=== PATIENT | male | born 1965 | race Caucasian/White ===

== ENCOUNTER 2018-04-22 02:50 | Outpatient (CLI) | payer MEDICARE, MEDICAID, SELFPAY ==
[2018-04-22 09:45] LABS: Abs Immature Grans 0.25 k/cumm (0.0-0.09); HCT 43.9 % (40.0-50.0); HGB 14.5 g/dL (13.5-17.5); Mean Corpuscular Hemoglobin 31.3 pg (27.0-33.0); Mean Corpuscular Volume 94.6 fL (80-95); Platelet Count 164 x1000/uL (130-400); RBC 4.64 m/cumm (4.50-6.00); RBC Distribution Width 14.1 % (11.8-14.1)
[2018-04-22 09:55] LABS: Ammonia 93 umol/L (11-32); VALPROIC ACID 60.3 ug/mL (50-100)
[2018-04-22 10:17] LABS: Diff Comment Manual Differential
[2018-04-22 10:18] LABS: RBC Morphology Normal
[2018-04-22 10:32] LABS: Cholesterol 115 mg/dL (50-200); HDL Cholesterol 29 mg/dL (40-60); LDL CHOLESTEROL 49 mg/dL (<100); Triglyceride 495 mg/dL (30-150)
[2018-04-22 10:38] LABS: Absolute Lymphocyte Count 1.18 k/cumm (1.2-3.4); Absolute Monocyte Count 0.33 k/cumm (0.11-0.7); Absolute Neutrophil Count 2.77 k/cumm (1.2-6.7)
[2018-04-22 10:39] LABS: Absolute Eosinophil Count 0.19 k/cumm (0.0-0.7)
== END 2018-04-22 02:51 ==
PROVIDERS: PCP Internal Medicine; Visit Provider Psychiatry & Neurology Psychiatry
DX: F25.1 Schizoaffective disorder, depressive type (principal); Z51.81 Encounter for therapeutic drug level monitoring; Z79.899 Other long term (current) drug therapy
CPT/HCPCS: 36415; 80061; 83721; 80164; 82140; 85025

== ENCOUNTER 2018-05-19 07:47 | Outpatient (CLI) | payer MEDICARE, MEDICAID, SELFPAY ==
[2018-05-19 08:25] LABS: Ammonia 30 umol/L (11-32)
[2018-05-19 08:27] LABS: VALPROIC ACID 57.2 ug/mL (50-100)
[2018-05-19 08:54] LABS: Cholesterol 117 mg/dL (50-200); HDL Cholesterol 33 mg/dL (40-60); LDL CHOLESTEROL 42 mg/dL (<100); Triglyceride 247 mg/dL (30-150)
== END 2018-05-19 08:07 ==
PROVIDERS: PCP Internal Medicine; Visit Provider Psychiatry & Neurology Psychiatry
DX: F25.9 Schizoaffective disorder, unspecified (principal); Z51.81 Encounter for therapeutic drug level monitoring
CPT/HCPCS: 36415; 80061; 83721; 80164; 82140

== ENCOUNTER 2018-06-22 15:39 | Emergency (ER) | payer MEDICARE, MEDICAID, SELFPAY ==
[2018-06-22 16:26] VITALS: BP 125/81; PULSE 70; RESP 16; TEMP 36.7; O2SAT 95
[2018-06-22] MEDS: Lidocaine/Epinephri/Tetracaine Topical Gel 3 ML (16:32)
[2018-06-22] MEDS: Clindamycin 150 MG CAP 450 MG PO (17:57)
--- NOTE | 2018-06-23 12:22 | ED.GENADUL_ITS ---
Discharge Plan Disposition Patient Disposition: HOME Condition: Good Discharge Details Chief Complaint: Cellulitis Clinical Impression: Abscess of skin of neck Primary Care Provider: Andres Beck V ED Provider: Angelo Way Home Meds and New Rx's Prescriptions: New clindamycin HCl 150 mg capsule 450 mg PO TID 7 Days Qty: 63 RF: 0 No Action gemfibrozil 600 mg Tablet 600 mg PO BID RF: 0 ferrous sulfate 325 mg (65 mg iron) Tablet 325 mg PO DAILY RF: 0 divalproex 500 mg Tablet Extended Release 24 Hr 1,000 mg PO HS RF: 0 divalproex 500 mg Tablet Extended Release 24 Hr 500 mg PO DAILY RF: 0 clonazepam 1 mg Tablet 1 mg PO HS RF: 0 tamsulosin 0.4 MG capsule 2 tab PO DAILY RF: 0 ibuprofen 200 MG tablet 2 tab PO TID PRNRF: 0 topiramate [Topamax] 100 MG tablet 100 mg PO BID RF: 0 divalproex 250 MG tablet extended release 24 hr 1 tab PO DAILY RF: 0 aripiprazole 2 MG tablet 2 mg PO DAILY RF: 0 lorazepam 1 MG tablet 1 mg PO HS RF: 0 Discharge Instructions Instructions: Abscess (ED) Additional Instructions: Please take the antibiotic as directed. Please follow-up with Dr. Chew on Friday. Please contact his office tomorrow for your scheduled appointment time. If you notice any difficulty breathing, swallowing, fever, chills, worsening of pain in your neck, please return immediately. If you notice any worsening of your symptoms, or any new symptoms such as vomiting, diarrhea, fever, chills, shortness of breath, chest pain, numbness, weakness, or fainting , please return immediately to the emergency department for reevaluation. Please follow up with your primary care provider as soon as possible for reassessment and reevaluation. As always, it was a pleasure participating in your medical care today. Dr Chew [phone] Referrals: Sarmad Caruso DO [ [facility] STAFF PHYSICIAN] - Discharge Data Discharge Date/Time-TO BE ENTERED AT DEPARTURE: 06/22/18 18:02 Medical Decision Making This is a pleasant 52-year-old male with a history of diabetes who presents for evaluation of right-sided abscess on his neck. On exam the abscess is in the superficial plane. No evidence of deep involvement with the deep neck structures or the deep vessels. Ultrasound visualization demonstrates that the abscess is superficial to the platysma. No signs of vessel involvement. No evidence of bruits or other significant abnormalities. The patient shows no physical exam red flags of difficulty with secretions, airway compromise, or crossing of midline of the abscess. Patient was sent down by his PCP for evaluation of this after the PCP had spoken with surgery. I did talk with Dr. Chew and described the scenario, physical exam findings, and patient clinical scenario. Together through shared decision making process we felt that incision and drainage of this abscess was certainly within the scope and responsibility of the emergency department. The area was dressed with let, after anesthesia was achieved with this for a period of 30 minutes of infiltration the area was incised with an 11 blade. A notable amount of purulent discharge was exuded. The area was then packed with iodoform gauze. Patient tolerated this procedure extremely well. He showed no signs of neck swelling or airway compromise. Bleeding was controlled, with no evidence of vessel involvement. The patient has been given first dose of clindamycin here, and will be given a prescription for home use. We set up follow-up with Dr. Chew to occur 48 hours after initial visit for prompt reevaluation. I had a long discussion with the patient and his caregiver who was at bedside for red flags which to immediately return and they understand. I have extensively reviewed the treatment plan and discharge instructions with the patient and their family. I have addressed all patient concerns at this time. The patient and family was made aware of what symptoms to monitor for that would warrant a return to the emergency department. Discussed the plan with the patient and family, they demonstrate verbal understanding and agreement with our assessment and plan at this time. Time out was taken to identify the correct patient, procedure, and site. Risks and benefits were discussed with the patient and consent was obtained. Ultrasound was used to locate the site of maximal fluid collection. The site was sterilized and draped in the typical fashion. Topical lidocaine was placed on the area for greater than 30 minutes and demonstrated vasoconstriction and observe into the surrounding tissue. Appropriate analgesia was obtained. The abscess was incised with an 11 blade, and a notable amount of purulent material and blood were expressed. This fluid was cultured. The wound was packed, cleaned, and dressed. Blood loss was minimal. The patient tolerated the procedure well. There were no complications HPI General Date/Time Provider Initiated Documentation: 06/22/18 17:42 . HPI Narrative: This is a 52-year-old male with a past medical history of diabetes, high cholesterol, and seizures who presents today for evaluation of abscess on his right neck. He states that for the last 4 days it is been there. It started out as a small pimple but has gradually been growing. Went to see his primary care physician at [facility], and after initial assessment due to the abscesses location the patient was referred to our emergency department for potential surgical evaluation versus incision and drainage in the department. The patient denies any complaints of difficulty breathing, difficulty swallowing, tightness in his neck, or systemic symptoms of fever, chills, chest pain, or shortness of breath. He denies any history of recent abscess similar to this. He denies any history of IV or illicit drug use. He is not on any disease modifying antirheumatic agent or immunosuppressive. Patient is not on any blood thinners. The patient has no other complaints at this time. The patient denies any recent surgeries. He denies any tobacco use. Related Data Home Medications Medication Instructions Recorded Confirmed aripiprazole 2 mg PO DAILY 11/06/16 06/22/18 divalproex 1 tab PO DAILY 11/06/16 06/22/18 ibuprofen 2 tab PO TID PRN 11/06/16 06/22/18 tamsulosin 2 tab PO DAILY 11/06/16 06/22/18 topiramate [Topamax] 100 mg PO BID 11/06/16 06/22/18 lorazepam 1 mg PO HS 03/23/18 06/22/18 clindamycin HCl 450 mg PO TID 7 Days #63 cap 06/22/18 clonazepam 1 mg PO HS 06/22/18 06/22/18 divalproex 1,000 mg PO HS 06/22/18 06/22/18 divalproex 500 mg PO DAILY 06/22/18 06/22/18 ferrous sulfate 325 mg PO DAILY 06/22/18 06/22/18 gemfibrozil 600 mg PO BID 06/22/18 06/22/18 Previous Rx's Medication Instructions Recorded clindamycin HCl 450 mg PO TID 7 Days #63 cap 06/22/18 Allergies Allergy/AdvReac Type Severity Reaction Status Date / Time No Known Allergies Allergy Unverified 06/22/18 16:27 General Stated Complaint: Cellulitis ANGELICA: 4 Review of Systems Review of Systems All systems reviewed & are unremarkable except as noted in HPI and below PFSH Social History Smoking/Tobacco Use Status: Former Tobacco Use Surgical History Colonoscopy - MAC (11/08/16) Exam Narrative Exam Narrative: 1.Const: Well-nourished, Well-developed, appearing stated age 2.Eyes: PERRL, no conjunctival injection, and symmetrical lids. 3.ENT: Atraumatic external nose and ears. Moist MM. Neck: Symmetric, trachea midline, No thyromegaly. Neck demonstrates a small to moderate sized abscess on the right side of his neck roughly 2 inches lateral to the trachea. There is no bounding or pulsatile component. No carotid or vertebral bruits. No evidence of crossing of the midline. Abscess itself is roughly 3 cm in diameter , with some mild circumferential erythema extending roughly half a centimeter past the abscess itself. Fluctuance is noted. Erythema and warmth are present. No evidence of crossing midline, no evidence of blood weeks angina, no signs of airway compromise, or swelling in the posterior oropharynx. Patient is able to control his secretions perfectly well. No signs of meningiomas. Normal movement of the neck without any significant pain. Bedside ultrasound demonstrates evidence of the external jugular being slightly lateral to the abscess, the internal jugular and carotid being 3 cm deep to the abscess. The abscess itself is in the superficial plane, with no deep involvement. 4.CVS: +S1/S2, No murmurs or gallops. Peripheral pulses 2+ and equal in all extremities. Brisk capillary refill in all extremities. 5.RESP: Unlabored respiratory effort. Clear to auscultation bilaterally. No wheezes rales or rhonchi 6.GI: Soft, Nontender/Nondistended, No hepatosplenomegaly. No guarding or rebound. 7.MSK: Normocephalic/Atraumatic, Extremities w/o deformity or ttp No cyanosis or clubbing, Normal movement of all extremities 8.Skin: Warm, Dry. No rashes or lesions. Please see ENT description for abscess description. 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 Sensation grossly intact, no focal neurologic deficits. 10.Psych: (AAO) x3. Appropriate mood and affect Course Vital Signs Temperature 36.7 C 06/22/18 16:26 Pulse 70 06/22/18 16:26 Respiratory Rate 16 06/22/18 16:26 Blood Pressure 125/81 06/22/18 16:26 Pulse Oximetry 95 06/22/18 16:26 Temperature 36.7 C 06/22/18 16:26 Temperature Source Temporal Artery Scan 06/22/18 16:26 Pulse 70 06/22/18 16:26 Respiratory Rate 16 06/22/18 16:26 Respiratory Effort Non-Labored 06/22/18 17:03 Blood Pressure 125/81 06/22/18 16:26 Pulse Oximetry 95 06/22/18 16:26 Oxygen Delivery Method Room Air 06/22/18 16:26 Oxygen Flow Rate 0 06/22/18 16:26 Pain Level 3 06/22/18 18:29 Lab/Test Results Lab/Test Results: 06/22/18 17:30 Neck - Right Wound Culture - Preliminary Normal Farzaneh 06/22/18 17:30 Neck - Right Gram Stain - Final
== END 2018-06-22 18:02 | disposition home or self-care (01) ==
PROVIDERS: Emergency Provider Student in an Organized Health Care Education/Training Program; PCP Physician Assistant Medical
DX: L02.11 Cutaneous abscess of neck (principal); E11.9 Type 2 diabetes mellitus without complications; J44.9 Chronic obstructive pulmonary disease, unspecified; Z87.891 Personal history of nicotine dependence; I10 Essential (primary) hypertension
CPT/HCPCS: 10061; 87070; 87205

== ENCOUNTER → 2018-06-24 10:16 | Outpatient (BNVA) | payer MEDICARE, MEDICAID, SELFPAY | PROVIDERS: PCP Physician Assistant Medical; Referring Provider Physician Assistant Medical; Visit Provider Surgery | DX: L02.91 Cutaneous abscess, unspecified (principal); J44.9 Chronic obstructive pulmonary disease, unspecified; Z87.891 Personal history of nicotine dependence; E11.9 Type 2 diabetes mellitus without complications | CPT/HCPCS: 99212; 99213 ==

== ENCOUNTER 2018-07-15 07:26 | Outpatient (CLI) | payer MEDICARE, MEDICAID, SELFPAY ==
[2018-07-15 09:22] LABS: Anion Gap 11.2 mmol/L (3-11); BUN 22 mg/dL (7-18); CO2 21.8 mmol/L (21.0-32.0); CREATININE 0.96 mg/dL (0.70-1.30); Chloride 108 mmol/L (98-107); Cholesterol 138 mg/dL (50-200); Glucose 115 mg/dL (70-100); HDL Cholesterol 32 mg/dL (40-60); LDL CHOLESTEROL 56 mg/dL (<100); Potassium 4.2 mmol/L (3.5-5.1); Sodium 141 mmol/L (136-145); Triglyceride 246 mg/dL (30-150)
== END 2018-07-15 07:46 ==
PROVIDERS: PCP Physician Assistant Medical; Visit Provider Physician Assistant Medical
DX: I10 Essential (primary) hypertension (principal); Z13.6 Encounter for screening for cardiovascular disorders
CPT/HCPCS: 36415; 80048; 80061; 83721

== ENCOUNTER 2018-09-09 01:26 | Outpatient (CLI) | payer MEDICARE, MEDICAID, SELFPAY ==
--- NOTE | 2018-09-09 10:30 | MERGE_ITS ---
*[facility]* *[facility]* [address] [place] [address] Date of study: 09/09/2018 Transthoracic Echocardiography M-mode, complete 2D, complete spectral Doppler, and color Doppler *STUDY CONCLUSIONS* Summary: 1. Left ventricle: The cavity size was normal. Wall thickness was normal. Systolic function was normal. The estimated ejection fraction was 55-60%. Wall motion was normal; there were no regional wall motion abnormalities. Diastolic parameters were normal. 2. Right ventricle: The cavity size was normal. Wall thickness was normal. Systolic function was normal. *PATIENT PRESENTATION* Height: 182.9cm ((72in) ) S/D Pressure: 126 / 75 Weight: 115.1kg ((253.2lb) ) BSA: 2.46m^2 Test start time: 10:40 AM. Test stop time: 11:40 AM. PERFORMING [facility] CHAINMAN RT Abdirashid (R)(CT), [facility] ORDERING Andres Beck V REFERRING Andres Beck V *PROCEDURE DATA* Procedure information: The patient was identified by two identifiers. This study was interpreted by [facility]. Pertinent images and digital data are archived for permanent storage and are available for subsequent review. No prior study was available for comparison. Study status: Routine. Transthoracic echocardiography. M-mode, complete 2D, complete spectral Doppler, and color Doppler. A Transthoracic Echocardiogram was performed. Scanning was performed from the parasternal, apical, subcostal, and suprasternal notch acoustic windows. Images were obtained using an [id number] cardiac ultrasound machine. Study completion: The patient tolerated the procedure well. There were no complications. *CARDIAC ANATOMY* Left ventricle: The cavity size was normal. Wall thickness was normal. Systolic function was normal. The estimated ejection fraction was 55-60%. Wall motion was normal; there were no regional wall motion abnormalities. Diastolic parameters were normal. Aortic valve: Trileaflet; normal thickness leaflets. Mobility was not restricted. Doppler: Transvalvular velocity was within the normal range. There was no stenosis. There was no significant regurgitation. VTI ratio of LVOT to aortic valve: 0.8. Valve area (VTI): 3cm^2. Indexed valve area (VTI): 1.2cm^2/m^2. Peak velocity ratio of LVOT to aortic valve: 0.87. Valve area (Vmax): 3.3cm^2. Indexed valve area (Vmax): 1.3cm^2/m^2. Mean velocity ratio of LVOT to aortic valve: 0.67. Valve area (Vmean): 2.5cm^2. Indexed valve area (Vmean): 1cm^2/m^2. Mean gradient (S): 2.7mm Hg. Peak gradient (S): 3.9mm Hg. Aorta: Aortic root: The aortic root was normal in size. Ascending aorta: The ascending aorta was normal in size. Mitral valve: Structurally normal valve. Mobility was not restricted. Doppler: Transvalvular velocity was within the normal range. There was no evidence for stenosis. There was no significant regurgitation. Valve area by pressure half-time: 4.3cm^2. Indexed valve area by pressure half-time: 1.8cm^2/m^2. Peak gradient (D): 4.8mm Hg. Left atrium: The atrium was normal in size. Right ventricle: The cavity size was normal. Wall thickness was normal. Systolic function was normal. Pulmonic valve: Structurally normal valve. Doppler: Transvalvular velocity was within the normal range. There was no evidence for stenosis. There was trivial regurgitation. Peak gradient (S): 3.2mm Hg. Tricuspid valve: Structurally normal valve. Doppler: Transvalvular velocity was within the normal range. There was no evidence for stenosis. There was no significant regurgitation. Pulmonary artery: Pulmonary systolic pressure was within the normal range, in the range of 25mm Hg to 35mm Hg. Right atrium: The atrium was normal in size. Pericardium: There was no pericardial effusion. Systemic veins: Inferior vena cava: Well visualized. The vessel was dilated. The respirophasic diameter changes were blunted (less than 50%). Baseline ECG: Normal sinus rhythm. Measurements Left ventricle Value Reference LV ID, ED, PLAX 5.7 cm 3.5 - 6.0 LV ID, ES, PLAX 4.0 cm 2.1 - 4.0 LV PW thickness, ED, PLAX 1.0 cm LV end-diastolic volume, 1-p A2C 173 ml LV ejection fraction, 1-p A2C 54 % LV end-diastolic volume, 1-p A4C 190 ml LV ejection fraction, 1-p A4C 57 % LV e', lateral 0.111 m/sec LV E/e', lateral 10 LV e', medial 0.104 m/sec LV E/e', medial 11 LV e', average 0.108 m/sec LV E/e', average 10 Ventricular septum Value Reference IVS thickness, ED, PLAX 1.0 cm LVOT Value Reference LVOT ID, A-P 2.2 cm LVOT area 3.8 cm^2 LVOT peak velocity, S 0.86 m/sec LVOT mean velocity, S 0.53 m/sec LVOT VTI, S 18.5 cm LVOT peak gradient, S 2.9 mm Hg LVOT mean gradient, S 1.4 mm Hg Stroke volume (SV), LVOT DP 70 ml Stroke index (SV/bsa), LVOT DP 29 ml/m^2 Aortic valve Value Reference Aortic valve peak velocity, S 1 m/sec Aortic valve mean velocity, S 0.79 m/sec Aortic valve VTI, S 23.0 cm Aortic mean gradient, S 2.7 mm Hg Aortic peak gradient, S 3.9 mm Hg VTI ratio, LVOT/AV 0.8 Aortic valve area, VTI 3 cm^2 Velocity ratio, peak, LVOT/AV 0.87 Aortic valve area, peak velocity 3.3 cm^2 Velocity ratio, mean, LVOT/AV 0.67 Aortic valve area, mean velocity 2.5 cm^2 Aortic valve area/bsa, mean velocity 1 cm^2/m^2 Aorta Value Reference Aortic root ID, ED 3.6 cm Ascending aorta ID, A-P, S 3.1 cm Left atrium Value Reference LA area, ES, A4C 18.6 cm^2 8.8 - 23.4 LA area, ES, A2C 17 cm^2 LA volume/bsa, ES, 1-p A4C 25 ml/m^2 LA volume, ES, 2-p 47 ml LA volume/bsa, ES, 2-p 19 ml/m^2 Mitral valve Value Reference Mitral E-wave peak velocity 1.09 m/sec Mitral A-wave peak velocity 0.86 m/sec Mitral deceleration time 176 ms 150 - 230 Mitral pressure half-time 51 ms Mitral peak gradient, D 4.8 mm Hg Mitral E/A ratio, peak 1.28 Mitral valve area, PHT, DP 4.3 cm^2 Pulmonary veins Value Reference Pulmonary vein peak velocity, S 0.55 m/sec Pulmonary vein peak velocity, D 0.47 m/sec Pulmonary vein velocity ratio, peak, 1.17 S/D Pulmonary vein A-wave reversal peak 0.37 m/sec velocity Tricuspid valve Value Reference Tricuspid regurg peak velocity 2.5 m/sec Tricuspid peak RV-RA gradient 24.1 mm Hg Right atrium Value Reference RA area, ES, A4C 15.8 cm^2 8.3 - 19.5 Pulmonic valve Value Reference Pulmonic peak gradient, S 3.2 mm Hg Legend: (L) and (H) pippa values outside specified reference range. I have personally reviewed the images and have reviewed and edited the reported findings. Electronically signed by Corbin Rivera 09/09/2018 12:41
== END 2018-09-09 01:46 ==
PROVIDERS: PCP Physician Assistant Medical; Visit Provider Physician Assistant Medical
DX: R60.9 Edema, unspecified (principal); I10 Essential (primary) hypertension
CPT/HCPCS: 93306

== ENCOUNTER 2019-03-19 08:11 | Outpatient (CLI) | payer MEDICARE, MEDICAID, SELFPAY ==
[2019-03-19 09:43] LABS: Lithium 0.72 mmol/L (0.60-1.20)
[2019-03-19 09:51] LABS: ALT 46 U/L (12-78); AST 20 U/L (15-37); Albumin 4.1 g/dL (3.4-5.0); Alkaline Phosphatase 87 U/L (46-116); BUN 21 mg/dL (7-18); Bilirubin, Total 0.4 mg/dL (0.2-1.0); CREATININE 1.08 mg/dL (0.70-1.30); Calcium 9.3 mg/dL (8.5-10.1); Calculated LDL 51 mg/dL; Chloride 105 mmol/L (98-107); Cholesterol 135 mg/dL (50-200); Glucose 114 mg/dL (70-100); HDL Cholesterol 26 mg/dL (40-60); Magnesium 1.9 mg/dL (1.8-2.4); Potassium 4.1 mmol/L (3.5-5.1); Sodium 140 mmol/L (136-145); Total Protein 7.7 g/dL (6.4-8.2); Triglyceride 294 mg/dL (30-150)
== END 2019-03-19 08:31 ==
PROVIDERS: PCP Physician Assistant Medical; Visit Provider Psychiatry & Neurology Psychiatry
DX: E11.9 Type 2 diabetes mellitus without complications (principal); I10 Essential (primary) hypertension; F25.1 Schizoaffective disorder, depressive type; Z51.81 Encounter for therapeutic drug level monitoring; Z79.899 Other long term (current) drug therapy
CPT/HCPCS: 36415; 80053; 80061; 83721; 80178; 83735; 84443

== ENCOUNTER 2019-12-28 00:41 | Outpatient (CLI) | payer MEDICARE, MEDICAID, SELFPAY ==
--- NOTE | 2019-12-28 10:05 | DI.RAD_ITS ---
EXAM: XR ABDOMEN FLAT UPRIGHT CLINICAL HISTORY: H/O LOOSE STOOL,? OVERFLOW DIARRHEA, ASSESS BURDEN OF STOOL, ? CONSTIPATION TECHNIQUE: 2D digital imaging was performed. COMPARISON: No exams were available for comparison FINDINGS: The heart size is normal. The visualized portions of the lungs appear clear. No free air is seen b eneath the diaphragm. There is increased quantity of stool seen throughout the colon. There is no a bnormal bowel distention or air-fluid levels. There is no gross evidence of urinary tract calcificat ion. No organomegaly is seen. IMPRESSION: Increased quantity of stool throughout the colon. No evidence obstruction.
[2019-12-28 10:38] LABS: Abs Immature Grans 0.15 k/cumm (0.0-0.09); Absolute Basophil Count 0.03 k/cumm (0.0-0.2); Absolute Eosinophil Count 0.42 k/cumm (0.0-0.7); Absolute Lymphocyte Count 1.72 k/cumm (1.2-3.4); Absolute Neutrophil Count 3.65 k/cumm (1.2-6.7); Basophils % 0.5; Eosinophils % 6.6; HCT 44.7 % (40.0-50.0); HGB 14.7 g/dL (13.5-17.5); Immature Grans % 2.4 %; Mean Corp. HGB Concentration 32.9 g/dL (32.0-36.0); Mean Corpuscular Hemoglobin 29.6 pg (27.0-33.0); Mean Corpuscular Volume 89.9 fL (80-95); Mean Platelet Volume 11.7 fL (8.0-11.0); Monocytes % 6.3; Neutrophils % 57.2; Platelet Count 193 x1000/uL (130-400); RBC 4.97 m/cumm (4.50-6.00); RBC Distribution Width 15.2 % (11.8-14.1); White Blood Cell Count 6.37 k/cumm (4.4-10.8)
[2019-12-28 11:03] LABS: ALT 45 U/L (16-63); AST 22 U/L (15-37); Albumin 4.3 g/dL (3.4-5.0); Alkaline Phosphatase 77 U/L (46-116); Anion Gap 11.4 mmol/L (3-11); BUN 17 mg/dL (7-18); Bilirubin, Total 0.6 mg/dL (0.2-1.0); C-Reactive Protein < 0.05 mg/dL (0.0-0.3); CO2 21.6 mmol/L (21.0-32.0); Calcium 9.5 mg/dL (8.5-10.1); Chloride 107 mmol/L (98-107); Glucose 145 mg/dL (74-106); Potassium 3.8 mmol/L (3.5-5.1); Sodium 140 mmol/L (136-145); TSH 2.04 uIU/mL (0.36-3.74); Total Protein 8.2 g/dL (6.4-8.2)
[2019-12-29 15:11] LABS: IgA 134 mg/dL (85-499); IgG 1327 mg/dL (610-1,616); IgM 90 mg/dL (35-242)
[2019-12-29 20:45] LABS: Tissue Transglutaminase Ab IgA <1.2 U/mL
== END 2019-12-28 01:01 ==
PROVIDERS: PCP Physician Assistant Medical; Visit Provider Oral & Maxillofacial Surgery
DX: R19.7 Diarrhea, unspecified (principal); R19.5 Other fecal abnormalities; K59.00 Constipation, unspecified; R15.9 Full incontinence of feces
CPT/HCPCS: 36415; 80053; 82784; 74019; 83516; 84443; 85025; 86140

== ENCOUNTER → 2020-02-21 10:28 | Outpatient (BNVA) | payer MEDICARE, MEDICAID, SELFPAY | PROVIDERS: PCP Physician Assistant Medical; Referring Provider Physician Assistant Medical; Visit Provider Nurse Practitioner Gerontology | DX: N40.0 Benign prostatic hyperplasia without lower urinary tract symptoms (principal); R32 Unspecified urinary incontinence; J44.9 Chronic obstructive pulmonary disease, unspecified; E11.9 Type 2 diabetes mellitus without complications; Z87.891 Personal history of nicotine dependence | CPT/HCPCS: 81003; 99204; 99215 ==

== ENCOUNTER 2020-02-21 12:06 | Outpatient (CLI) | payer MEDICARE, MEDICAID, SELFPAY ==
[2020-02-22 09:18] LABS: PSA, Screening 0.7 ng/mL (0.0-3.5)
== END 2020-02-21 12:26 ==
PROVIDERS: PCP Physician Assistant Medical; Visit Provider Nurse Practitioner Gerontology
DX: N40.0 Benign prostatic hyperplasia without lower urinary tract symptoms (principal); R32 Unspecified urinary incontinence; Z12.5 Encounter for screening for malignant neoplasm of prostate
CPT/HCPCS: 84153

== ENCOUNTER 2020-02-26 00:24 | Emergency (ER) | payer MEDICARE, MEDICAID, SELFPAY ==
--- NOTE | 2020-02-26 00:30 | DI.CT_ITS ---
EXAM: CT ABDOMEN PELVIS W CLINICAL HISTORY: RLQ abdominal pain, r/o appe/obstruction TECHNIQUE: Imaging Protocol: Axial computed tomography images with coronal and sagittal reformatted images were created and reviewed CONTRAST MATERIAL: Intravenous: Omnipaque 350 Contrast volume:100 mL Oral: No COMPARISON: No exams were available for comparison FINDINGS: There is scarring or atelectasis in the right lung base. The liver is mildly enlarged. No hepatic m ass is seen. The portal, superior mesenteric and splenic veins are patent. The gallbladder is unrem arkable. There is no biliary ductal dilatation. The pancreas is unremarkable. There is mild spleno megaly. The adrenal glands are unremarkable. The kidneys show normal size. No solid renal mass is present. Nonobstructing stones are seen in the right kidney. There is a small cyst in the inferior pole of the left kidney. The urinary bladder is intact. The reproductive organs are unremarkable. Bowel shows no evidence of obstruction or inflammation. There is a normal appendix present. There i s atherosclerosis of the abdominal aorta but no aneurysmal dilatation. No significant abdominal or p elvic ascites or pneumoperitoneum is present. There is mild stranding in the central mesentery and m ildly prominent mesenteric lymph nodes. There is a small fat containing umbilical hernia. Degenerat fritz changes are seen in the spine. IMPRESSION: 1. No evidence of acute appendicitis. A normal appendix is visualized. 2. Right nephrolithiasis. No hydronephrosis. 3. Mild mesenteric stranding with mildly prominent lymph nodes in the region which may represent mese nteric adenitis or mesenteritis. 4. Mild hepatosplenomegaly. RADIATION DOSE DELIVERED: Total DLP DATA REPOSITORY: All CT scans at this facility are submitted to the National Radiology Data Registry (NRDR) Dose Index Registry (DIR) with the [employer] (A[employer]). RADIATION OPTIMIZATION: All CT scans at this facility use at least one of these dose optimization te chniques: automated exposure control; mA and/or kV adjustment per patient size (includes targeted exa ms where dose is matched to clinical indication); or iterative reconstruction.
[2020-02-26 00:32] VITALS: BP 128/68; PULSE 87; RESP 16; TEMP 37.2; O2SAT 97
--- NOTE | 2020-02-26 00:34 | ED.GENADUL_ITS ---
Discharge Plan Disposition Patient Disposition: HOME Condition: Good Discharge Details Chief Complaint: Abd Prob Clinical Impression: Acute mesenteric adenitis Primary Care Provider: Andres Beck V ED Provider: Angelo Way Home Meds and New Rx's Prescriptions: Continued lorazepam 2 mg tablet 2 mg PO DAILY PRNRF: 0 famotidine 20 mg tablet 20 mg PO DAILY RF: 0 Reguloid (psyllium husk) 3 gram/5.4 gram powder 1 tbs PO DAILY RF: 0 Dairy Relief 9,000 unit tablet 9,000 unit PO ONCE PRN (Reason: lactose intolerance) RF: 0 Humira 40 mg/0.8 mL syringe kit 40 mg SC Q2W RF: 0 risperidone [Risperdal] 1 mg tablet 1 mg PO TID RF: 0 lithium carbonate 300 mg capsule 300 mg PO BID RF: 0 prazosin 1 mg capsule 8 mg PO QHS RF: 0 finasteride 5 mg tablet 5 mg PO DAILY Qty: 30 RF: 2 gemfibrozil 600 mg Tablet 600 mg PO BID RF: 0 clonazepam 1 mg tablet 1 mg PO BID RF: 0 tamsulosin 0.4 MG capsule 2 tab PO DAILY RF: 0 ibuprofen 200 MG tablet 2 tab PO TID PRNRF: 0 topiramate [Topamax] 100 MG tablet 100 mg PO BID RF: 0 lorazepam 1 MG tablet 1 mg PO HS RF: 0 Discharge Instructions Instructions: Mesenteric Adenitis (ED) Additional Instructions: At this time your abdominal pain is being caused from something called mesenteric adenitis which is mild inflammation around some of the structures in your abdomen. This is often caused from a virus or some other iow-zrcr-cmeavgwxyys cause. It usually resolves on its own with time. Please stick with an easy diet over the next 2 to 3 days of liquids, oatmeal, rice, toast, applesauce or bananas. Avoid any spicy or citrus-based foods. Drink p lenty of fluids. Please take Tylenol and Motrin as needed for pain. If you notice any worsening of your symptoms, or any new symptoms such as vomiting, diarrhea, fever, chills, shortness of breath, chest pain, numbness, weakness, or fainting , please return immediately to the emergency department for reevaluation. Please follow up with your primary care provider as soon as possible for reassessment and reevaluation. As always, it was a pleasure participating in your medical care today. Referrals: Andres Beck V [Primary Care Provider] - Medical Decision Making 54-year-old male with a past medical history of type 2 diabetes, developmental disorder, schizoaffective disorder, BPH, COPD, presents today for evaluation of abdominal pain. The patient is a difficult historian secondary to his baseline. He is with his guardian at this time. Patient states that for the last 2 days he has had abdominal pain located in the right lower quadrant. He has been nauseous but denies any recent vomiting. He did have a bowel movement yesterday which did have some small bright red blood in it, but no melanotic stool per the caregivers. He was initially constipated that he knew was attributed to straining and he has not been eating much secondary to his abdominal pain. He denies any radiation, urinary complaints or genital complaints. He denies chest pain or shortness of breath. No other complaints at this time. He does have a history of previous constipation but states this feels different. Physical exam demonstrates a mildly distended abdomen, reduced bowel sounds, notable tenderness in the right lower quadrant but mild diffuse tenderness throughout. Genital exam normal, symptoms inconsistent with torsion. Differential is highest for appendicitis, constipation obstruction or Denise syndrome. We will gently rehydrate, treat the patient's pain, get a CT scan, monitor closely and reassess. [address] scan results have returned, no evidence of acute appendicitis per virtual radiology. Patient does have signs and symptoms consistent with mesenteric adenitis. Patient's laboratory work-up has returned, notably benign, no white count bandemia or left shift, normal electrolytes and normal lipase. Patient's pain is notably resolved on reassessment, and is asking to eat food. Will do a p.o. trial. Still pending UA. At this time though clinically the patient symptoms are clinically consistent with mesenteric adenitis and inconsistent with an acute life-threatening intra-abdominal pathology, GI bleed or other abnormality. 30 a.m. Patient's tolerated p.o. trial well, urinalysis negative. Requesting discharge home. Patient will be discharged with the care of his caregivers. I have extensively reviewed the treatment plan and discharge instructions with the patient and their family. I have addressed all patient concerns at this time. The patient and family was made aware of what symptoms to monitor for that would warrant a return to the emergency department. Discussed the plan with the patient and family, they demonstrate verbal understanding and agreement with our assessment and plan at this time. FINDINGS: Lungs: Patchy peripheral reticular density in the right lung base may represent subsegmental atelectasis or early/mild peripheral interstitial fibrosis. Heart: Heart size normal. Mediastinal space: The visualized distal esophagus is normal. Liver: Mild hepatomegaly measuring 21 cm craniocaudal No mass lesions. No intrahepatic biliary ductal dilatation. Gallbladder and bile ducts: Normal. No calcified stones. No ductal dilation. Pancreas: Normal. No inflammatory changes or ductal dilation. Spleen: Mild splenomegaly measuring 15.2 cm maximum dimension. Adrenals: Normal. No adrenal mass. Kidneys and ureters: No acute abnormalities. No hydronephrosis or hydroureter. 4 mm nonobstructive right renal stone. No ureteral stones. Stomach and bowel: The stomach is grossly normal. The small bowel is normal with no evidence of obstruction. No acute colonic abnormalities. Appendix: The appendix is normal in caliber and demonstrates no evidence of appendicitis. Intraperitoneal space: No free fluid or air. Vasculature: Mild atherosclerotic aortoiliac calcification without aneurysm. Lymph nodes: There is mild central mesenteric haziness/stranding in the left upper quadrant with a few slightly prominent mesenteric nodes measuring up to 7.5 mm short axis. This is suspicious for mild mesenteric adenitis/mesenteritis. No associated bowel wall abnormalities or fluid collections were seen. Bladder: Unremarkable as visualized. Reproductive: Moderately enlarged prostate. Bones/joints: No acute osseous abnormalities. Soft tissues: Small fatty umbilical hernia . No evidence of associated bowel herniation or bowel obstruction. IMPRESSION: 1. Normal appendix. 2. 4 mm nonobstructive right renal stone. No ureteral stones or hydronephrosis. 3. Mild central mesenteric haziness/stranding with a few slightly prominent mesenteric nodes in this region, suspicious for mild mesenteric adenitis/mesenteritis. 4. Mild hepatomegaly and mild splenomegaly. 5. Patchy peripheral reticular densities in the right lung base could relate to peripheral scarring and atelectasis or early/mild interstitial fibrosis. 6. Additional incidental findings detailed above. Thank you for allowing us to participate in the care of your patient. Dictated and Authenticated by: Alejo Murillo MD 02/26/2020 1:54 AM Eastern Time ([place] & [place]) HPI General Date/Time Provider Initiated Documentation: 06/20/20 00:25 . HPI Narrative: 54-year-old male with a past medical history of type 2 diabetes, developmental disorder, schizoaffective disorder, BPH, COPD, presents today for evaluation of abdominal pain. The patient is a difficult historian secondary to his baseline. He is with his guardian at this time. Patient states that for the last 2 days he has had abdominal pain located in the right lower quadrant. He has been nauseous but denies any recent vomiting. He did have a bowel movement yesterday which did have some small bright red blood in it, but no melanotic stool per the caregivers. He has had normal bowel movements since then. He has not been eating much secondary to his abdominal pain. He denies any radiation, urinary complaints or genital complaints. He denies chest pain or shortness of breath. No other complaints at this time. He does have a hist ory of previous constipation but states this feels different. Related Data Home Medications Medication Instructions Recorded Confirmed ibuprofen 2 tab PO TID PRN 11/06/16 02/21/20 tamsulosin 2 tab PO DAILY 11/06/16 02/21/20 topiramate [Topamax] 100 mg PO BID 11/06/16 02/21/20 lorazepam 1 mg PO HS 03/23/18 02/21/20 gemfibrozil 600 mg PO BID 06/22/18 02/21/20 adalimumab 40 mg/0.8 mL 40 mg SC Q2W 11/08/19 02/21/20 subcutaneous syringe kit lithium carbonate 300 mg capsule 300 mg PO BID 11/08/19 02/21/20 risperidone 1 mg tablet 1 mg PO TID tab 11/08/19 02/21/20 clonazepam 1 mg tablet 1 mg PO BID tab 02/21/20 02/21/20 famotidine 20 mg tablet 20 mg PO DAILY 02/21/20 02/21/20 lactase 9,000 unit tablet 9,000 unit PO ONCE PRN 02/21/20 02/21/20 lorazepam 2 mg tablet 2 mg PO DAILY PRN 02/21/20 02/21/20 prazosin 1 mg capsule 8 mg PO QHS cap 02/21/20 02/21/20 psyllium husk 3 gram/5.4 gram oral 1 tbs PO DAILY 02/21/20 02/21/20 powder finasteride 5 mg tablet 5 mg PO DAILY #30 tab 02/22/20 Previous Rx's Medication Instructions Recorded finasteride 5 mg tablet 5 mg PO DAILY #30 tab 02/22/20 Allergies Allergy/AdvReac Type Severity Reaction Status Date / Time lactose Allergy Verified 02/26/20 00:58 General ANGELICA: 4 Review of Systems All systems reviewed & are unremarkable except as noted in HPI and below PFSH Medical History Asthma (Chronic) BPH (benign prostatic hyperplasia) (Chronic) Chronic diarrhea (Acute) COPD (chronic obstructive pulmonary disease) (Chronic) Diabetes mellitus type 2 in obese (Chronic) Drug-induced Parkinsonism (Acute) Edema (Acute) Foot callus (Acute) History of seizure disorder (Chronic) Hyperlipidemia (Chronic) Impulse disorder (Chronic) Lactose intolerance (Acute) Prostatic hypertrophy (Acute) Psoriasis (Chronic) Schizoaffective disorder (Chronic) Seizures (Acute) Skin cancer (Acute) Sleep disturbance (Acute) Urge incontinence (Acute) Urinary incontinence (Acute) Surgical History Colonoscopy - MAC (11/08/16) H/O pilonidal cyst (Resolved) Social History Smoking/Tobacco Use Status: Former Tobacco Use Alcohol Intake: never Drug use: Never Substance use type: does not use Do you feel safe at home: Yes Do you feel safe in your relationship?: Yes Exam Narrative Exam Narrative: 1.Const: Well-nourished, Well-developed, appearing stated age 2.Eyes: PERRL, no conjunctival injection, and symmetrical lids. 3.ENT: Atraumatic external nose and ears. Moist MM. Neck: Symmetric, trachea midline, No thyromegaly. 4.CVS: +S1/S2, No murmurs or gallops. Peripheral pulses 2+ and equal in all e xtremities. Brisk capillary refill in all extremities. 5.RESP: Unlabored respiratory effort. Clear to auscultation bilaterally. No wheezes rales or rhonchi 6.GI: Mildly distended abdomen, voluntary guarding, rebound in the right lower quadrant, mild diffuse tenderness throughout. Genital exam demonstrates normal male genitalia, no testicular or scrotal tenderness, normal cremasteric reflex bilaterally. No evidence of testicular torsion. 7.MSK: Normocephalic/Atraumatic, Extremities w/o deformity or ttp No cyanosis or clubbing, Normal movement of all extremities 8.Skin: Warm, Dry. No rashes or lesions. 9.Neuro: wood last maker II-XII grossly intact. Sensation grossly intact, no focal neurologic deficits. 10.Psych: (AAO) x3. Appropriate mood and affect
[2020-02-26] MEDS: Normal Saline 500 ML IV (00:48)
[2020-02-26 00:56] LABS: Absolute Basophil Count 0.03 k/cumm (0.0-0.2); Absolute Eosinophil Count 0.42 k/cumm (0.0-0.7); Absolute Lymphocyte Count 1.89 k/cumm (1.2-3.4); Absolute Monocyte Count 0.57 k/cumm (0.11-0.7); Basophils % 0.5; Eosinophils % 6.5; HCT 42.5 % (40.0-50.0); HGB 14.3 g/dL (13.5-17.5); Immature Grans % 1.5 %; Mean Corp. HGB Concentration 33.6 g/dL (32.0-36.0); Mean Corpuscular Hemoglobin 30.4 pg (27.0-33.0); Mean Corpuscular Volume 90.4 fL (80-95); Mean Platelet Volume 11.8 fL (8.0-11.0); Monocytes % 8.8; Neutrophils % 53.7; Platelet Count 174 x1000/uL (130-400); RBC Distribution Width 14.7 % (11.8-14.1); White Blood Cell Count 6.51 k/cumm (4.4-10.8)
[2020-02-26 00:58] VITALS: PULSE 77; RESP 17
[2020-02-26 01:00] VITALS: PULSE 79; RESP 18
[2020-02-26 01:08] LABS: ALT 41 U/L (16-63); AST 20 U/L (15-37); Albumin 4.2 g/dL (3.4-5.0); Alkaline Phosphatase 75 U/L (46-116); Anion Gap 12.5 mmol/L (3-11); BUN 18 mg/dL (7-18); Bilirubin, Total 0.4 mg/dL (0.2-1.0); CO2 21.5 mmol/L (21.0-32.0); CREATININE 1.17 mg/dL (0.70-1.30); Calcium 9.2 mg/dL (8.5-10.1); Chloride 105 mmol/L (98-107); Glucose 146 mg/dL (74-106); Lipase 178 U/L (73-393); Potassium 3.8 mmol/L (3.5-5.1); Sodium 139 mmol/L (136-145)
[2020-02-26 01:10] VITALS: PULSE 79; RESP 18
[2020-02-26 01:10] LABS: PTT Activated 27.1 sec (21.0-31.4)
[2020-02-26 01:23] LABS: Prothrombin Time 10.3 sec (9.3-11.0)
[2020-02-26] MEDS: Omnipaque 350 MG/ML 100 ML BTL IJ (01:31)
[2020-02-26] MEDS: Normal Saline Flush 10 ML SYR IVP (01:32)
[2020-02-26] MEDS: Normal Saline - Diluent 50 ML VIAL IV (01:33)
--- NOTE | 2020-02-26 01:55 | DI.VRAD_ITS ---
PROCEDURE INFORMATION: Exam: CT Abdomen And Pelvis With Contrast Exam date and time: 02/26/2020 1:23 AM Age: 54 years old Clinical indication: Abdominal pain; Other: Rlq TECHNIQUE: Imaging protocol: Computed tomography of the abdomen and pelvis with intravenous contrast. Radiation optimization: All CT scans at this facility use at least one of these dose optimization techniques: automated exposure control; mA and/or kV adjustment per patient size (includes targeted exams where dose is matched to clinical indication); or iterative reconstruction. Contrast material: OMNIPAQUE 350; Contrast volume: 100 ml; Contrast route: INTRAVENOUS (IV); COMPARISON: CR XR ABDOMEN FLAT UPRIGHT 12/28/2019 10:00 AM FINDINGS: Lungs: Patchy peripheral reticular density in the right lung base may represent subsegmental atelectasis or early/mild peripheral interstitial fibrosis. Heart: Heart size normal. Mediastinal space: The visualized distal esophagus is normal. Liver: Mild hepatomegaly measuring 21 cm craniocaudal No mass lesions. No intrahepatic biliary ductal dilatation. Gallbladder and bile ducts: Normal. No calcified stones. No ductal dilation. Pancreas: Normal. No inflammatory changes or ductal dilation. Spleen: Mild splenomegaly measuring 15.2 cm maximum dimension. Adrenals: Normal. No adrenal mass. Kidneys and ureters: No acute abnormalities. No hydronephrosis or hydroureter. 4 mm nonobstructive right renal stone. No ureteral stones. Stomach and bowel: The stomach is grossly normal. The small bowel is normal with no evidence of obstruction. No acute colonic abnormalities. Appendix: The appendix is normal in caliber and demonstrates no evidence of appendicitis. Intraperitoneal space: No free fluid or air. Vasculature: Mild atherosclerotic aortoiliac calcification without aneurysm. Lymph nodes: There is mild central mesenteric haziness/stranding in the left upper quadrant with a few slightly prominent mesenteric nodes measuring up to 7.5 mm short axis. This is suspicious for mild mesenteric adenitis/mesenteritis. No associated bowel wall abnormalities or fluid collections were seen. Bladder: Unremarkable as visualized. Reproductive: Moderately enlarged prostate. Bones/joints: No acute osseous abnormalities. Soft tissues: Small fatty umbilical hernia . No evidence of associated bowel herniation or bowel obstruction. IMPRESSION: 1. Normal appendix. 2. 4 mm nonobstructive right renal stone. No ureteral stones or hydronephrosis. 3. Mild central mesenteric haziness/stranding with a few slightly prominent mesenteric nodes in this region, suspicious for mild mesenteric adenitis/mesenteritis. 4. Mild hepatomegaly and mild splenomegaly. 5. Patchy peripheral reticular densities in the right lung base could relate to peripheral scarring and atelectasis or early/mild interstitial fibrosis. 6. Additional incidental findings detailed above. Dictated and Authenticated by: Alejo Murillo MD. Ordering:CANDACE Stephens MD
[2020-02-26 02:00] VITALS: PULSE 81; TEMP 36.9; O2SAT 97
[2020-02-26] MEDS: Ketorolac 30 MG/ML VIAL IVP (02:04)
[2020-02-26 02:23] LABS: Bilirubin Negative (Negative); Blood Negative (Negative); Clarity Clear (Clear); Glucose Negative (Negative); Ketones Negative (Negative); Leukocyte Esterase Negative (Negative); Nitrite Negative (Negative); Urobilinogen 0.2 EU/dL (Up TO 0.2)
== END 2020-02-26 02:35 | disposition home or self-care (01) ==
PROVIDERS: Emergency Provider Student in an Organized Health Care Education/Training Program; PCP Physician Assistant Medical
DX: I88.0 Nonspecific mesenteric lymphadenitis (principal); F25.9 Schizoaffective disorder, unspecified; E11.9 Type 2 diabetes mellitus without complications; J44.9 Chronic obstructive pulmonary disease, unspecified; Z87.891 Personal history of nicotine dependence
CPT/HCPCS: 36415; 80053; 83690; 86850; 86900; 86901; 96374; 96375; 99285; 74177; 81003; 85025; 85610; 85730; J1885; J3490

== ENCOUNTER 2020-03-24 03:05 | Outpatient (CLI) | payer MEDICARE, MEDICAID, SELFPAY ==
[2020-03-24 08:56] LABS: Abs Immature Grans 0.09 k/cumm (0.0-0.09); Absolute Basophil Count 0.03 k/cumm (0.0-0.2); Absolute Eosinophil Count 0.29 k/cumm (0.0-0.7); Absolute Lymphocyte Count 1.43 k/cumm (1.2-3.4); Absolute Monocyte Count 0.37 k/cumm (0.11-0.7); Absolute Neutrophil Count 2.98 k/cumm (1.2-6.7); Basophils % 0.6; Eosinophils % 5.6; HCT 44.9 % (40.0-50.0); HGB 14.8 g/dL (13.5-17.5); Immature Grans % 1.7 %; Lymphocytes % 27.6; Mean Corpuscular Hemoglobin 30.1 pg (27.0-33.0); Mean Corpuscular Volume 91.3 fL (80-95); Mean Platelet Volume 12.1 fL (8.0-11.0); Monocytes % 7.1; Neutrophils % 57.4; Platelet Count 197 x1000/uL (130-400); RBC 4.92 m/cumm (4.50-6.00); RBC Distribution Width 14.4 % (11.8-14.1); White Blood Cell Count 5.19 k/cumm (4.4-10.8)
[2020-03-24 09:14] LABS: ALT 45 U/L (16-63); AST 21 U/L (15-37); Albumin 4.3 g/dL (3.4-5.0); Alkaline Phosphatase 82 U/L (46-116); BUN 18 mg/dL (7-18); Bilirubin, Total 0.5 mg/dL (0.2-1.0); CREATININE 1.19 mg/dL (0.70-1.30); Calcium 9.6 mg/dL (8.5-10.1); Chloride 106 mmol/L (98-107); Glucose 125 mg/dL (74-106); Potassium 3.8 mmol/L (3.5-5.1); Sodium 141 mmol/L (136-145); TSH (W/Ref FT4) 2.32 uIU/mL (0.36-3.74); Total Protein 8.1 g/dL (6.4-8.2)
[2020-03-24 09:31] LABS: Calculated LDL 30 mg/dL (<100); Cholesterol 107 mg/dL (<200); HDL Cholesterol 29 mg/dL (40-60); Triglyceride 241 mg/dL (<150)
[2020-03-24 10:52] LABS: Lithium 0.82 mmol/L (0.60-1.20)
== END 2020-03-24 03:25 ==
PROVIDERS: PCP Physician Assistant; Visit Provider Physician Assistant
DX: E78.5 Hyperlipidemia, unspecified (principal); F25.9 Schizoaffective disorder, unspecified; R60.9 Edema, unspecified; N39.41 Urge incontinence; I88.0 Nonspecific mesenteric lymphadenitis
CPT/HCPCS: 36415; 80053; 80061; 80178; 84443; 85025

== ENCOUNTER → 2020-05-26 11:00 | Outpatient (BNVA) | payer MEDICARE, MEDICAID, SELFPAY | PROVIDERS: PCP Physician Assistant; Referring Provider Physician Assistant; Visit Provider Physical Therapy Assistant | DX: Z12.11 Encounter for screening for malignant neoplasm of colon (principal); Z86.010 Personal history of colon polyps; J44.9 Chronic obstructive pulmonary disease, unspecified; E11.9 Type 2 diabetes mellitus without complications ==

== ENCOUNTER 2020-06-16 08:37 | Day surgery (SDC) | payer MEDICARE, MEDICAID, SELFPAY ==
[2020-06-16 08:52] VITALS: BP 128/73; PULSE 69; RESP 17; TEMP 36.4; O2SAT 98
[2020-06-16] MEDS: Lactated Ringers 1,000 ML 80 ML IV (09:25)
--- NOTE | 2020-06-16 09:36 | W.PM.DSUDISC ---
Discharge Plan Disposition Patient Disposition: HOME Condition: Good Discharge Details Reason For Visit: Colonoscopy Attending Provider: Betsy Landers Primary Care Provider: Rosanne Pritchett Home Meds and New Rx's Prescriptions: Continued lorazepam 2 mg tablet 2 mg PO DAILY PRNRF: 0 famotidine 20 mg tablet 20 mg PO DAILY RF: 0 Reguloid (psyllium husk) 3 gram/5.4 gram powder 1 tbs PO DAILY RF: 0 Dairy Relief 9,000 unit tablet 9,000 unit PO ONCE PRN (Reason: lactose intolerance) RF: 0 Humira 40 mg/0.8 mL syringe kit 40 mg SC Q2W RF: 0 risperidone [Risperdal] 1 mg tablet 1 mg PO TID RF: 0 lithium carbonate 300 mg capsule 300 mg PO BID RF: 0 prazosin 1 mg capsule 8 mg PO QHS RF: 0 finasteride 5 mg tablet 5 mg PO DAILY Qty: 30 RF: 2 gemfibrozil 600 mg Tablet 600 mg PO BID RF: 0 clonazepam 1 mg tablet 1 mg PO BID RF: 0 tamsulosin 0.4 MG capsule 2 tab PO DAILY RF: 0 ibuprofen 200 MG tablet 2 tab PO TID PRNRF: 0 topiramate [Topamax] 100 MG tablet 100 mg PO BID RF: 0 lorazepam 1 MG tablet 1 mg PO HS RF: 0 Discontinued polyethylene glycol 3350 17 gram/dose powder 238 g PO ONCE Qty: 238 RF: 0 bisacodyl [Dulcolax (bisacodyl)] 5 mg tablet,delayed release (DR/EC) 5 mg PO ONCE Qty: 4 RF: 0 Discharge Instructions Additional Instructions: Findings: Four polyps were removed. My office will contact you with biopsy results. Follow up: Plan for a colonoscopy in 1-3 years depending on biopsy results. Please call if you develop: fevers >101.5 Nausea or Vomiting Abdominal pain that is not transient DAY SURGERY UNIT POST COLONOSCOPY INSTRUCTIONS 1. Because there will be medication in your system for the next 24 hours, you may feel a little sleepy. Your coordination will be affected. Therefore: a. Do not drive or operate dangerous equipment for 24 hours. b. Do not drink alcohol beverages for 24 hours (not even beer). c. Plan to go home and rest for the day. 2. Generally there are no restrictions on your activity after a day or so has gone by, but you may feel a bit fatigued for a few days. 3 After you arrive home you may have a light meal and return to a normal diet as you can tolerate it without feeling sick to your stomach. 4. After surgery, you may feel pain or discomfort. This should be only transient, but if it persists please contact your doctor. 5. If there are any questions regarding the findings of your procedure, please feel free to contact your doctor. 6. If you are unable to contact your doctor with a problem, contact the hospital at [phone]. 7. Continue all your regular medications unless directed otherwise. I understand the above instructions and have no questions. Signature of Patient or Responsible Adult Escort Date/Time Name of Responsible Adult Escort Signature of Nurse Date/Time Activity:: Activity as Tolerated Diet:: As Tolerated Discharge Orders Discharge Orders: Discharge Order (Routine); Ordered 06/16/20 Ordered By: Betsy Landers DS: Diagnosis Discharge Diagnosis (1) Colon polyps: Status: Acute
--- NOTE | 2020-06-16 09:39 | W.COLOREPORT ---
Date of service: 06/16/20 Time of Service: 10:43 Colonoscopy Report Date of procedure: 06/16/20 Pre-op diagnosis general: History of tubulovillous adenoma with dysplasia Post-op diagnosis procedure note: other (Colon polyps) Procedure: Colonoscopy with hot snare polypectomy Surgeon: Betsy Landers Indications: This 54 year old man presents for surveillance colonoscopy. A tubulovillous adenoma with high grade dysplasia was removed in 2017. This was located in the sigmoid colon and was pedunculated with negative margins. No symptoms. FH unknown. Procedure Description: The patient was placed in the left La position. Propofol was titrated to sedation. Digital rectal examination revealed no abnormalities. The scope was advanced to the cecum without difficulty. The ileocecal valve and appendiceal orifice were clearly identified. The prep was good. In the ascending colon a 1cm polyp was removed with the hot snare. A 5 mm slightly more distal polyp was removed with the snare. The larger polyp could not be suctioned through the scope and was dragged out. Both polyps were sent in the same specimen container. Two clips were applied to the larger polypectomy site as a precaution. The scope was slowly withdrawn over the course of greater than 6 minutes with no other abnormalities seen in the ascending or transverse colon. A less than 1cm polyp was removed from the descending colon with the snare. No abnormalities were seen in the sigmoid colon or rectum with the exception of a tiny polyp seen on retroflexed view. This was removed with the hot snare but not retrieved for pathology. The patient tolerated the procedure well and was stable to recovery. Plan for colonoscopy in 1-3 years depending on biopsy results.
--- NOTE | 2020-06-16 10:01 | BOWEL_PTH ---
PATIENT: Carlos Collins LOC: [facility] U#:[id number] AGE/SX: 54/M ROOM: RE06/16/[address]: Betsy Landers MD : 1965 BED: DIS: 06/16/2020 SPEC #: [id number] RECD: 06/16/20 12:50 STATUS: LUIS REQ #: [id number] DERRICK: 06/16/20 10:[address]: Betsy Landers DEPT: Surgical Specimen RECD BY: Kasey Starkey ENTERED: 06/16/20 12:52 SP TYPE: Bowel OTHR DR: Rosanne Pritchett Tissues: 1 - BIOPSY BOWEL 2 - BIOPSY BOWEL Procedures: GROSS AND MICRO LEVEL 4 Comments: [id number]
[2020-06-16 11:15] VITALS: BP 115/73; PULSE 59; RESP 18; TEMP 36.1; O2SAT 95
== END 2020-06-16 11:44 | disposition home or self-care (01) ==
PROVIDERS: PCP Physician Assistant; Visit Provider Surgery
PROC: 0DJD8ZZ Inspection of Lower Intestinal Tract, Via Natural or Artificial Opening Endoscopic (ICD-10-PCS; CPT 45378; principal; 2020-06-16 09:45)
DX: Z12.11 Encounter for screening for malignant neoplasm of colon (principal); D12.2 Benign neoplasm of ascending colon; D12.4 Benign neoplasm of descending colon; Z86.010 Personal history of colon polyps; J44.9 Chronic obstructive pulmonary disease, unspecified; F25.9 Schizoaffective disorder, unspecified; G40.909 Epilepsy, unspecified, not intractable, without status epilepticus
CPT/HCPCS: 45385; 88305

== ENCOUNTER → 2020-08-29 09:58 | Outpatient (BNVA) | payer MEDICARE, MEDICAID, SELFPAY | PROVIDERS: PCP Physician Assistant; Referring Provider Physician Assistant Medical; Visit Provider Nurse Practitioner Gerontology | DX: N40.0 Benign prostatic hyperplasia without lower urinary tract symptoms (principal); R23.8 Other skin changes; J44.9 Chronic obstructive pulmonary disease, unspecified; Z87.891 Personal history of nicotine dependence | CPT/HCPCS: 81003; 99213 ==

== ENCOUNTER 2020-09-22 04:22 | Outpatient (CLI) | payer MEDICARE, MEDICAID, SELFPAY ==
[2020-09-22] MEDS: Omnipaque 350 MG/ML 100 ML BTL IJ (08:40)
[2020-09-22] MEDS: Normal Saline - Diluent 50 ML VIAL IV (08:41)
[2020-09-22] MEDS: Normal Saline Flush 10 ML SYR IVP (08:41)
--- NOTE | 2020-09-22 09:05 | DI.CT_ITS ---
EXAM: CT ABDOMEN PELVIS WO/W CLINICAL HISTORY: CHRONIC LOW BACK PAIN,M54.5,URINARY INCONTINENCE,R32,. TECHNIQUE: Imaging Protocol: Axial computed tomography images with coronal and sagittal reformatted images were created and reviewed CONTRAST MATERIAL: Intravenous: Omnipaque 100cc Oral: None COMPARISON: CT CT ABDOMEN PELVIS W from 02/26/2020 FINDINGS: VISUALIZED LUNG BASES: No nodules nor pleural effusions evident. ABDOMEN: There is no ascites. Again noted is the previously described stranding in the has central mesentery around the celiac and SMA arteries, unchanged from previous. Small mesenteric lymph nodes are again noted. LIVER: Mild liver enlargement is again noted. There are no discrete focal hepatic lesions or nor dil atation of intrahepatic ducts GALLBLADDER/BILIARY: No obvious gallbladder pathology. CBD is not dilated. PANCREAS: No evidence of pancreatic mass nor dilatation of the pancreatic duct. SPLEEN: Spleen size is slightly prominent, unchanged. Splenic and portal veins are patent. ADRENALS: There is a nodule in the right adrenal gland measuring 1.7 by 1.2 centimetres, slightly lar yaakov than previous. The opposite-left adrenal gland is unremarkable. KIDNEYS:Small 10 millimeter cyst in the inferior pole left kidney is again noted. There is a 9 jose angel meter benign cyst in the medial lower cortex of the right kidney. There is a 4 millimeter nonobstruc tive calculus at the midpole level of the right kidney again noted. No hydronephrosis.. There is a solitary ureter on each side which appear unremarkable. No obvious abnormality in the urinary bladde r. ABDOMINAL AORTA: Abdominal aorta is not enlarged and there is no wpvewkmwssrzcyh-yzeb-gupahb adenopat hy. ABDOMINAL WALL/GI: No evidence of significant anterior abdominal wall hernia. No bowel obstruction. PELVIS: GI: No evidence of appendicitis.No evidence of sigmoid diverticulitis. LYMPH NODES: There is no intrapelvic nor inguinal adenopathy. REPRODUCTIVE: Prostate gland is not enlarged. Seminal vesicles unremarkable. URINARY BLADDER: No calculi nor obvious masses evident OSSEOUS: No significant osseous lesions. IMPRESSION: 1. Compared to the prior CT scan of 02/26/2020 there is again noted a 4 millimeter nonobstructive griselda culus in the midpole of the right kidney with no other calculi evident on either side and no hydronep hrosis nor hydroureter no obvious abnormality in the urinary bladder. 2. There is a small single benign cyst in each kidney. No solid renal masses. 3. Mild mesenteric stranding is again noted in the central mesentery with a few small lymph nodes in the mesentery again noted. There is no gross lymphadenopathy. There is no ascites. 4. Mild hepatosplenomegaly is again noted. RADIATION DOSE DELIVERED: 3,160.45mGy.cm Total DLP DATA REPOSITORY: All CT scans at this facility are submitted to the National Radiology Data Registry (NRDR) Dose Index Registry (DIR) with the [employer] (A[employer]). RADIATION OPTIMIZATION: All CT scans at this facility use at least one of these dose optimization te chniques: automated exposure control; mA and/or kV adjustment per patient size (includes targeted exa ms where dose is matched to clinical indication); or iterative reconstruction.
== END 2020-09-22 04:42 ==
PROVIDERS: PCP Physician Assistant; Visit Provider Physician Assistant
DX: N20.0 Calculus of kidney (principal); N28.1 Cyst of kidney, acquired; R16.2 Hepatomegaly with splenomegaly, not elsewhere classified; R32 Unspecified urinary incontinence; G89.29 Other chronic pain; M54.5 Low back pain
CPT/HCPCS: 74178; J3490

== ENCOUNTER 2020-10-05 16:14 | Outpatient (REF) | payer MEDICARE, MEDICAID, SELFPAY ==
[2020-10-05 16:00] LABS: Abs Immature Grans 0.03 10^3/uL (0.0-0.06); Absolute Basophil Count 0.08 10^3/uL (0.0-0.2); Absolute Eosinophil Count 1.15 10^3/uL (0.0-0.7); Absolute Lymphocyte Count 1.63 10^3/uL (1.2-3.4); Absolute Monocyte Count 0.38 10^3/uL (0.1-0.8); Absolute Neutrophil Count 3.42 10^3/uL (1.2-6.7); Basophils % 1.2; Eosinophils % 17.2; HCT 41.7 % (40.0-50.0); HGB 13.6 g/dL (13.5-17.5); Immature Grans % 0.4; Lymphocytes % 24.4; MCH 29.5 pg (27.0-33.0); MCHC 32.6 % (32.0-36.0); MCV 90.5 fL (80-95); MPV 12.8 fL (8.0-11.0); Monocytes % 5.7; Neutrophils % 51.1; Nucleated RBC 0 %; Platelet Count 197 10^3/uL (130-400); RBC 4.61 10^6/uL (4.36-5.78); RDW 13.9 % (11.8-14.1); RDW-SD 45.9 fL; WBC 6.69 10^3/uL (4.4-10.8)
[2020-10-05 16:05] LABS: Lithium 0.9 mmol/l (0.6-1.2)
--- OUTSIDE RECORDS SUMMARY | 2020-10-05 16:17 | XMS_ITS ---
:1965 Author Care Team Providers Name Role Phone FRANK LEOBARDO Primary Care Provider [phone] FRANK LEOBARDO Referring Provider [phone] Allergies Code Code System Name Reaction Severity Status Onset NKDA ? Medications Name Status Start Date Stop Date ? ? Abilify 2 mg tablet Active ? Not availabl e Take 1 tablet every day by oral route. AmLactin 12 % lotion Active ? Not availab le Apply 1 application every day by topical route for 60 days. betamethasone dipropionate 0.05 % topical cream Active ? Not available APPLY A THIN LAYER TO THE AFFECTED AREA(S) BY TOPICAL ROUTE TWI CE DAILY PRN clonazepam 1 mg tablet Active ? Not avail able Take 1 tablet twice a day by oral route. ferrous sulfate 325 mg (65 mg iron) tablet Completed ? 05/04/2019 Take 1 tablet every day by oral route. fluocinonide 0.05 % topical solution Active ? Not available APPLY TO THE AFFECTED AREA(S) BY TOPICAL ROUTE 2 TIMES PER DAY PRN gemfibrozil 600 mg tablet Active ? Not av ailable Take 1 tablet twice a day by oral route. Humira Pen 40 mg/0.8 mL subcutaneous kit Active ? Not available INJECT 0.8 MILLILITER (40 MG) BY SUBCUT ANEOUS ROUTE EVERY OTHER WEEK IN THE ABDOMEN OR THIGH (ROTATE SITES) Lactaid Fast Act 9,000 unit tablet Active ? Not available Take 2 tablets by oral route. lithium carbonate 300 mg capsule Active ? Not available 1 cap in am and 2 caps in pm. lorazepam 1 mg tablet Active ? Not availa ble Take 1 tablet every day by oral route in the evening. prazosin 1 mg capsule Active ? Not availa ble Take 1 capsule every day by oral route in the evening. ranitidine 150 mg tablet Active ? Not juan ilable Take 1 tablet every day by oral route in the morning. Risperdal 1 mg tablet Active ? Not availa ble Take 1 tablet 3 times a day by oral route. risperidone 2 mg tablet Completed ? 09/20/19 20 Take 1 tablet twice a day by oral route. tamsulosin 0.4 mg capsule Active ? Not av ailable Take 1 capsule every day by oral route. topiramate 100 mg tablet Active ? Not juan ilable TAKE 1 TABLET IN THE AMTAKE TWO TABLETS AT 5PM trazodone 50 mg tablet Active ? Not avail able Take 1 tablet every day by oral route as needed. Problems Name Status Onset Date Source ? Malignant Neoplasm of Skin Active 03/18/2019 ? Hyperlipidemia Active 03/18/2019 ? Schizophrenia Active 03/18/2019 ? Impulse Control Disorder Active 03/18/2019 ? Seizure Disorder Active 03/18/2019 ? Asthma Active 03/18/2019 ? Chronic Obstructive Lung Disease Active 03/18/2019 ? Benign Prostatic Hyperplasia Active 03/18/2019 ? Psoriasis Active 03/18/2019 ? Foot Callus Active 03/18/2019 ? Disturbance in Sleep Behavior Active 03/18/2019 ? Edema Active 03/18/2019 ? Lactose Intolerance Active 03/18/2019 ? Procedures None recorded. Results Lab Results None recorded. Past Encounters 09/20/2019 Pain in Toe; Onychomycosis of Toenails John Still: [address] [place] [phone], Ph. 07/07/2019 Onychomycosis of Toenails; Pain in Toe; [place] [facility] John Still: [address] [place] [phone], Ph. 05/04/2019 On Examination - Skin Fissures Present John Still: [address] [place] [phone], Ph. Social History Tobacco Smoking Status Former Smoker Notes: 9 Vaccine List Vaccine Type Tdap 09/23/2017 Plan of Care Patient Instructions Continue with AmLactin. Apply Lac-Hydrin twice daily to aff ected areas of the feet. Continue using the Lac-Hydrin twice daily. Reminders Provider Appointments None recorded. ? ? Lab None recorded. ? ? Referral None recorded. ? ? Procedures None recorded. ? ? Surgeries None recorded. ? ? Imaging None recorded. ? ? Vitals 09/20/2019 12:30PM PODIATRY NAIL DEBRIDEMENT Height Weight BMI Blood Pressure 177.8 cm 116.12 kg 36.7 kg/m2 124/62 mm[Hg] 07/07/2019 09:15AM PODIATRY NAIL DEBRIDEMENT Height Weight BMI Blood Pressure 177.8 cm 116.12 kg 36.7 kg/m2 128/62 mm[Hg] 05/04/2019 09:00AM PODIATRY FOLLOW UP Height Weight BMI Blood Pressure 177.8 cm 116.12 kg 36.7 kg/m2 132/62 mm[Hg] 03/24/2019 09:15AM PODIATRY NEW PATIENT Height Weight BMI Blood Pressure 177.8 cm 116.12 kg 36.7 kg/m2 116/72 mm[Hg]
[2020-10-05 16:18] LABS: ALT 29 U/L (16-63); AST 14 U/L (15-37); Albumin 4.1 g/dL (3.4-5.0); Alkaline Phosphatase 57 U/L (46-116); Anion Gap 7.4 mmol/L (3-11); BUN 20 mg/dL (7-18); Bilirubin, Total 0.6 mg/dL (0.2-1.0); CO2 23.6 mmol/L (21.0-32.0); CREATININE 1.2 mg/dL (0.70-1.30); Calcium 9.3 mg/dL (8.5-10.1); Calculated LDL 52 mg/dL (<100); Chloride 108 mmol/L (98-107); Cholesterol 110 mg/dL (<200); Glucose 91 mg/dL (74-106); HDL Cholesterol 37 mg/dL (40-60); Potassium 4.1 mmol/L (3.5-5.1); Sodium 139 mmol/L (136-145); TSH (W/Ref FT4) 1.48 uIU/mL (0.36-3.74); Total Protein 6.7 g/dL (6.4-8.2); Triglyceride 109 mg/dL (<150)
== END 2020-10-05 16:34 ==
LOC: NCHCN 16:14
PROVIDERS: PCP Physician Assistant; Visit Provider Physician Assistant
DX: E78.5 Hyperlipidemia, unspecified (principal); F25.9 Schizoaffective disorder, unspecified; Z51.81 Encounter for therapeutic drug level monitoring; R73.03 Prediabetes; G21.19 Other drug induced secondary parkinsonism; J44.9 Chronic obstructive pulmonary disease, unspecified
CPT/HCPCS: 80053; 80061; 80178; 84443; 85025

== ENCOUNTER → 2020-11-29 13:47 | Outpatient (BNVA) | payer MEDICARE, MEDICAID, SELFPAY | PROVIDERS: PCP Physician Assistant; Visit Provider Psychiatry & Neurology Neurology | DX: G21.11 Neuroleptic induced parkinsonism (principal); K11.7 Disturbances of salivary secretion; K59.00 Constipation, unspecified; G40.909 Epilepsy, unspecified, not intractable, without status epilepticus; J44.9 Chronic obstructive pulmonary disease, unspecified; R73.03 Prediabetes; K21.9 Gastro-esophageal reflux disease without esophagitis | CPT/HCPCS: 99215; G2212 ==

== ENCOUNTER → 2021-02-28 12:17 | Outpatient (BNVA) | payer MEDICARE, MEDICAID, SELFPAY | PROVIDERS: PCP Physician Assistant; Referring Provider Physician Assistant; Visit Provider Psychiatry & Neurology Neurology | DX: K11.7 Disturbances of salivary secretion (principal); G21.11 Neuroleptic induced parkinsonism; K59.00 Constipation, unspecified; G40.909 Epilepsy, unspecified, not intractable, without status epilepticus | CPT/HCPCS: 99215 ==

== ENCOUNTER 2021-04-12 12:48 | Outpatient (REF) | payer MEDICARE, MEDICAID, SELFPAY ==
[2021-04-12 18:23] LABS: Lithium 0.9 mmol/l (0.6-1.2)
[2021-04-12 18:28] LABS: Hemoglobin A1C 5.5 % (<5.7)
[2021-04-12 18:29] LABS: Abs Immature Grans 0.12 10^3/uL (0.0-0.06); Absolute Basophil Count 0.09 10^3/uL (0.0-0.2); Absolute Eosinophil Count 0.64 10^3/uL (0.0-0.7); Absolute Lymphocyte Count 1.72 10^3/uL (1.2-3.4); Absolute Monocyte Count 0.53 10^3/uL (0.1-0.8); Basophils % 1.4; Eosinophils % 9.8; HGB 12.9 g/dL (13.5-17.5); Immature Grans % 1.8; Lymphocytes % 26.5; MCH 28.7 pg (27.0-33.0); MCHC 31.5 % (32.0-36.0); MCV 91.3 fL (80-95); MPV 12.9 fL (8.0-11.0); Monocytes % 8.2; Neutrophils % 52.3; Nucleated RBC 0 %; Platelet Count 196 10^3/uL (130-400); RBC 4.49 10^6/uL (4.36-5.78); RDW 13.9 % (11.8-14.1); RDW-SD 46.5 fL
[2021-04-12 18:37] LABS: ALT 26 U/L (16-63); AST 16 U/L (15-37); Albumin 4.1 g/dL (3.4-5.0); Alkaline Phosphatase 50 U/L (46-116); BUN 25 mg/dL (7-18); Bilirubin, Total 0.4 mg/dL (0.2-1.0); CREATININE 1.1 mg/dL (0.70-1.30); Chloride 110 mmol/L (98-107); Glucose 101 mg/dL (74-106); Potassium 4.4 mmol/L (3.5-5.1); Sodium 142 mmol/L (136-145); TSH (W/Ref FT4) 1.17 uIU/mL (0.36-3.74); Total Protein 6.5 g/dL (6.4-8.2)
== END 2021-04-12 12:49 | disposition home or self-care (01) ==
LOC: NCHCN 12:48
PROVIDERS: PCP Physician Assistant; Visit Provider Physician Assistant
DX: R73.03 Prediabetes (principal); F25.9 Schizoaffective disorder, unspecified; E78.5 Hyperlipidemia, unspecified; R16.0 Hepatomegaly, not elsewhere classified; Z51.81 Encounter for therapeutic drug level monitoring
CPT/HCPCS: 80053; 80178; 83036; 84443; 85025

== ENCOUNTER → 2021-05-01 13:51 | Outpatient (BNVA) | payer MEDICARE, MEDICAID, SELFPAY | PROVIDERS: PCP Physician Assistant; Referring Provider Physician Assistant; Visit Provider Surgery | DX: Z12.11 Encounter for screening for malignant neoplasm of colon (principal); Z86.010 Personal history of colon polyps ==

== ENCOUNTER 2021-05-04 01:54 | Outpatient (CLI) | payer MEDICARE, MEDICAID, SELFPAY ==
[2021-05-04 12:54] LABS: Source Nasal/Nares
[2021-05-04 19:12] LABS: COVID-19 PCR Negative (Negative)
== END 2021-05-04 01:55 | disposition home or self-care (01) ==
LOC: LBO 01:55
PROVIDERS: PCP Physician Assistant; Visit Provider Surgery
DX: Z20.822 Contact with and (suspected) exposure to COVID-19 (principal)
CPT/HCPCS: 87635

== ENCOUNTER 2021-05-07 09:50 | Day surgery (SDC) | payer MEDICARE, MEDICAID, SELFPAY ==
--- NOTE | 2021-05-07 06:57 | COLE_ITS ---
Date of service: 05/07/21 Time of Service: 12:01 Colonoscopy Report Date of procedure: 05/07/21 Pre-op diagnosis general: Hx of polyps Post-op diagnosis procedure note: same (and internal hemorrhoids) Procedure: Colonoscopy with polypectomy Surgeon: Calli Jeffrey Anesthesia Type: General:No Airway (ASA 3/ Sunil Duke CRNA) Estimated blood loss (mL): 2 Pathology: other (Ascending colon polyp) Complications: None Disposition: same day Indications: Mr. Collins is a 55-year-old gentleman with a history of tubulovillous adenoma with high-grade dysplasia in 2017 and tubular adenoma and tubulovillous adenoma in 2019. He is here today to discuss another colonoscopy. He also would like to have a hemorrhoid banding if at all possible. Risks benefits and complications were discussed with him and he wishes to proceed. We will also call his guardian and get consent from her. Risks, benefits and complications have been reviewed. Complications include but are not limited to bleeding, pain, perforation, missed small lesion/polyp, sore throat, aspiration and adverse reaction to the medications. Questions were entertained and answered to their satisfaction and they wished to proceed. No guarantees were given or implied. Colonoscopy under sedation with hemorrhoid banding Prep: Miralax/Dulcolax Procedure Start Time: 12:01 Procedure End Time: :29 Retraction Time: 21 Minutes Findings: one small sessile polyp Grade 1 internal hemorrhoids Procedure Description: After informed consent was obtained the patient was taken to the procedure room and placed in a left decubitous position. Monitors were applied and a time out was done. The patients name, date of , procedure, allergies to medications and metal in their body was reviewed. The patient was then sedated. Once sedated and comfortable a rectal exam was done. External exam was normal. Internal exam revealed a normal sphincter tone and no palpable masses. The prostate felt smooth. The scope was then introduced and retro-flexed. Grade 1 internal hemorrhoids were noted on retro-flexion. No polyps or masses were identified on retro- flexion. The scope was then advanced to the cecum without difficulty. The ileocecal vlave and appendiceal orifice were identified. The prep was adequate. The scope was then slowly retracted over 21 minutes back into the rectum. Polyps were removedwith cold forceps in the ascending colon. There was no diverticulosis noted. The scope was removed. Anoscopy was performed and 1 larger hemorrhoid was banded at the 12 o clock position. The patient was woken up and taken back to Same day surgery in stable condition. The patient tolerated the procedure well and there were no immediate complications. Follow up: The patient should follow up in 3-5 years unless they develop changes in bowel habits or other new gastrointestinal complaints.
--- NOTE | 2021-05-07 06:58 | W.PM.DSUDISC ---
Discharge Plan Disposition Patient Disposition: HOME Condition: Good Discharge Details Reason For Visit: Colonoscopy Attending Provider: Calli Jeffrey Primary Care Provider: Rosanne Pritchett Home Meds and New Rx's Prescriptions: Continued naproxen 500 mg tablet 500 mg PO BID RF: 0 risperidone [Risperdal] 2 mg tablet 2 mg PO DAILY RF: 0 lorazepam 2 mg tablet 2 mg PO DAILY PRNRF: 0 famotidine 20 mg tablet 40 mg PO DAILY RF: 0 Lactaid Fast Act 9,000 unit tablet,chewable 18,000 unit PO ONCE RF: 0 Humira 40 mg/0.8 mL syringe kit 40 mg subcut Q2W RF: 0 psyllium husk [Metamucil] 0.52 gram capsule 0.52 g PO DAILY RF: 0 ammonium lactate 12 % lotion 1 applic topical DAILY RF: 0 finasteride 5 mg tablet 5 mg PO DAILY Qty: 30 RF: 11 risperidone [Risperdal] 1 mg tablet 1 mg PO BID RF: 0 lithium carbonate 300 mg capsule 300 mg PO BID RF: 0 quetiapine 50 mg tablet 100 mg PO QHS PRNRF: 0 cocoa butter-shark liver oil Suppository 1 supp TN BID RF: 0 gemfibrozil 600 mg Tablet 600 mg PO BID RF: 0 clonazepam 1 mg tablet 1 mg PO BID RF: 0 tamsulosin 0.4 MG capsule 2 tab PO DAILY RF: 0 topiramate [Topamax] 100 mg tablet 100 mg PO BID RF: 0 lorazepam 1 mg tablet 1 mg PO DAILY RF: 0 Discharge Instructions Instructions: Hemorrhoids (DC), Rubber Band Ligation (DC) Additional Instructions: Findings: 1 polyp 1 large hemorrhoid that was banded Follow up: 3-5 years Please call if you develop: fevers >101.5 Nausea or Vomiting Abdominal pain that is not transient Rectal bleeding that is more then a tbsp A hard abdomen and inability to pass gas DAY SURGERY UNIT POST ENDOSCOPY INSTRUCTIONS Instructions for everyone who is given Anesthesia: For your safety, please do the following for the next 24 Hours: a. Do not drive or operate dangerous equipment b. Do not drink alcohol beverages or use any recreational drugs for the first 24 hours or while taking pain medications. The medications in your body may have a reaction that can be dangerous. c. Do not make any important decisions or sign any important papers 1. Generally there are no restrictions on your activity after a day or so has gone by, but you may feel a bit fatigued for a few days. 2. After you arrive home you may have a light meal and return to a normal diet as you can tolerate it without feeling sick to your stomach. 3. After surgery, you may feel pain or discomfort. This should be only transient, but if it persists please contact your doctor. 4. If there are any questions regarding the findings of your procedure, please feel free to contact your doctor. 6. If you are unable to contact your doctor with a problem, contact the hospital at [phone]. 7. Continue all your regular medications unless directed otherwise. I understand the above instructions and have no questions. Signature of Patient or Responsible Adult Escort Date/Time Name of Responsible Adult Escort Signature of Nurse Date/Time Activity:: Activity as Tolerated Diet:: As Tolerated Discharge Orders Discharge Orders: Discharge Order (Routine); Ordered 05/07/21 Ordered By: Calli Jeffrey
[2021-05-07 10:19] VITALS: BP 133/84; PULSE 56; RESP 16; TEMP 36.3; O2SAT 98
[2021-05-07] MEDS: Lactated Ringers 1,000 ML 80 ML IV (10:33)
--- NOTE | 2021-05-07 11:14 | W.ANESPRE ---
General Info Date of Service Date Performed: 05/07/21 Height: 5 ft 7.5 in Weight: 105.6 kg Body Mass Index (BMI): 35.9 Surgical Procedure: Operation Date: 05/07/21 11:50 Proposed Procedures Side Surgeon p Colonoscopy with Hemorrhoid banding Calli Jeffrey MD Meds Allergies and Home Medications Allergies Allergy/AdvReac Type Severity Reaction Status Date / Time lactose Allergy Verified 05/07/21 10:12 Home Medication Medication Instructions Recorded tamsulosin 2 tab PO DAILY 11/06/16 gemfibrozil 600 mg PO BID 06/22/18 clonazepam 1 mg tablet 1 mg PO BID tab 02/21/20 lorazepam 2 mg tablet 2 mg PO DAILY PRN 02/21/20 adalimumab 40 mg/0.8 mL 40 mg SUBCUT Q2W 08/22/20 subcutaneous syringe kit ammonium lactate 12 % lotion 1 applic TOPICAL DAILY 08/22/20 lactase 9,000 unit chewable tablet 18,000 unit PO ONCE tab 08/22/20 psyllium husk 0.52 gram capsule 0.52 g PO DAILY 08/22/20 finasteride 5 mg tablet 5 mg PO DAILY #30 tab 11/22/20 naproxen 500 mg tablet 500 mg PO BID 11/29/20 risperidone 1 mg tablet 1 mg PO BID tab 11/29/20 risperidone 2 mg tablet 2 mg PO DAILY 11/29/20 topiramate 100 mg tablet 100 mg PO BID 11/29/20 famotidine 20 mg tablet 40 mg PO DAILY tab 02/28/21 lithium carbonate 300 mg capsule 300 mg PO BID 02/28/21 lorazepam 1 mg tablet 1 mg PO DAILY tab 02/28/21 quetiapine 50 mg tablet 100 mg PO QHS PRN tab 02/28/21 cocoa butter-shark liver oil 1 supp DE BID 04/24/21 rectal suppository Current Visit Medications: Current Medications Generic Name Dose Route Start Last Admin Trade Name Freq PRN Reason Stop Dose Admin Hyoscyamine Sulfate 0.125 mg 05/07/21 06:59 Hyoscyamine 0.125 Mg Sl/Oral/Chew SL DIRECTED PRN Ringer's Solution 1,000 mls @ 80 mls/hr 05/07/21 06:00 05/07/21 10:33 IV 06/03/21 23:59 80 mls/hr INFUSION CRUZ Administration IV Miscellaneous Supplies 1 each 05/07/21 06:00 Iv Access IV 06/03/21 23:59 DIRECTED CRUZ Ondansetron HCl 4 mg 05/07/21 06:59 Ondansetron 4 Mg/2 Ml Vial IVP Q4H PRN PRN Nausea / Vomiting Sodium Chloride 0 ml 05/07/21 06:00 Normal Saline Flush 10 Ml Syr IV 06/03/21 23:59 PRN PRN Sodium Chloride 0 ml 05/07/21 06:00 Normal Saline 10 Ml Vial IJ 06/03/21 23:59 DIRECTED PRN Sterile Water 0 ml 05/07/21 06:00 Water,Injection,Sterile 10 Ml Vial IJ 06/03/21 23:59 DIRECTED PRN PFSH Active Problems Active Problems: Problem Status Onset Code Colon cancer screening Z12.11 Abscess L02.91 Colon polyps K63.5 Tubular adenoma of colon D12.6 Tubulovillous adenoma of colon D12.6 Drooling K11.7 Neuroleptic-induced parkinsonism G21.11 Constipation K59.00 Edema R60.9 Hemorrhoids K64.9 Chronic lower back pain M54.5, G89.29 Seizures R56.9 Anemia D64.9 Epilepsy G40.909 BPH (benign prostatic hyperplasia) N40.0 Medical History Medical History Anemia Asthma BPH (benign prostatic hyperplasia) Chronic diarrhea Chronic lower back pain COPD (chronic obstructive pulmonary disease) Diabetes mellitus type 2 in obese Reports prediabetic now no medications/does not take blood sugars. Drug-induced Parkinsonism Epilepsy Foot callus Hemorrhoids History of splenomegaly Hyperlipidemia Impulse disorder Per caregiver: Can be quick to say or do things, then be sorry about it after, a lot of it is taking things from people then being caught. As long as caregiver is with him he is fine Lactose intolerance Parkinsonism Psoriasis Schizoaffective disorder Seizures per provider states its been a very very long time since he's had one, at least +4 years Skin cancer Sleep disturbance Tubulovillous adenoma (~11/2016) 2016: with focal high grade dysplasia Urge incontinence Urinary incontinence Surgical History Surgical History Colonoscopy - MAC (11/08/16) H/O pilonidal cyst Hx of colonoscopy S/P skin cancer resection Tobacco Smoking/Tobacco Use Status: Former Tobacco Use Alcohol Alcohol Intake: never Substance Use Substance use: Never Substance use type: does not use Vital Signs and Lab Results Vital Signs Most Recent Vital Signs in EMR: Most Recent Vital Signs Temp Pulse Resp BP Pulse Ox 36.3 C L 56 L 16 133/84 98 05/07/21 10:19 05/07/21 10:19 05/07/21 10:19 05/07/21 10:19 05/07/21 10:19 Lab Results Blood Type / Crossmatch: No Data to Display Complete Blood Count: White Blood Count 6.50 10^3/uL (4.4-10.8) 04/12/21 11:45 04/12/21 Red Blood Count 4.49 10^6/uL (4.36-5.78) 04/12/21 11:45 04/12/21 Hemoglobin 12.9 g/dL (13.5-17.5) L 04/12/21 11:45 04/12/21 Hematocrit 41.0 % (40.0-50.0) 04/12/21 11:45 04/12/21 Platelet Count 196 10^3/uL (130-400) 04/12/21 11:45 04/12/21 Complete Metabolic Panel: Sodium Level 142 mmol/L (136-145) 04/12/21 11:45 04/12/21 Potassium Level 4.4 mmol/L (3.5-5.1) 04/12/21 11:45 04/12/21 Chloride Level 110 mmol/L (98-107) H 04/12/21 11:45 04/12/21 Carbon Dioxide Level 23.0 mmol/L (21.0-32.0) 04/12/21 11:45 04/12/21 Blood Urea Nitrogen 25 mg/dL (7-18) H 04/12/21 11:45 04/12/21 Creatinine 1.1 mg/dL (0.70-1.30) 04/12/21 11:45 04/12/21 Estimated GFR/1.73 m2 >= 60.00 (mL/min/1.73m2) 04/12/21 11:45 04/12/21 Calcium Level 9.0 mg/dL (8.5-10.1) 04/12/21 11:45 04/12/21 Albumin 4.1 g/dL (3.4-5.0) 04/12/21 11:45 04/12/21 Glucose Level 101 mg/dL (74-106) 04/12/21 11:45 04/12/21 Hemoglobin A1c 5.5 % (<5.7) 04/12/21 11:45 04/12/21 Liver Function Panel: Alanine Aminotransferase (ALT/SGPT) 26 U/L (16-63) 04/12/21 11:45 04/12/21 Aspartate Amino Transf (AST/SGOT) 16 U/L (15-37) 04/12/21 11:45 04/12/21 Coagulation Panel: No Data to Display Cardiac Panel: No Data to Display Arterial Blood Gas: No Data to Display Venous Blood Gas: No Data to Display Pancreas Panel: No Data to Display Thyroid Panel: Thyroid Stimulating Hormone (TSH) 1.17 uIU/mL (0.36-3.74) 04/12/21 11:45 04/12/21 Infectious Disease: Coronavirus (COVID-19)(PCR) Negative (Negative) 05/04/21 10:34 05/04/21 Coronavirus 2019 Source Nasal/Nares 05/04/21 10:34 05/04/21 Blood Cultures: No Data to Display Toxicology Panel: No Data to Display Imaging and Studies Imaging and Studies Echocardiogram Summary: Date of study: 09/09/2018 Transthoracic Echocardiography Summary: 1. Left ventricle: The cavity size was normal. Wall thickness was normal. Systolic function was normal. The estimated ejection fraction was 55-60%. Wall motion was normal; there were no regional wall motion abnormalities. Diastolic parameters were normal. 2. Right ventricle: The cavity size was normal. Wall thickness was normal. Systolic function was normal. Anesthesia Assessment and Plan Anesthesia History Personal History: No History of Anesthesia Complications Family History: No Family History of Anesthesia Complications Exercise Tolerance Exercise Tolerance: Metabolic Equivalents>4 Pertinent Negatives Pertinent Negatives: No Symptoms of GERD Cardiac & Pulmonary Exam Cardiac Exam: Normal S1/S2 Heart Sounds Pulmonary Exam: Clear Bilateral Breath Sounds Airway Exam Known Difficult Airway: No Mallampati Class: 3 Mouth Opening: Normal (> 3cm) Thyromental Distance: Greater than 3 cm Neck Range of Motion: Full ROM Neck Circumference: Normal Teeth Condition: Normal Dentition ASA Classification ASA Score: ASA 3 Emergency Case?: No NPO Status NPO Status: NPO Clears >2 hours, Solids >8 hours Anesthesia Plan Resuscitation Status: Full Code Anesthesia Technique: General Anesthesia Airway Planned: Natural Airway Monitors Used: Standard Monitors
[2021-05-07 11:29] VITALS: BMI 35.9
--- NOTE | 2021-05-07 12:15 | BOWEL_PTH ---
PATIENT: Carlos Collins LOC: [facility] U#:[id number] AGE/SX: 55/M ROOM: RE05/07/[address]: Calli Jeffrey MD : 1965 BED: DIS: 05/07/2021 SPEC #: [id number] RECD: 05/07/21 18:16 STATUS: LUIS REQ #: [id number] DERRICK: 05/07/21 12:[address]: Calli Jeffrey DEPT: Surgical Specimen RECD BY: Annie Park ENTERED: 05/07/21 18:17 SP TYPE: Bowel OTHR DR: Rosanne Pritchett Tissues: 1 - BIOPSY BOWEL Procedures: GROSS AND MICRO LEVEL 4 Comments: [id number]
[2021-05-07 12:25] VITALS: BP 100/54; PULSE 65; RESP 16; TEMP 36.1; O2SAT 94
[2021-05-07 13:10] VITALS: BP 130/86; PULSE 69; RESP 18; TEMP 36; O2SAT 98
--- NOTE | 2021-05-07 13:15 | W.ANESPOSTOP ---
Postoperative Evaluation Date, Time and Location Date Performed: 05/07/21 Time Performed: 13:15 Patient Location: Day Surgery Unit Vital Signs Most Recent Imported Vital Signs: Most Recent Vital Signs Temp Pulse Resp BP Pulse Ox 36.1 C L 65 16 100/54 L 94 05/07/21 12:25 05/07/21 12:25 05/07/21 12:25 05/07/21 12:25 05/07/21 12:25 Pain Score Most Recent Pain Score: Most Recent Pain Score Pain Level 0 05/07/21 12:25 Assessment Mental Status: Awake (Alert & Oriented to Patient Baseline) Airway and Respiratory Function: Patent airway with normal (patient baseline) respiratory exam Cardiovascular Function: Hemodynamically Stable Hydration Status: Adequately Hydrated Nausea & Vomiting: No Nausea or Vomiting Pain: Pt. Denies Any Pain Peripheral Nerve Block: Patient did not receive a nerve block
== END 2021-05-07 09:51 | disposition home or self-care (01) ==
LOC: SUR 09:51
PROVIDERS: PCP Physician Assistant; Visit Provider Surgery
PROC: 0DJD8ZZ Inspection of Lower Intestinal Tract, Via Natural or Artificial Opening Endoscopic (ICD-10-PCS; CPT 45378; principal; 2021-05-07 11:45)
DX: Z12.11 Encounter for screening for malignant neoplasm of colon (principal); K63.5 Polyp of colon; K64.0 First degree hemorrhoids; Z86.010 Personal history of colon polyps; J44.9 Chronic obstructive pulmonary disease, unspecified; E11.9 Type 2 diabetes mellitus without complications; G20 Parkinson's disease
CPT/HCPCS: 45380; 45398; 88305

== ENCOUNTER → 2021-05-30 12:59 | Outpatient (BNVA) | payer MEDICARE, MEDICAID, SELFPAY | PROVIDERS: PCP Physician Assistant; Visit Provider Psychiatry & Neurology Neurology | DX: K11.7 Disturbances of salivary secretion (principal); G21.11 Neuroleptic induced parkinsonism; K59.00 Constipation, unspecified; G40.909 Epilepsy, unspecified, not intractable, without status epilepticus | CPT/HCPCS: 99213 ==

== ENCOUNTER → 2021-07-31 10:25 | Outpatient (BNVA) | payer MEDICARE, MEDICAID, SELFPAY | PROVIDERS: PCP Physician Assistant; Referring Provider Physician Assistant; Visit Provider Surgery | DX: K59.00 Constipation, unspecified (principal); K64.9 Unspecified hemorrhoids | CPT/HCPCS: 99212; 99213 ==

== ENCOUNTER 2021-08-21 02:57 | Outpatient (CLI) | payer MEDICARE, MEDICAID, SELFPAY ==
[2021-08-21 08:12] LABS: Abs Immature Grans 0.12 10^3/uL (0.0-0.06); Absolute Basophil Count 0.06 10^3/uL (0.0-0.2); Absolute Eosinophil Count 0.56 10^3/uL (0.0-0.7); Absolute Lymphocyte Count 1.92 10^3/uL (1.2-3.4); Absolute Monocyte Count 0.53 10^3/uL (0.1-0.8); Absolute Neutrophil Count 3.44 10^3/uL (1.2-6.7); Basophils % 0.9; Eosinophils % 8.4; HCT 39.1 % (40.0-50.0); HGB 11.7 g/dL (13.5-17.5); Immature Grans % 1.8; MCH 26.7 pg (27.0-33.0); MCHC 29.9 % (32.0-36.0); MCV 89.1 fL (80-95); MPV 11.5 fL (8.0-11.0); Neutrophils % 51.9; Nucleated RBC 0 %; Platelet Count 214 10^3/uL (130-400); RBC 4.39 10^6/uL (4.36-5.78); RDW 13.9 % (11.8-14.1); RDW-SD 44.8 fL; WBC 6.63 10^3/uL (4.4-10.8)
[2021-08-21 08:41] LABS: Hemoglobin A1C 5.7 % (<5.7)
[2021-08-21 09:01] LABS: ALT 34 U/L (16-63); AST 17 U/L (15-37); Albumin 4.2 g/dL (3.4-5.0); Alkaline Phosphatase 51 U/L (46-116); BUN 21 mg/dL (7-18); Bilirubin, Total 0.4 mg/dL (0.2-1.0); CREATININE 1.1 mg/dL (0.70-1.30); Calcium 9.3 mg/dL (8.5-10.1); Calculated LDL 56 mg/dL (<100); Chloride 109 mmol/L (98-107); Cholesterol 130 mg/dL (<200); Glucose 110 mg/dL (74-106); HDL Cholesterol 36 mg/dL (40-60); Potassium 4.1 mmol/L (3.5-5.1); Sodium 141 mmol/L (136-145); TSH 2.72 uIU/mL (0.36-3.74); Total Protein 6.8 g/dL (6.4-8.2); Triglyceride 194 mg/dL (<150)
== END 2021-08-21 02:58 | disposition home or self-care (01) ==
LOC: LBO 02:57
PROVIDERS: PCP Physician Assistant; Visit Provider Nurse Practitioner Psychiatric/Mental Health
DX: Z79.899 Other long term (current) drug therapy (principal); F70 Mild intellectual disabilities
CPT/HCPCS: 36415; 80053; 80061; 80178; 83036; 84443; 85025

== ENCOUNTER 2021-10-03 14:48 | Outpatient (REF) | payer MEDICARE, MEDICAID, SELFPAY ==
[2021-10-05 11:33] LABS: COVID-19 RT-PCR UVMMC Result Negative (Negative)
== END 2021-10-03 14:49 | disposition home or self-care (01) ==
LOC: NCHCN 14:48
PROVIDERS: PCP Physician Assistant; Visit Provider Physician Assistant
DX: Z20.822 Contact with and (suspected) exposure to COVID-19 (principal)
CPT/HCPCS: U0003

== ENCOUNTER 2021-10-11 14:10 | Outpatient (REF) | payer MEDICARE, MEDICAID, SELFPAY ==
[2021-10-13 12:36] LABS: COVID-19 RT-PCR UVMMC Result Negative (Negative)
== END 2021-10-11 14:11 | disposition home or self-care (01) ==
LOC: NCHCN 14:10
PROVIDERS: PCP Physician Assistant; Visit Provider Physician Assistant
DX: Z20.822 Contact with and (suspected) exposure to COVID-19 (principal)
CPT/HCPCS: U0003

== ENCOUNTER → 2021-10-16 10:53 | Outpatient (BNVA) | payer MEDICARE, MEDICAID, SELFPAY | PROVIDERS: PCP Physician Assistant; Visit Provider Psychiatry & Neurology Neurology | DX: G20 Parkinson's disease (principal); K59.00 Constipation, unspecified; G40.909 Epilepsy, unspecified, not intractable, without status epilepticus | CPT/HCPCS: 99213 ==

== ENCOUNTER → 2021-11-22 08:24 | Outpatient (BNVA) | payer MEDICARE, MEDICAID, SELFPAY | PROVIDERS: PCP Physician Assistant; Referring Provider Physician Assistant; Visit Provider Nurse Practitioner Gerontology | DX: N40.0 Benign prostatic hyperplasia without lower urinary tract symptoms (principal); R23.8 Other skin changes | CPT/HCPCS: 99214 ==

== ENCOUNTER → 2022-02-12 10:40 | Outpatient (BNVA) | payer MEDICARE, MEDICAID, SELFPAY | PROVIDERS: PCP Physician Assistant; Referring Provider Physician Assistant; Visit Provider Psychiatry & Neurology Neurology | DX: G21.11 Neuroleptic induced parkinsonism (principal); K59.00 Constipation, unspecified; G40.909 Epilepsy, unspecified, not intractable, without status epilepticus | CPT/HCPCS: 99214 ==

== ENCOUNTER → 2022-04-08 13:48 | Outpatient (BNVA) | payer MEDICARE, MEDICAID, SELFPAY | PROVIDERS: PCP Physician Assistant; Referring Provider Physician Assistant; Visit Provider Psychiatry & Neurology Neurology | DX: G21.11 Neuroleptic induced parkinsonism (principal); K59.00 Constipation, unspecified; G40.909 Epilepsy, unspecified, not intractable, without status epilepticus | CPT/HCPCS: 99214 ==

== ENCOUNTER 2022-04-09 18:17 | Outpatient (REF) | payer MEDICARE, MEDICAID, SELFPAY ==
[2022-04-09 19:03] LABS: Abs Immature Grans 0.09 10^3/uL (0.0-0.06); Absolute Basophil Count 0.05 10^3/uL (0.0-0.2); Absolute Eosinophil Count 0.52 10^3/uL (0.0-0.7); Absolute Lymphocyte Count 1.61 10^3/uL (1.2-3.4); Absolute Monocyte Count 0.58 10^3/uL (0.1-0.8); Absolute Neutrophil Count 4.49 10^3/uL (1.2-6.7); Basophils % 0.7; Eosinophils % 7.1; HCT 34.3 % (40.0-50.0); HGB 9.8 g/dL (13.5-17.5); Immature Grans % 1.2; Lymphocytes % 21.9; MCH 22.2 pg (27.0-33.0); MCHC 28.6 % (32.0-36.0); MCV 78 fL (80-95); Monocytes % 7.9; Neutrophils % 61.2; Platelet Count 217 10^3/uL (130-400); RBC 4.42 10^6/uL (4.36-5.78); RDW 18.2 % (11.8-14.1); RDW-SD 50.7 fL; WBC 7.34 10^3/uL (4.4-10.8)
[2022-04-09 19:40] LABS: ALT 16 U/L (16-63); AST 18 U/L (15-37); Albumin 3.9 g/dL (3.4-5.0); Alkaline Phosphatase 50 U/L (46-116); Anion Gap 6.7 mmol/L (3-11); BUN 24 mg/dL (7-18); Bilirubin, Total 0.3 mg/dL (0.2-1.0); CO2 23.3 mmol/L (21.0-32.0); CREATININE 1.2 mg/dL (0.70-1.30); Calcium 9.3 mg/dL (8.5-10.1); Chloride 106 mmol/L (98-107); Glucose 136 mg/dL (74-106); Potassium 4.1 mmol/L (3.5-5.1); Sodium 136 mmol/L (136-145)
[2022-04-09 19:49] LABS: Hemoglobin A1C 6.2 % (<5.7)
== END 2022-04-09 18:18 | disposition home or self-care (01) ==
LOC: NCHCN 18:17
PROVIDERS: PCP Physician Assistant; Visit Provider Physician Assistant
DX: R73.03 Prediabetes (principal); E78.5 Hyperlipidemia, unspecified; G21.19 Other drug induced secondary parkinsonism
CPT/HCPCS: 80053; 83036; 85025

== ENCOUNTER 2022-04-11 15:05 | Outpatient (REF) | payer MEDICARE, MEDICAID, SELFPAY ==
[2022-04-11 19:42] LABS: Iron 39 ug/dL (65-175); Total Iron Binding Capacity 475 ug/dL (250-450); Transferrin Sat 8 % (20-55)
[2022-04-11 19:54] LABS: Ferritin 7 ng/mL (26-388); TSH 1.85 uIU/mL (0.36-3.74)
== END 2022-04-11 15:06 | disposition home or self-care (01) ==
LOC: NCHCN 15:05
PROVIDERS: PCP Physician Assistant; Visit Provider Physician Assistant
DX: D64.9 Anemia, unspecified (principal); R56.9 Unspecified convulsions; Z51.81 Encounter for therapeutic drug level monitoring
CPT/HCPCS: 82728; 83540; 83550; 84443

== ENCOUNTER → 2022-05-01 10:27 | Outpatient (BNVA) | payer MEDICARE, MEDICAID, SELFPAY | PROVIDERS: PCP Physician Assistant; Referring Provider Physician Assistant; Visit Provider Surgery | DX: Z86.010 Personal history of colon polyps (principal); D64.9 Anemia, unspecified | CPT/HCPCS: 99213 ==

== ENCOUNTER 2022-05-08 02:27 | Outpatient (CLI) | payer MEDICARE, MEDICAID, SELFPAY ==
[2022-05-08 11:49] LABS: Source Nasal/Nares
[2022-05-08 14:20] LABS: COVID-19 PCR Negative (Negative)
== END 2022-05-08 02:28 | disposition home or self-care (01) ==
LOC: LBO 02:28
PROVIDERS: PCP Physician Assistant; Visit Provider Surgery
DX: Z01.818 Encounter for other preprocedural examination (principal); Z20.822 Contact with and (suspected) exposure to COVID-19
CPT/HCPCS: 87635

== ENCOUNTER 2022-05-10 10:19 | Day surgery (SDC) | payer MEDICARE, MEDICAID, SELFPAY ==
--- NOTE | 2022-05-09 14:31 | W.ANESPRE ---
General Info Date of Service Date Performed: 05/09/22 Height: 5 ft 7.5 in Weight: 113.398 kg Body Mass Index (BMI): 38.5 Surgical Procedure: Operation Date: 05/10/22 12:05 Proposed Procedure Side Surgeon p Gastroscopy Wai Gonzalez MD Meds Allergies and Home Medications Allergies Allergy/AdvReac Type Severity Reaction Status Date / Time lactose Allergy Verified 05/10/22 11:09 Home Medication Medication Instructions Recorded clonazepam 1 mg tablet 1 mg PO BID 02/21/20 adalimumab 40 mg/0.8 mL 40 mg subcut Q2W 08/22/20 subcutaneous syringe kit (Humira) ammonium lactate 12 % lotion 1 applic topical DAILY 08/22/20 psyllium husk 0.52 gram capsule 0.52 g PO DAILY 08/22/20 (Metamucil) naproxen 500 mg tablet 500 mg PO BID 11/29/20 risperidone 1 mg tablet (Risperdal) 1 mg PO BID 11/29/20 risperidone 2 mg tablet (Risperdal) 2 mg PO DAILY 11/29/20 topiramate 100 mg tablet (Topamax) 100 mg PO BID 11/29/20 famotidine 20 mg tablet 40 mg PO HS 02/28/21 lithium carbonate 300 mg capsule 300 mg PO BID 02/28/21 lorazepam 1 mg tablet 1 mg PO DAILY 02/28/21 loratadine 10 mg tablet (Allergy 10 mg PO DAILY 05/30/21 Relief (loratadine)) finasteride 5 mg tablet 5 mg PO DAILY #30 tabs 10/15/21 polyethylene glycol 3350 17 17 g PO .QOD 10/16/21 gram/dose oral powder tamsulosin 0.4 mg capsule 0.8 mg PO DAILY #60 caps 11/22/21 docusate sodium 100 mg capsule 100 mg PO BID #60 caps 02/12/22 lactase 9,000 unit chewable tablet 18,000 unit PO PRN 02/12/22 (Lactaid Fast Act) lorazepam 2 mg tablet 2 mg PO BID PRN agitation 02/12/22 carbidopa 25 mg-levodopa 100 mg 1 tab PO TID #270 tabs 04/08/22 tablet (Sinemet) gemfibrozil 600 mg tablet 600 mg PO DAILY 04/26/22 omeprazole 40 mg capsule,delayed 40 mg PO DAILY 04/26/22 release quetiapine 25 mg tablet 25 mg PO QHS 04/26/22 quetiapine 50 mg tablet 50 mg PO QHS 04/26/22 Current Visit Medications: Current Medications Generic Name Dose Route Start Last Admin Trade Name Graciela PRN Reason Stop Dose Admin Ringer's Solution 1,000 mls @ 80 mls/hr 05/10/22 06:00 IV 05/10/22 23:59 INFUSION CRUZ IV Miscellaneous Supplies 1 each 05/10/22 06:00 Iv Access IV 05/10/22 23:59 DIRECTED CRUZ Sodium Chloride 0 ml 05/10/22 06:00 Normal Saline Flush 10 Ml Syr IV 05/10/22 23:59 PRN PRN Sodium Chloride 0 ml 05/10/22 06:00 Normal Saline 10 Ml Vial IJ 05/10/22 23:59 DIRECTED PRN Sterile Water 0 ml 05/10/22 06:00 Water,Injection,Sterile 10 Ml Vial IJ 05/10/22 23:59 DIRECTED PRN PFSH Active Problems Active Problems: Problem Status Onset Code Parkinsonism G20 Abscess L02.91 Colon polyps K63.5 Tubulovillous adenoma of colon D12.6 Drooling K11.7 Constipation K59.00 Edema R60.9 Hemorrhoids K64.9 Anemia D64.9 Epilepsy G40.909 Medical History Medical History Asthma BPH (benign prostatic hyperplasia) Chronic diarrhea Chronic lower back pain COPD (chronic obstructive pulmonary disease) Diabetes mellitus type 2 in obese Reports prediabetic now no medications/does not take blood sugars. Drug-induced Parkinsonism Foot callus History of splenomegaly Hyperlipidemia Impulse disorder Per caregiver: Can be quick to say or do things, then be sorry about it after, a lot of it is taking things from people then being caught. 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 Urge incontinence Urinary incontinence Surgical History Surgical History Colonoscopy - MAC (11/08/16) H/O pilonidal cyst Hx of colonoscopy S/P skin cancer resection Tobacco Smoking/Tobacco Use Status: Former Tobacco Use Alcohol Alcohol Intake: never Substance Use Substance use: Never Substance use type: does not use Vital Signs and Lab Results Lab Results Blood Type / Crossmatch: No Data to Display Complete Blood Count: No Data to Display Complete Metabolic Panel: No Data to Display Liver Function Panel: No Data to Display Coagulation Panel: No Data to Display Cardiac Panel: No Data to Display Arterial Blood Gas: No Data to Display Venous Blood Gas: No Data to Display Pancreas Panel: No Data to Display Thyroid Panel: Thyroid Stimulating Hormone (TSH) 1.85 uIU/mL (0.36-3.74) 04/11/22 10:35 Infectious Disease: Coronavirus (COVID-19)(PCR) Negative (Negative) 05/08/22 11:00 Coronavirus 2019 Source Nasal/Nares 05/08/22 11:00 Blood Cultures: No Data to Display Toxicology Panel: No Data to Display Imaging and Studies Imaging and Studies Study information below may be from another EMR and interpreted by another provider. Please see original notes in EMR for more complete details. Echocardiogram Summary: Date of study: 09/09/2018 Transthoracic Echocardiography Summary: 1. Left ventricle: The cavity size was normal. Wall thickness was normal. Systolic function was normal. The estimated ejection fraction was 55-60%. Wall motion was normal; there were no regional wall motion abnormalities. Diastolic parameters were normal. 2. Right ventricle: The cavity size was normal. Wall thickness was normal. Systolic function was normal. Anesthesia Assessment and Plan Anesthesia History Personal History: No History of Anesthesia Complications Family History: Family History Unknown Exercise Tolerance Exercise Tolerance: Metabolic Equivalents>4 Pertinent Negatives Pertinent Negatives: No Symptoms of GERD and No Major Pulmonary Symptoms or Complaints Cardiac & Pulmonary Exam Cardiac Exam: Normal S1/S2 Heart Sounds Pulmonary Exam: Clear Bilateral Breath Sounds Implantable Cardiac Device Does patient have a Pacemaker or an ICD?: No Airway Exam Known Difficult Airway: No Mallampati Class: 3 Mouth Opening: Normal (> 3cm) Thyromental Distance: Greater than 3 cm Neck Range of Motion: Full ROM Neck Circumference: Normal Teeth Condition: Normal Dentition ASA Classification ASA Score: ASA 3 Emergency Case?: No NPO Status NPO Status: NPO Clears >2 hours, Solids >8 hours Anesthesia Plan Resuscitation Status: Full Code Anesthesia Technique: General Anesthesia Airway Planned: Natural Airway Monitors Used: Standard Monitors
[2022-05-10 11:24] VITALS: BP 130/77; PULSE 79; RESP 16; TEMP 36.7; O2SAT 95
[2022-05-10] MEDS: Lactated Ringers 1,000 ML 80 ML IV (11:35)
--- NOTE | 2022-05-10 11:46 | W.PM.DSUDISC ---
Discharge Plan Disposition Patient Disposition: HOME Condition: Good Discharge Details Reason For Visit: EGD Attending Provider: Wai Gonzalez Primary Care Provider: Rosanne Pritchett Home Meds and New Rx's Prescriptions: Continued naproxen 500 mg tablet 500 mg PO BID risperidone [Risperdal] 2 mg tablet 2 mg PO DAILY loratadine [Allergy Relief (loratadine)] 10 mg tablet 10 mg PO DAILY docusate sodium 100 mg capsule 100 mg PO BID Qty: 60 5RF carbidopa-levodopa [Sinemet] 25-100 mg tablet 1 tab PO TID Qty: 270 3RF Rx Instructions: Take at 6am, 11am, and 4pm famotidine 20 mg tablet 40 mg PO HS lorazepam 2 mg tablet 2 mg PO BID PRN (Reason: agitation) Label Comments: agitation Rx Instructions: Takes 2mg daily at 1300 and another 2mg daily prn polyethylene glycol 3350 17 gram/dose powder 17 g PO .QOD tamsulosin 0.4 mg capsule 0.8 mg PO DAILY Qty: 60 11RF Humira 40 mg/0.8 mL syringe kit 40 mg subcut Q2W psyllium husk [Metamucil] 0.52 gram capsule 0.52 g PO DAILY ammonium lactate 12 % lotion 1 applic topical DAILY risperidone [Risperdal] 1 mg tablet 1 mg PO BID lithium carbonate 300 mg capsule 300 mg PO BID Rx Instructions: Pt. takes 300 mg am and 600 mg HS finasteride 5 mg tablet 5 mg PO DAILY Qty: 30 11RF Lactaid Fast Act 9,000 unit tablet,chewable 18,000 unit PO PRN Rx Instructions: administer with meals and/or snacks quetiapine 25 mg tablet 25 mg PO QHS quetiapine 50 mg tablet 50 mg PO QHS gemfibrozil 600 mg tablet 600 mg PO DAILY omeprazole 40 mg capsule,delayed release(DR/EC) 40 mg PO DAILY clonazepam 1 mg tablet 1 mg PO BID topiramate [Topamax] 100 mg tablet 100 mg PO BID Label Comments: 100 mg in am and 200 mg at 1700 lorazepam 1 mg tablet 1 mg PO DAILY Rx Instructions: Takes at 2 pm daily. Discharge Instructions Instructions: Diet for Stomach Ulcers and Gastritis (GEN), Upper Endoscopy (DC) Additional Instructions: 1. If tolerated, consume a soft, low fiber diet for 1-2 days. [address] not drive, drink alcohol, operate machinery, make critical decisions, or do activities that require coordination or balance for 24 hours. 3. You may experience a sore throat for 24 to 48 hours. You may use throat lozenges or gargle with warm salt water to relieve the discomfort. 4. Because air was put into your stomach during the procedure, you may experience some belching. 5. Go directly to the emergency room if you notice any of the following: Develop chills (warm to touch), or if you have a thermometer and your temperature is above 101 Difficulty breathing or difficultly swallowing Persistent vomiting Severe abdominal pain, other than gas cramps Severe chest pain Black, tarry stools Any bleeding ? exceeding one tablespoon 6. Call your physician if the site where your intravenous was started becomes red, swollen, painful, and warm to touch. 7. Your physician has reviewed your pre-procedure medications. Please continue to take those medications as previously ordered. You will be given specific information/education regarding any changes to your medications before leaving. Referrals: Rosanne Pritchett [Primary Care Provider] - Activity:: Activity as Tolerated Diet:: As Tolerated Discharge Orders Discharge Orders: Discharge Order (Routine); Ordered 05/10/22 Ordered By: Wai Gonzalez DS: Diagnosis Discharge Diagnosis (1) Gastric antral vascular ectasia: Status: Acute Asessment and Plan: My office will contact you regarding results of the biopsies
--- NOTE | 2022-05-10 11:48 | W.PM.ENDDOP ---
Date of service: 05/10/22 Time of Service: 13:55 Endoscopy Report DATE OF PROCEDURE: 05/10/22 PRE-OP DIAGNOSIS: Gastritis POST-OP DIAGNOSIS: other (Gastritis with gastric antral vascular ectasia.) PROCEDURE: EGD SURGEON: Wai Gonzalez ANESTHESIA TYPE: General:No Airway ESTIMATED BLOOD LOSS: 20 PATHOLOGY: other (Duodenal, gastric antral, gastric body, prepyloric mass, gastric mass biopsies) COMPLICATIONS: None DISPOSITION: same day INDICATIONS: Anemia PROCEDURE START TIME: 13:03 PROCEDURE END TIME: 13:11 FINDINGS: Gastritis, thickened gastric mucosa, prepyloric antral ectasia PROCEDURE DESCRIPTION: After the initiation of monitored anesthetic care, and with the assistance of a bite block, I advanced a standard gastroscope through the mouth past the hypopharynx and into the esophagus.? Under the direct vision of the scope, I advanced down the esophagus into the stomach.? Once I entered the stomach, I performed a brief inspection, followed by retroflexion towards the gastric cardia.? This appeared normal.? After that, I gently advanced the scope around the incisura angularis and examined the pylorus.? There were erythematous lines radiating out from the pylorus. This appeared consistent with gastric antral vascular ectasia. The mucosa of the gastric antrum and the gastric body also appeared thickened, but not particularly erythematous. There was a prominent mass in the prepyloric region. I then advanced the scope through the pylorus into the duodenum, which appeared normal. I did perform random biopsies here. I then withdrew the scope back to the prepyloric region. I biopsied the dominant prepyloric mass using cold forceps. There was minimal bleeding. There was another mass along the lesser curvature in the gastric antrum. It seemed consistent with a lipoma. I did obtain mucosal biopsies here, again using the cold forceps. There was no bleeding. Gastric mucosa extending from the antral region towards the gastric body appeared thickened. I performed random biopsies of the antrum as well as the gastric body. There was minimal bleeding. I then gently desufflated some of the stomach, and withdrew the endoscope into the distal esophagus. The Z-line was normal-appearing around 47 cm.. ?Finally, I withdrew the scope along the length of the esophagus taking great care to examine the entirety of the mucosa.? I did not appreciate any abnormalities.
[2022-05-10 12:31] VITALS: BMI 38.5
--- NOTE | 2022-05-10 13:04 | STOM_PTH ---
PATIENT: Carlos Collins LOC: [facility] U#:[id number] AGE/SX: 56/M ROOM: RE05/10/[address]: Wai Gonzalez MD : [id number] BED: DIS: 05/10/2022 SPEC #: [id number] RECD: 05/10/22 13:50 STATUS: LUIS RE #: [id number] DERRICK: 05/10/22 13:[address]: Wai Gonzalez DEPT: Surgical Specimen RECD BY: Annie Park ENTERED: 05/10/22 13:50 SP TYPE: STOMACH OTHR DR: Rosanne Pritchett Tissues: 1 - BIOPSY BOWEL 2 - STOMACH BIOPSY 3 - STOMACH BIOPSY 4 - STOMACH BIOPSY 5 - STOMACH BIOPSY Procedures: GROSS AND MICRO LEVEL 4 IMMUNOPEROXIDASE STAIN Comments: [id number]
[2022-05-10 13:18] VITALS: BP 110/73; PULSE 75; RESP 16; TEMP 36.4; O2SAT 97
--- NOTE | 2022-05-10 13:26 | W.ANESPOSTOP ---
Postoperative Evaluation Date, Time and Location Date Performed: 05/10/22 Time Performed: 13:26 Patient Location: Day [facility] Unit Vital Signs Most Recent Imported Vital Signs: Most Recent Vital Signs Temp Pulse Resp BP Pulse Ox 36.4 C L 75 16 110/73 97 05/10/22 13:18 05/10/22 13:18 05/10/22 13:18 05/10/22 13:18 05/10/22 13:18 Pain Score Most Recent Pain Score: Most Recent Pain Score Pain Level 0 05/10/22 13:18 Assessment Mental Status: Awake (Alert & Oriented to Patient Baseline) Airway and Respiratory Function: Patent airway with normal (patient baseline) respiratory exam Cardiovascular Function: Hemodynamically Stable Hydration Status: Adequately Hydrated Nausea & Vomiting: No Nausea or Vomiting Pain: Pt. Denies Any Pain Peripheral Nerve Block: Patient did not receive a nerve block
[2022-05-10 13:59] VITALS: BP 114/73; PULSE 69; RESP 16; TEMP 36.4; O2SAT 95
== END 2022-05-10 14:30 | disposition home or self-care (01) ==
PROVIDERS: PCP Physician Assistant; Visit Provider Surgery
PROC: 0DJ68ZZ Inspection of Stomach, Via Natural or Artificial Opening Endoscopic (ICD-10-PCS; CPT 43235; principal; 2022-05-10 12:00)
DX: K31.819 Angiodysplasia of stomach and duodenum without bleeding (principal); K29.70 Gastritis, unspecified, without bleeding; K31.89 Other diseases of stomach and duodenum
CPT/HCPCS: 43239; 88305; 88361

== ENCOUNTER → 2022-06-24 01:45 | Outpatient (CLI) | payer MEDICARE, MEDICAID, SELFPAY ==
--- NOTE | 2022-06-24 13:30 | DI.RAD_ITS ---
Exam(s) XR LUMBAR SPINE COMPLETE EXAM: XR LUMBAR SPINE COMPLETE CLINICAL HISTORY: CHRONIC LBP, M54.59. TECHNIQUE: 2D digital imaging was performed of the lumbar spine. Six images were obtained. AP, lat eral, right oblique, left oblique and L5-S1 spot views were obtained. COMPARISON: No exams were available for comparison FINDINGS: BONES: No fracture or destructive lesion. Endplate osteophytes are present throughout the lumbar spin e. Mild degenerative changes of the facets are seen at L5-S1. DISKS: There is disc space narrowing at T12-L1 and L2-L3. ALIGNMENT: Lumbar spinal alignment is within normal limits. No spondylolysis or spondylolisthesis. SOFT TISSUE: Normal. IMPRESSION: Mild lumbar spondylosis. DATA REPOSITORY: RADIATION DOSE DELIVERED:
== END ==
PROVIDERS: PCP Physician Assistant; Visit Provider Physician Assistant
DX: M47.816 Spondylosis without myelopathy or radiculopathy, lumbar region (principal)
CPT/HCPCS: 72110

== ENCOUNTER → 2022-07-11 13:07 | Outpatient (BNVA) | payer MEDICARE, MEDICAID, SELFPAY | PROVIDERS: PCP Physician Assistant; Referring Provider Physician Assistant; Visit Provider Psychiatry & Neurology Neurology | DX: G21.11 Neuroleptic induced parkinsonism (principal); K11.7 Disturbances of salivary secretion; K59.00 Constipation, unspecified; G40.909 Epilepsy, unspecified, not intractable, without status epilepticus | CPT/HCPCS: 99214 ==

== ENCOUNTER 2022-10-22 18:58 | Outpatient (REF) | payer MEDICARE, MEDICAID, SELFPAY ==
[2022-10-22 21:01] LABS: Abs Immature Grans 0.12 10^3/uL (0.0-0.06); Absolute Basophil Count 0.04 10^3/uL (0.0-0.2); Absolute Eosinophil Count 0.41 10^3/uL (0.0-0.7); Absolute Lymphocyte Count 1.58 10^3/uL (1.2-3.4); Absolute Monocyte Count 0.36 10^3/uL (0.1-0.8); Absolute Neutrophil Count 3.16 10^3/uL (1.2-6.7); Basophils % 0.7; Eosinophils % 7.2; HCT 44.6 % (40.0-50.0); HGB 14.5 g/dL (13.5-17.5); Immature Grans % 2.1; Lymphocytes % 27.9; MCH 31.1 pg (27.0-33.0); MCHC 32.5 % (32.0-36.0); MCV 96 fL (80-95); MPV 13.3 fL (8.0-11.0); Monocytes % 6.3; Neutrophils % 55.8; Platelet Count 172 10^3/uL (130-400); RBC 4.66 10^6/uL (4.36-5.78); RDW 14.1 % (11.8-14.1); RDW-SD 49.2 fL; WBC 5.67 10^3/uL (4.4-10.8)
[2022-10-22 21:11] LABS: Iron 79 ug/dL (65-175); Total Iron Binding Capacity 357 ug/dL (250-450); Transferrin Sat 22 % (20-55)
[2022-10-22 21:25] LABS: Ferritin 53 ng/mL (26-388)
== END 2022-10-22 18:59 | disposition home or self-care (01) ==
LOC: NCHCN 18:58
PROVIDERS: PCP Physician Assistant; Visit Provider Physician Assistant
DX: D50.9 Iron deficiency anemia, unspecified (principal)
CPT/HCPCS: 82728; 83540; 83550; 85025

== ENCOUNTER → 2022-11-13 13:33 | Outpatient (BNVA) | payer MEDICARE, MEDICAID, SELFPAY | PROVIDERS: PCP Physician Assistant; Visit Provider Psychiatry & Neurology Neurology | DX: G21.11 Neuroleptic induced parkinsonism (principal); K11.7 Disturbances of salivary secretion; K59.00 Constipation, unspecified; R26.89 Other abnormalities of gait and mobility; G40.909 Epilepsy, unspecified, not intractable, without status epilepticus | CPT/HCPCS: 99214 ==

== ENCOUNTER → 2022-12-24 15:34 | Outpatient (BNVA) | payer MEDICARE, MEDICAID, SELFPAY | PROVIDERS: PCP Physician Assistant; Visit Provider Nurse Practitioner Gerontology | DX: N40.1 Benign prostatic hyperplasia with lower urinary tract symptoms (principal); R39.89 Other symptoms and signs involving the genitourinary system | CPT/HCPCS: 51798; 99213 ==

== ENCOUNTER → 2023-03-19 13:32 | Outpatient (BNVA) | payer MEDICARE, MEDICAID, SELFPAY | PROVIDERS: PCP Physician Assistant; Referring Provider Physician Assistant; Visit Provider Psychiatry & Neurology Neurology | DX: K11.7 Disturbances of salivary secretion (principal); K59.00 Constipation, unspecified; G40.909 Epilepsy, unspecified, not intractable, without status epilepticus; J44.9 Chronic obstructive pulmonary disease, unspecified; G21.11 Neuroleptic induced parkinsonism; R26.89 Other abnormalities of gait and mobility | CPT/HCPCS: 99214 ==

== ENCOUNTER 2023-03-28 15:05 | Outpatient (REF) | payer MEDICARE, MEDICAID, SELFPAY ==
[2023-03-28 19:06] LABS: Abs Immature Grans 0.09 10^3/uL (0.0-0.06); Absolute Basophil Count 0.04 10^3/uL (0.0-0.2); Absolute Lymphocyte Count 1.55 10^3/uL (1.2-3.4); Absolute Monocyte Count 0.45 10^3/uL (0.1-0.8); Absolute Neutrophil Count 3.04 10^3/uL (1.2-6.7); Basophils % 0.7; Eosinophils % 5.5; HCT 46.1 % (40.0-50.0); HGB 14.8 g/dL (13.5-17.5); Immature Grans % 1.6; Lymphocytes % 28.3; MCH 30.9 pg (27.0-33.0); MCHC 32.1 % (32.0-36.0); MCV 96 fL (80-95); MPV 12.7 fL (8.0-11.0); Monocytes % 8.2; Neutrophils % 55.7; Platelet Count 185 10^3/uL (130-400); RBC 4.79 10^6/uL (4.36-5.78); RDW 13.2 % (11.8-14.1); RDW-SD 46.6 fL; WBC 5.47 10^3/uL (4.4-10.8)
[2023-03-28 19:16] LABS: Iron 84 ug/dL (65-175); Total Iron Binding Capacity 365 ug/dL (250-450); Transferrin Sat 23 % (20-55)
[2023-03-28 19:23] LABS: Hemoglobin A1C 5.6 % (<5.7)
[2023-03-28 19:29] LABS: ALT 22 U/L (16-63); AST 19 U/L (15-37); Albumin 4.4 g/dL (3.4-5.0); Alkaline Phosphatase 60 U/L (46-116); Anion Gap 10.5 mmol/L (3-11); BUN 23 mg/dL (7-18); Bilirubin, Total 0.6 mg/dL (0.2-1.0); CO2 23.5 mmol/L (21.0-32.0); CREATININE 1.1 mg/dL (0.70-1.30); Calcium 9.4 mg/dL (8.5-10.1); Chloride 110 mmol/L (98-107); Estimated GFR 78.79 (mL/min/1.73m2); Ferritin 48 ng/mL (26-388); Glucose 111 mg/dL (74-106); Potassium 4.3 mmol/L (3.5-5.1); Sodium 144 mmol/L (136-145); TSH (W/Ref FT4) 1.78 uIU/mL (0.36-3.74); Total Protein 7.3 g/dL (6.4-8.2)
== END 2023-03-28 15:06 | disposition home or self-care (01) ==
LOC: NCHCN 15:05
PROVIDERS: PCP Physician Assistant; Visit Provider Physician Assistant
DX: R73.03 Prediabetes (principal); D50.9 Iron deficiency anemia, unspecified; E66.9 Obesity, unspecified; F25.9 Schizoaffective disorder, unspecified; E78.5 Hyperlipidemia, unspecified; Z79.899 Other long term (current) drug therapy
CPT/HCPCS: 80053; 82728; 83036; 83540; 83550; 84443; 85025

== ENCOUNTER 2023-06-05 17:58 | Outpatient (REF) | payer MEDICARE, MEDICAID, SELFPAY | END 2023-06-05 17:59 | disposition home or self-care (01) | LOC: NCHCN 17:58 | PROVIDERS: PCP Physician Assistant; Visit Provider Nurse Practitioner Family | DX: L03.032 Cellulitis of left toe (principal) | CPT/HCPCS: 87070; 87205 ==

== ENCOUNTER → 2023-06-10 00:58 | Outpatient (CLI) | payer MEDICARE, MEDICAID, SELFPAY ==
--- NOTE | 2023-06-10 | DI.RAD_ITS ---
Exam(s) XR TOE LT GREAT EXAM: XR TOE LT GREAT CLINICAL HISTORY: TOENAIL INFECTION, L03.039. TECHNIQUE: 2D digital imaging was performed. Four views. COMPARISON: CR LEFT FOOT COMPLETE from 03/23/2018 FINDINGS: BONES: No acute fracture is present. No bony destructive lesion is seen. JOINTS: No dislocation present. SOFT TISSUE: Normal. No foreign body. IMPRESSION: No acute abnormality. DATA REPOSITORY: RADIATION DOSE DELIVERED:
== END ==
PROVIDERS: PCP Physician Assistant; Visit Provider Nurse Practitioner Family
DX: L03.032 Cellulitis of left toe (principal)
CPT/HCPCS: 73660

== ENCOUNTER → 2023-07-23 13:10 | Outpatient (BNVA) | payer MEDICARE, MEDICAID, SELFPAY | PROVIDERS: PCP Physician Assistant; Visit Provider Psychiatry & Neurology Neurology | DX: K11.7 Disturbances of salivary secretion (principal); K59.00 Constipation, unspecified; G40.909 Epilepsy, unspecified, not intractable, without status epilepticus; J44.9 Chronic obstructive pulmonary disease, unspecified; G21.11 Neuroleptic induced parkinsonism; R26.89 Other abnormalities of gait and mobility | CPT/HCPCS: 99214 ==

== ENCOUNTER → 2023-11-19 13:05 | Outpatient (BNVA) | payer MEDICARE, MEDICAID, SELFPAY | PROVIDERS: PCP Physician Assistant; Referring Provider Physician Assistant; Visit Provider Psychiatry & Neurology Neurology | DX: K11.7 Disturbances of salivary secretion (principal); K59.00 Constipation, unspecified; G40.909 Epilepsy, unspecified, not intractable, without status epilepticus; R47.1 Dysarthria and anarthria; G21.11 Neuroleptic induced parkinsonism; R26.89 Other abnormalities of gait and mobility | CPT/HCPCS: 99213 ==

== ENCOUNTER 2023-11-27 05:45 | Outpatient (CLI) | payer MEDICARE, MEDICAID, SELFPAY ==
[2023-11-27 10:04] LABS: HCT 43.9 % (40.0-50.0); HGB 14.3 g/dL (13.5-17.5); MCH 30.4 pg (27.0-33.0); MCHC 32.6 % (32.0-36.0); MCV 93 fL (80-95); MPV 11.4 fL (8.0-11.0); Platelet Count 190 10^3/uL (130-400); RDW 13.5 % (11.8-14.1); RDW-SD 45.9 fL; WBC 5.86 10^3/uL (4.4-10.8)
[2023-11-27 10:48] LABS: ALT 12 U/L (16-63); AST 11 U/L (15-37); Albumin 4.2 g/dL (3.4-5.0); Alkaline Phosphatase 67 U/L (46-116); BUN 26 mg/dL (7-18); Bilirubin, Total 0.5 mg/dL (0.2-1.0); CREATININE 1.1 mg/dL (0.70-1.30); Calcium 9.4 mg/dL (8.5-10.1); Chloride 110 mmol/L (98-107); Glucose 114 mg/dL (74-106); Potassium 4.1 mmol/L (3.5-5.1); Sodium 144 mmol/L (136-145); TSH 1.67 uIU/Ml (0.36-3.74); Total Protein 7.8 g/dL (6.4-8.2)
[2023-11-27 10:54] LABS: Ferritin 60 ng/mL (26-388)
[2023-11-27 11:18] LABS: Lithium 0.7 mmol/l (0.6-1.2)
[2023-11-27 11:58] LABS: Iron 88 ug/dL (65-175); Total Iron Binding Capacity 330 ug/dL (250-450); Transferrin Sat 27 % (20-55)
[2023-11-27 12:37] LABS: Hemoglobin A1C 5.6 % (<5.7)
== END 2023-11-27 05:46 | disposition home or self-care (01) ==
LOC: LBO 05:46
PROVIDERS: Psychiatry & Neurology Child & Adolescent Psychiatry; PCP Physician Assistant; Visit Provider Physician Assistant
DX: D50.9 Iron deficiency anemia, unspecified (principal); R73.03 Prediabetes
CPT/HCPCS: 36415; 80053; 85027; 80178; 82728; 83036; 83540; 83550; 84443

== ENCOUNTER → 2023-12-08 08:59 | Outpatient (BNVA) | payer MEDICARE, MEDICAID, SELFPAY | PROVIDERS: PCP Physician Assistant; Referring Provider Physician Assistant; Visit Provider Surgery | DX: L72.3 Sebaceous cyst (principal); L08.89 Other specified local infections of the skin and subcutaneous tissue; F63.9 Impulse disorder, unspecified; F25.9 Schizoaffective disorder, unspecified | CPT/HCPCS: 99214 ==

== ENCOUNTER 2023-12-09 08:50 | Day surgery (SDC) | payer MEDICARE, MEDICAID, SELFPAY ==
--- NOTE | 2023-12-08 12:40 | W.PM.DSUDISC ---
Date of service: 12/09/23 Time of Service: 11:28 Discharge Plan Disposition Patient Disposition: Home Condition: Good Discharge Details Reason For Visit: infected sebaceous cyst Attending Provider: Nataly Holloway Primary Care Provider: Rosanne Pritchett Home Meds and New Rx's Prescriptions: No Action naproxen 500 mg tablet 500 mg PO BID loratadine [Allergy Relief (loratadine)] 10 mg tablet 10 mg PO DAILY ferrous sulfate 325 mg (65 mg iron) tablet 325 mg PO DAILY risperidone [Risperdal] 2 mg tablet 2 mg PO DAILY Rx Instructions: at 1 pm topiramate [Topamax] 100 mg tablet 100 mg PO .COMPLEX Rx Instructions: 100 mg am and 200 mg at 1700 psyllium husk [Fiber (psyllium husk)] 0.52 gram capsule 0.52 g PO DAILY [place]ay Ultra Strength 4-30-10 % cream 1 applic topical TID PRN Rx Instructions: to right upper leg prn pain quetiapine 100 mg tablet 150 mg PO QHS famotidine 20 mg tablet 40 mg PO HS lorazepam 2 mg tablet See Rx Instructions PO BID PRN (Reason: agitation) Rx Instructions: Takes 2mg daily at 1300 and another 2mg daily prn Cosentyx 75 mg/0.5 mL syringe 150 mg subcut QWEEK carbidopa-levodopa [Sinemet] 25-100 mg tablet 1 tab PO TID Qty: 270 3RF Rx Instructions: Take at 6am, 11am, and 4pm ammonium lactate 12 % lotion 1 applic topical DAILY Hold Instructions: Patient Refused risperidone [Risperdal] 1 mg tablet 1 mg PO BID Lactaid Fast Act 9,000 unit tablet,chewable 18,000 unit PO PRN Rx Instructions: administer with meals and/or snacks gemfibrozil 600 mg tablet 600 mg PO DAILY omeprazole 40 mg capsule,delayed release(DR/EC) 40 mg PO DAILY lithium carbonate 300 mg capsule See Rx Instructions PO BID Rx Instructions: 300 mg am and 600 mg pm orally docusate sodium 100 mg capsule 100 mg PO BID Qty: 180 3RF polyethylene glycol 3350 17 gram/dose powder See Rx Instructions .ROUTE .COMPLEX Qty: 510 0RF Dose Instruction: TAKE 17G BY MOUTH EVERY OTHER DAY Rx Instructions: TAKE 17G BY MOUTH EVERY OTHER DAY finasteride 5 mg tablet 5 mg PO DAILY Qty: 30 11RF tamsulosin 0.4 mg capsule 0.8 mg PO DAILY Qty: 60 11RF clonazepam 1 mg tablet 1 mg PO BID lorazepam 1 mg tablet 1 mg PO HS Rx Instructions: . Discharge Instructions Additional Instructions: Wound Care Instruction Pain Control Use ice!? Ice keeps the swelling down and swelling is what causes pain.? Never apply ice directly to the skin.? Wrap it in a towel or cloth.? Apply ice 20 minutes on and 20 minutes off for pain control.? Use as needed. Take Tylenol 500 mg by mouth with food every 4 hours as needed for pain. Or ibuprofen 600 mg by mouth with food every 6 hours as needed for pain.? Do not take Tylenol if you have a history of heavy drinking, hepatitis C or liver problems.? Do not take ibuprofen if you have a history of stomach ulcers/problems, bleeding problem or kidney issues. ? Always wash your hands before touching your incision. ? Keep the incision clean, dry, and out of water, keep the incision out of water. ? Do not to pick at the scabs. Scabs help protect the wound. ? You can take a shower in 24 hours and wash the incision with soap and water. Pat dry/don?t scrub. It?s OK to wash around the incision. But don?t spray water directly on it. ? Pat stitches dry if they get wet. Don't rub. ? Check the incision site daily for pain, redness, drainage, swelling, or separation of the incision edges. ? Make sure any clothing that touches the incision is loose-fitting. This will prevent rubbing. If the incision is on the head, keep your child from wearing caps or other head coverings. These may rub against the incision. As your incision heals, the skin may appear pink or red. It may also feel slightly bumpy or raised. This is called a healing ridge. Over time, the color should fade and the raised skin will become less noticeable. Your health care provider has covered your wound with a wet-to-dry dressing. With this type of dressing, a wet (or moist) gauze dressing is put on your wound and allowed to dry. Wound drainage and tissue can be removed when you take off the old dressing. Follow any instructions you are given on how to change the dressing. Use this sheet as a reminder. What to Expect at Home Your provider will tell you how often you should change your dressing at home. As the wound heals, you should not need as much gauze or packing gauze. Removing the Old Dressing Follow these steps to remove your dressing: ? Wash your hands thoroughly with soap and warm water before and after each dressing change. Remove the old dressing. If it is sticking to your skin, wet it with warm water to loosen it. ? Remove the gauze pads or packing tape from inside your wound. ? Changing Your Dressing Follow these steps to put a new dressing on: ? Place the gauze pads or packing tape in your wound. Carefully fill in the wound and any spaces under the skin.? Use a cotton tip applicator to gently push the packing material into the wound. ? Cover the wet gauze or packing tape with a large dry dressing pad. Use tape or rolled gauze to hold this dressing in place. ? Wash your hands again when you are finished. When to Call the Doctor Call your doctor if you have any of these changes around your wound: ? Worsening redness ? More pain ? Swelling ? Bleeding ? It is larger or deeper ? It looks dried out or dark ? The drainage is increasing ? The drainage has a bad smell Also call your doctor if: ? Your temperature is 100.5?F (38?C), or higher, for more than 4 hours ? Drainage is coming from or around the wound ? Drainage is not decreasing after 3 to 5 days ? Drainage is increasing ? Drainage becomes thick, dupree, yellow, or smells bad Home Health RN ordered Follow-up: 1 week When to seek medical care Call your healthcare provider right away if you have any of these: ? More pain, redness, swelling, bleeding, or foul-smelling discharge around the incision area ? Fever of 101?F (38.3?C) or higher, or as directed by your child's healthcare provider ? Shaking chills ? Vomiting or nausea that doesn?t go away ? Numbness, coldness, or tingling around the incision area, or changes in skin color ? Opening of the sutures or wound -Stitches or demetris that come apart or fall out or surgical tape falls off before 7 days, or as directed by your healthcare provider ?[facility]: [phone] Activity:: see above Remove Dressings/Wound Care:: 24 hours Shower/Bathe:: 24 hours Diet:: As Tolerated Discharge Orders Discharge Orders: Discharge Order (Routine); Ordered 12/09/23 Ordered By: Nataly Hololway DS: Diagnosis Discharge Diagnosis (1) Impulse disorder: Status: Acute (2) Schizoaffective disorder: Status: Acute (3) Hyperlipidemia: Status: Acute (4) BMI 36.0-36.9,adult: Status: Acute (5) Drooling: Status: Acute (6) Benign prostatic hyperplasia without lower urinary tract symptoms: Status: Acute (7) Parkinsonism: Status: Acute (8) Epilepsy: Status: Acute (9) COPD (chronic obstructive pulmonary disease): Status: Chronic (10) Infected sebaceous cyst of skin: Status: Acute Asessment and Plan: The patient is doing well post-op from their infected sebaceous cyst with abscess they are having no nausea or vomiting. They are tolerating liquids and a snack. The pt is not having any chest pain or SOB.? Their pain is adequately controlled. They have been able to urinate.? ?HEENT:? no eye pain/drainage/redness/swelling. Mild sore throat ?Cardio- NSR, no chest pain, BP stable- see VS record ?Pulm: no sob or productive cough. No hemoptysis ?Incision- dressing is c/d/i w/ no excessive bleeding or drainage ?I discussed with the patient the findings at the time of surgery and the patient?s progress. ?We reviewed expectations at home; what the patient could expect for recovery time, and in the post-operative period.? We discussed the importance of walking to avoid blood clots and pneumonia.? We discussed and reviewed the patient's post-operative wound care and dressing needs.?? We reviewed their step-segura pain management plan, Rx called to the pharmacy of their choice.? We reviewed activity and limitations-see discharge instructions. We reviewed warning signs, and when to seek medical attention- see d/c instructions.?? Patient was given a postoperative follow-up appointment. Patient verbalized understanding of their postoperative instructions, how do to take care of themselves and their incision, and the pain management plan. Please see discharge instructions.? (11) Diabetes mellitus type 2 in obese: (12) Asthma:
[2023-12-09] VITALS (8 sets, daily range): BP systolic 83–104; BP diastolic 48–62; PULSE 57–67; RESP 11–18; TEMP 36.4–36.8; O2SAT 93–98; BMI 34.9
--- NOTE | 2023-12-09 06:53 | ANES.PREOP_ITS ---
General Info Date of Service Date Performed: 12/09/23 Height: 5 ft 7 in Weight: 101.378 kg Body Mass Index (BMI): 34.9 Surgical Procedure: Operation Date: 12/09/23 10:10 Proposed Procedure Side Surgeon p Incision and Drainage of infected sebaceous cyst on back Nataly Holloway, DO Meds Allergies and Home Medications Allergies Allergy/AdvReac Type Severity Reaction Status Date / Time lactose Allergy Nausea Verified 12/09/23 09:21 Home Medication Medication Instructions Recorded clonazepam 1 mg tablet 1 mg PO BID 02/21/20 ammonium lactate 12 % lotion 1 applic topical DAILY 08/22/20 naproxen 500 mg tablet 500 mg PO BID 11/29/20 risperidone 1 mg tablet (Risperdal) 1 mg PO BID 11/29/20 famotidine 20 mg tablet 40 mg PO HS 02/28/21 loratadine 10 mg tablet (Allergy 10 mg PO DAILY 05/30/21 Relief (loratadine)) lactase 9,000 unit chewable tablet 18,000 unit PO PRN 02/12/22 (Lactaid Fast Act) gemfibrozil 600 mg tablet 600 mg PO DAILY 04/26/22 omeprazole 40 mg capsule,delayed 40 mg PO DAILY 04/26/22 release camphor 4 %-methyl salicylate 30 1 applic topical TID PRN 01/02/23 %-menthol 10 % topical cream (Bengay Ultra Strength) ferrous sulfate 325 mg (65 mg 325 mg PO DAILY 01/02/23 iron) tablet psyllium husk 0.52 gram capsule 0.52 g PO DAILY 01/02/23 (Fiber (psyllium husk)) risperidone 2 mg tablet (Risperdal) 2 mg PO DAILY 01/02/23 topiramate 100 mg tablet (Topamax) 100 mg PO .COMPLEX 01/02/23 lithium carbonate 300 mg capsule See Rx Instructions PO BID 01/06/23 lorazepam 1 mg tablet 1 mg PO HS 01/06/23 lorazepam 2 mg tablet See Rx Instructions PO BID PRN 01/06/23 agitation docusate sodium 100 mg capsule 100 mg PO BID #180 caps 07/09/23 polyethylene glycol 3350 17 See Rx Instructions .Route 07/18/23 gram/dose oral powder .COMPLEX #510 grams secukinumab 75 mg/0.5 mL 150 mg subcut QWEEK 07/23/23 subcutaneous syringe (Cosentyx) finasteride 5 mg tablet 5 mg PO DAILY #30 tabs 08/04/23 tamsulosin 0.4 mg capsule 0.8 mg (2 x 0.4 mg) PO DAILY #60 10/27/23 caps carbidopa 25 mg-levodopa 100 mg 1 tab PO TID #270 tabs 11/19/23 tablet (Sinemet) quetiapine 100 mg tablet 150 mg PO QHS 12/08/23 Current Visit Medications: Current Medications Generic Name Dose Route Start Last Admin Trade Name Freq PRN Reason Stop Dose Admin Acetaminophen 1,000 mg 12/09/23 06:00 Acetaminophen 500 Mg Tab PO 12/09/23 16:00 PREOP CRUZ Gabapentin 600 mg 12/09/23 06:00 Gabapentin 300 Mg Cap PO 12/09/23 16:00 PREOP [facility] Ondansetron HCl 4 mg/ Sodium 52 mls @ 200 mls/hr 12/09/23 00:37 Chloride IVPB 01/08/24 00:36 Q6H PRN PRN Ringer's Solution 1,000 mls @ 80 mls/hr 12/09/23 06:00 IV 01/07/24 23:59 INFUSION CRUZ Cefazolin Sodium/Dextrose 2 gm in 50 mls @ 100 mls/hr 12/09/23 06:00 Ancef Duplex IVPB 12/09/23 16:00 PREOP [facility] IV Miscellaneous Supplies 1 each 12/09/23 06:00 Iv Access IV 01/07/24 23:59 DIRECTED CRUZ Morphine Sulfate 2 mg 12/09/23 00:37 Morphine 4 Mg/Ml Syr IVP 01/08/24 00:36 Q1H PRN PRN Sodium Chloride 0 ml 12/09/23 06:00 Normal Saline Flush 10 Ml Syr IV 01/07/24 23:59 PRN PRN Sodium Chloride 0 ml 12/09/23 06:00 Normal Saline 10 Ml Vial IJ 01/07/24 23:59 DIRECTED PRN Sterile Water 0 ml 12/09/23 06:00 Water,Injection,Sterile 10 Ml Vial IJ 01/07/24 23:59 DIRECTED PRN PFSH Active Problems Active Problems: Problem Status Onset Code Infected sebaceous cyst of skin L72.3, L08.9 Dysarthria R47.1 Sebaceous cyst L72.3 Corns and callosities L84 Nail dystrophy L60.3 BMI 36.0-36.9,adult Z68.36 COPD (chronic obstructive pulmonary disease) J44.9 Benign prostatic hyperplasia without lower urinary tract symptoms N40.0 Impulse disorder F63.9 Lactose intolerance E73.9 Hyperlipidemia E78.5 Schizoaffective disorder F25.9 Parkinsonism G20 Abscess L02.91 Tubulovillous adenoma of colon D12.6 Drooling K11.7 Constipation K59.00 Edema R60.9 Hemorrhoids K64.9 Epilepsy G40.909 Medical History Medical History Anemia Helicobacter pylori (H. pylori) Gastric antral vascular ectasia Serrated adenoma of colon Seizures per provider states its been a very very long time since he's had one, at least +4 years Chronic lower back pain History of splenomegaly Neuroleptic-induced parkinsonism Tubulovillous adenoma (~11/2016) 2016: with focal high grade dysplasia Skin cancer Asthma Sleep disturbance Urge incontinence Foot callus Drug-induced Parkinsonism Chronic diarrhea Urinary incontinence BPH (benign prostatic hyperplasia) Diabetes mellitus type 2 in obese Reports prediabetic now no medications/does not take blood sugars. Psoriasis Surgical History Surgical History History of esophagogastroduodenoscopy (EGD) (~05/10/22) S/P skin cancer resection Hx of colonoscopy H/O pilonidal cyst Colonoscopy - MAC (11/08/16) Tobacco Smoking/Tobacco Use Status: Former Tobacco Use Alcohol Alcohol Intake: never Substance Use Substance use: Never Substance use type: does not use Vital Signs and Lab Results Lab Results Blood Type / Crossmatch: No Data to Display Complete Blood Count: White Blood Count 5.86 10^3/uL (4.4-10.8) 11/27/23 09:55 Red Blood Count 4.70 10^6/uL (4.36-5.78) 11/27/23 09:55 Hemoglobin 14.3 g/dL (13.5-17.5) 11/27/23 09:55 Hematocrit 43.9 % (40.0-50.0) 11/27/23 09:55 Platelet Count 190 10^3/uL (130-400) 11/27/23 09:55 Complete Metabolic Panel: Sodium 144 mmol/L (136-145) 11/27/23 09:55 Potassium 4.1 mmol/L (3.5-5.1) 11/27/23 09:55 Chloride 110 mmol/L (98-107) H 11/27/23 09:55 Carbon Dioxide 25.0 mmol/L (21.0-32.0) 11/27/23 09:55 BUN 26 mg/dL (7-18) H 11/27/23 09:55 Creatinine 1.1 mg/dL (0.70-1.30) 11/27/23 09:55 Est GFR (CKD-EPI 2020) 78.30 (mL/min/1.73m2) 11/27/23 09:55 Calcium 9.4 mg/dL (8.5-10.1) 11/27/23 09:55 Albumin 4.2 g/dL (3.4-5.0) 11/27/23 09:55 Glucose 114 mg/dL (74-106) H 11/27/23 09:55 Hemoglobin A1c 5.6 % (<5.7) 11/27/23 09:55 Liver Function Panel: Alanine Aminotransferase (ALT/SGPT) 12 U/L (16-63) L 11/27/23 0 9:55 Aspartate Amino Transf (AST/SGOT) 11 U/L (15-37) L 11/27/23 09: 55 Coagulation Panel: No Data to Display Cardiac Panel: No Data to Display Arterial Blood Gas: No Data to Display Venous Blood Gas: No Data to Display Pancreas Panel: No Data to Display Thyroid Panel: Thyroid Stimulating Hormone (TSH) 1.67 uIU/Ml (0.36-3.74) 11/26 09:55 Infectious Disease: No Data to Display Blood Cultures: No Data to Display Toxicology Panel: No Data to Display Imaging and Studies Imaging and Studies Study information below may be from another EMR and interpreted by another provider. Please see original notes in EMR for more complete details. Echocardiogram Summary: Date of study: 09/09/2018 Transthoracic Echocardiography Summary: 1. Left ventricle: The cavity size was normal. Wall thickness was normal. Systolic function was normal. The estimated ejection fraction was 55-60%. Wall motion was normal; there were no regional wall motion abnormalities. Diastolic parameters were normal. 2. Right ventricle: The cavity size was normal. Wall thickness was normal. Systolic function was normal. Anesthesia Assessment and Plan Anesthesia History Personal History: No History of Anesthesia Complications Family History: Family History Unknown Exercise Tolerance Exercise Tolerance: Metabolic Equivalents>4 Cardiac & Pulmonary Exam Cardiac Exam: Normal S1/S2 Heart Sounds Pulmonary Exam: Clear Bilateral Breath Sounds Implantable Cardiac Device Does patient have a Pacemaker or an ICD?: No Airway Exam Known Difficult Airway: No Mallampati Class: 3 Mouth Opening: Normal (> 3cm) Thyromental Distance: Greater than 3 cm Neck Range of Motion: Full ROM Neck Circumference: Normal Teeth Condition: Normal Dentition ASA Classification ASA Score: ASA 3 Emergency Case?: No NPO Status NPO Status: NPO Clears >2 hours, Solids >8 hours Anesthesia Plan Resuscitation Status: Full Code Anesthesia Technique: General Anesthesia Airway Planned: Endotracheal Tube Monitors Used: Standard Monitors Preoperative Comments:: 58 yo male for ID. Sig PMHx: asthma/COPD (breathing feels good today), sz, parkinsonism (carbidopa- levodopa last dose this AM), DM2, former smoker. Previous Anes: - EGD, prop, natural airway, no issues. - multiple colo, prop, natural airway, no issues. Consent obtained via phone from guardian Awais Villela.
[2023-12-09] MEDS: Acetaminophen 500 MG TAB 1000 MG PO (09:58)
[2023-12-09] MEDS: Gabapentin 300 MG CAP 600 MG PO (09:58)
[2023-12-09] MEDS: Lactated Ringers 1,000 ML 80 ML IV (09:59)
[2023-12-09] MEDS: ceFAZolin 2 GM/50 ML BAG IVPB (10:31)
--- NOTE | 2023-12-09 11:09 | SOFT_PTH ---
PATIENT: Carlos Collins LOC: [facility] U#:[id number] AGE/SX: 58/M ROOM: RE12/09/[address]: Nataly Holloway : 1965 BED: DIS: 12/09/2023 SPEC #: [id number] RECD: 12/09/23 13:11 STATUS: LUIS REQ #: [id number] DERRICK: 12/09/23 11:[address]: Nataly Holloway DEPT: Surgical Specimen RECD BY: Annie Park ENTERED: 12/09/23 13:11 SP TYPE: SOFT OTHR DR: Rosanne Pritchett Tissues: 1 - SOFT TISSUE-CYST(NOT LIPOMA) Procedures: GROSS AND MICRO LEVEL 3 Comments: [id number]
--- NOTE | 2023-12-09 11:25 | W.PM.OP ---
Date of service: 12/09/23 Time of Service: 11:25 Operative Note Operative Note DATE OF PROCEDURE: 12/09/23 PRE-OP DIAGNOSIS: Infected sebaceous cyst POST-OP DIAGNOSIS: same PROCEDURE: Removal of infected sebaceous cyst and irrigation SURGEON: Nataly Holloway SWEEPING COMPOUND BLENDER: Jennifer Carrillo ANESTHESIA TYPE: Local By Surgeon and General LMA/ETT Refer to Anesthesia Record ESTIMATED BLOOD LOSS: 15 PATHOLOGY: other COMPLICATIONS: None Patient was transported to: PACU Patient's condition: stable Procedure Description: Patient is a 58-year-old mentally handicapped man with a large infected sebaceous cyst and here today for incision and drainage. He needs to be general and consent for anesthesia was obtained from his guardian. Conset for the procedure was obtained from his guardian explaining risks and benefits of procedure include not limited to bleeding, infection, scarring, poor cosmesis, need for repeat debridement, need for prolonged packing. Patient is brought to the operative room suite placed supine position by the department of anesthesia. Patient is then placed in the prone position with all bony surfaces padded. He is prepped and draped in the usual sterile fashion using a ChloraPrep scrub solution. He received preop antibiotics. Timeout is performed. 30 cc of quarter percent Marcaine Marcaine with epi is used for local anesthesia. There is a open draining sinus in the lesion. This is excised with a scalpel. Aerobic and anaerobic cultures are taken. The remainder of the cyst capsule is excised sharply down to the fat. Pressure is held bleeding stops. It is irrigated with a liter of saline. Total seize is [id number]. It is packed with wet-to-dry dressings. Sterile compression dressings are applied. Patient to have serial complication transferred recovery in stable condition.
--- NOTE | 2023-12-09 11:30 | PDOC.HHF2F ---
Home Health Referral Home Health Orders Clinical synopsis of why skilled professionals are needed: pt has infected sebaceous cyst. WIll need daily dressing changes and close monitoring Medical diagnosis necessitation home health referral: sebaceous cyst w/ asbcess Registered Nurse: Check all that apply Assess for exacerbation of medical condition, instruct patient/caregivers on signs and symptoms to report for early detection: Ordered Assess wound for signs and symptoms of infection, instruct on wound care and/or provide skilled wound care consisting of: and wet to dry packing daily Home Bound Status Requires the aid of supportive device (check all that apply): Other (pt does not drive ) Patient has a condition such that leaving home is medically contraindicated (Describe): pt requires chronic caregiver Describe why leaving home would require a considerable and taxing effort: Side effects from pain medication (sedation/drowsiness), Requires frequent rest periods, Safety Concerns: describe and Requires alternative accommodations: Encounter Date and Reason: I certify that a FTF encounter for this patient was performed on December 09, 2023 and that such encounter was related to the primary reason the patient requires home health services. The encounter was conducted in the following manner: By me as the certifying physician, MARKETING PLANNING MANAGER, PA or By an inpatient physician, MARKETING PLANNING MANAGER or PA during an inpatient stay who communicated findings to me, Certification And Authentication I certify that I composed the above information based on my clinical judgment relating to this patient's medical condition and, if applicable, clinical findings communicated to me by the NPP or inpatient physician who performed the FTF encounter. Name of Provider that will be monitoring home health services: Nataly Holloway
--- NOTE | 2023-12-09 11:50 | W.ANESPOSTOP ---
Postoperative Evaluation Date, Time and Location Date Performed: 12/09/23 Time Performed: 11:50 Patient Location: PACU Vital Signs Most Recent Imported Vital Signs: Most Recent Vital Signs Temp Pulse Resp BP Pulse Ox 36.6 C 63 11 L 97/60 L 94 12/09/23 11:40 12/09/23 11:40 12/09/23 11:40 12/09/23 11:40 12/09/23 11:40 Pain Score Most Recent Pain Score: Most Recent Pain Score Pain Level 0 12/09/23 11:40 Assessment Mental Status: Awake (Alert & Oriented to Patient Baseline) Airway and Respiratory Function: Patent airway with normal (patient baseline) respiratory exam Cardiovascular Function: Hemodynamically Stable Hydration Status: Adequately Hydrated Nausea & Vomiting: No Nausea or Vomiting Pain: Pain is tolerable per patient Peripheral Nerve Block: Patient did not receive a nerve block
[2023-12-09] MEDS: Carbidopa 25/Levodopa 100 TAB PO (12:01)
--- NOTE | 2023-12-09 12:23 | PDOC.DSDIS_ITS ---
Date of service: 12/09/23 Time of Service: 12:34 Discharge Plan Disposition Patient Disposition: Home Condition: Good Discharge Details Reason For Visit: infected sebaceous cyst Attending Provider: Nataly Holloway Primary Care Provider: Rosanne Pritchett Home Meds and New Rx's Prescriptions: New acetaminophen [Tylenol Extra Strength] 500 mg tablet 500 mg PO Q6H PRN (Reason: pain) Qty: 90 0RF tramadol 50 mg tablet 50 mg PO Q6H PRNQty: 10 0RF Rx Instructions: Will cause constipation No Action naproxen 500 mg tablet 500 mg PO BID loratadine [Allergy Relief (loratadine)] 10 mg tablet 10 mg PO DAILY ferrous sulfate 325 mg (65 mg iron) tablet 325 mg PO DAILY risperidone [Risperdal] 2 mg tablet 2 mg PO DAILY Rx Instructions: at 1 pm topiramate [Topamax] 100 mg tablet 100 mg PO .COMPLEX Rx Instructions: 100 mg am and 200 mg at 1700 psyllium husk [Fiber (psyllium husk)] 0.52 gram capsule 0.52 g PO DAILY Bengay Ultra Strength 4-30-10 % cream 1 applic topical TID PRN Rx Instructions: to right upper leg prn pain quetiapine 100 mg tablet 150 mg PO QHS famotidine 20 mg tablet 40 mg PO HS lorazepam 2 mg tablet See Rx Instructions PO BID PRN (Reason: agitation) Rx Instructions: Takes 2mg daily at 1300 and another 2mg daily prn Cosentyx 75 mg/0.5 mL syringe 150 mg subcut QWEEK carbidopa-levodopa [Sinemet] 25-100 mg tablet 1 tab PO TID Qty: 270 3RF Rx Instructions: Take at 6am, 11am, and 4pm ammonium lactate 12 % lotion 1 applic topical DAILY Hold Instructions: Patient Refused risperidone [Risperdal] 1 mg tablet 1 mg PO BID Lactaid Fast Act 9,000 unit tablet,chewable 18,000 unit PO PRN Rx Instructions: administer with meals and/or snacks gemfibrozil 600 mg tablet 600 mg PO DAILY omeprazole 40 mg capsule,delayed release(DR/EC) 40 mg PO DAILY lithium carbonate 300 mg capsule See Rx Instructions PO BID Rx Instructions: 300 mg am and 600 mg pm orally docusate sodium 100 mg capsule 100 mg PO BID Qty: 180 3RF polyethylene glycol 3350 17 gram/dose powder See Rx Instructions .ROUTE .COMPLEX Qty: 510 0RF Dose Instruction: TAKE 17G BY MOUTH EVERY OTHER DAY Rx Instructions: TAKE 17G BY MOUTH EVERY OTHER DAY finasteride 5 mg tablet 5 mg PO DAILY Qty: 30 11RF tamsulosin 0.4 mg capsule 0.8 mg PO DAILY Qty: 60 11RF clonazepam 1 mg tablet 1 mg PO BID lorazepam 1 mg tablet 1 mg PO HS Rx Instructions: . Discharge Instructions Additional Instructions: Wound Care Instruction Pain Control Use ice!? Ice keeps the swelling down and swelling is what causes pain.? Never apply ice directly to the skin.? Wrap it in a towel or cloth.? Apply ice 20 minutes on and 20 minutes off for pain control.? Use as needed. Take Tylenol 500 mg by mouth with food every 6 hours as needed for pain, first- line. ? Do not take ibuprofen if you have a history of stomach ulcers/problems, bleeding problem or kidney issues. ? Always wash your hands before touching your incision. ? Keep the incision clean, dry, and out of water, keep the incision out of water. ? Do not to pick at the scabs. Scabs help protect the wound. ? You can take a shower in 24 hours and wash the incision with soap and water. Pat dry/don?t scrub. It?s OK to wash around the incision. But don?t spray water directly on it. ? Pat stitches dry if they get wet. Don't rub. ? Check the incision site daily for pain, redness, drainage, swelling, or separation of the incision edges. ? Make sure any clothing that touches the incision is loose-fitting. This will prevent rubbing. If the incision is on the head, keep your child from wearing caps or other head coverings. These may rub against the incision. As your incision heals, the skin may appear pink or red. It may also feel slightly bumpy or raised. This is called a healing ridge. Over time, the color should fade and the raised skin will become less noticeable. -give tramadol 60 mins prior to dressing change. Will cause constipation. Also can use as a second line agent for pain. -May need to take MiraLAX daily while on this medication -can remove packing, shower, and than replaced packing starting -no lifting over 5#'s or strenuous activity for 72 hrs Your health care provider has covered your wound with a wet-to-dry dressing. With this type of dressing, a wet (or moist) gauze dressing is put on your wound and allowed to dry. Wound drainage and tissue can be removed when you take off the old dressing. Follow any instructions you are given on how to change the dressing. Use this sheet as a reminder. What to Expect at Home Your provider will tell you how often you should change your dressing at home. As the wound heals, you should not need as much gauze or packing gauze. Removing the Old Dressing Follow these steps to remove your dressing: ? Wash your hands thoroughly with soap and warm water before and after each dressing change. Remove the old dressing. If it is sticking to your skin, wet it with warm water to loosen it. ? Remove the gauze pads or packing tape from inside your wound. ? Changing Your Dressing Follow these steps to put a new dressing on: ? Place the gauze pads or packing tape in your wound. Carefully fill in the wound and any spaces under the skin.? Use a cotton tip applicator to gently push the packing material into the wound. ? Cover the wet gauze or packing tape with a large dry dressing pad. Use tape or rolled gauze to hold this dressing in place. ? Wash your hands again when you are finished. When to Call the Doctor Call your doctor if you have any of these changes around your wound: ? Worsening redness ? More pain ? Swelling ? Bleeding ? It is larger or deeper ? It looks dried out or dark ? The drainage is increasing ? The drainage has a bad smell Also call your doctor if: ? Your temperature is 100.5?F (38?C), or higher, for more than 4 hours ? Drainage is coming from or around the wound ? Drainage is not decreasing after 3 to 5 days ? Drainage is increasing ? Drainage becomes thick, dupree, yellow, or smells bad Home Health RN ordered Follow-up: 1 week In [facility] When to seek medical care Call your healthcare provider right away if you have any of these: ? More pain, redness, swelling, bleeding, or foul-smelling discharge around the incision area ? Fever of 101?F (38.3?C) or higher, or as directed by your child's healthcare provider ? Shaking chills ? Vomiting or nausea that doesn?t go away ? Numbness, coldness, or tingling around the incision area, or changes in skin color ? Opening of the sutures or wound -Stitches or demetris that come apart or fall out or surgical tape falls off before 7 days, or as directed by your healthcare provider ?[facility]: [phone] Stand Alone Forms: Anesthesia Discharge Inst.Alexis (DSU) Activity:: see above Remove Dressings/Wound Care:: 24 hours Shower/Bathe:: 24 hours Diet:: As Tolerated Discharge Orders Discharge Orders: Discharge Order (Routine); Ordered 12/09/23 Ordered By: Nataly Holloway DS: Diagnosis Discharge Diagnosis (1) Impulse disorder: Status: Acute (2) Schizoaffective disorder: Status: Acute (3) Hyperlipidemia: Status: Acute (4) BMI 36.0-36.9,adult: Status: Acute (5) Drooling: Status: Acute (6) Benign prostatic hyperplasia without lower urinary tract symptoms: Status: Acute (7) Parkinsonism: Status: Acute (8) Epilepsy: Status: Acute (9) COPD (chronic obstructive pulmonary disease): Status: Chronic (10) Infected sebaceous cyst of skin: Status: Acute (11) Diabetes mellitus type 2 in obese: (12) Asthma:
[2023-12-09] MEDS: Ketorolac 15 MG/ML VIAL IVP (12:32)
== END 2023-12-09 13:15 | disposition home or self-care (01) ==
LOC: SUR 08:52
PROVIDERS: PCP Physician Assistant; Visit Provider Surgery
PROC: (CPT 11406; principal; 2023-12-09 10:00)
DX: L72.3 Sebaceous cyst (principal); F25.9 Schizoaffective disorder, unspecified; E78.5 Hyperlipidemia, unspecified; J44.9 Chronic obstructive pulmonary disease, unspecified; G40.909 Epilepsy, unspecified, not intractable, without status epilepticus
CPT/HCPCS: 11406; 88305; 87070; 87075; 87205; 88304; J0690; J1100; J1885; J2001; J2371; J2405; J2704

== ENCOUNTER → 2023-12-10 11:20 | Outpatient (BNVA) | payer MEDICARE, MEDICAID, SELFPAY | PROVIDERS: PCP Physician Assistant; Referring Provider Physician Assistant; Visit Provider Physical Therapy Assistant | DX: Z51.89 Encounter for other specified aftercare (principal) ==

== ENCOUNTER → 2023-12-15 10:37 | Outpatient (BNVA) | payer MEDICARE, MEDICAID, SELFPAY | PROVIDERS: PCP Physician Assistant; Referring Provider Physician Assistant; Visit Provider Surgery | DX: Z48.817 Encounter for surgical aftercare following surgery on the skin and subcutaneous tissue (principal); L72.3 Sebaceous cyst ==

== ENCOUNTER → 2023-12-23 09:56 | Outpatient (BNVA) | payer MEDICARE, MEDICAID, SELFPAY | PROVIDERS: PCP Physician Assistant; Visit Provider Nurse Practitioner Gerontology | DX: N40.0 Benign prostatic hyperplasia without lower urinary tract symptoms (principal) | CPT/HCPCS: 51798; 99214 ==

== ENCOUNTER 2023-12-29 05:03 | Outpatient (CLI) | payer MEDICARE, MEDICAID, SELFPAY ==
[2023-12-29 19:15] LABS: PSA, Screening 0.4 ng/mL (<=3.5)
== END 2023-12-29 05:04 | disposition home or self-care (01) ==
LOC: LBO 05:03
PROVIDERS: PCP Physician Assistant; Visit Provider Nurse Practitioner Gerontology
DX: N40.1 Benign prostatic hyperplasia with lower urinary tract symptoms (principal); N13.8 Other obstructive and reflux uropathy; R39.9 Unspecified symptoms and signs involving the genitourinary system
CPT/HCPCS: 36415; 84153

== ENCOUNTER → 2024-01-07 14:34 | Outpatient (BNVA) | payer MEDICARE, MEDICAID, SELFPAY | PROVIDERS: PCP Physician Assistant; Referring Provider Physician Assistant; Visit Provider Podiatrist | DX: B35.1 Tinea unguium (principal); L60.3 Nail dystrophy; D50.9 Iron deficiency anemia, unspecified; L60.8 Other nail disorders; R09.89 Other specified symptoms and signs involving the circulatory and respiratory systems; R60.0 Localized edema; L85.9 Epidermal thickening, unspecified; M79.674 Pain in right toe(s); M79.675 Pain in left toe(s); L65.9 Nonscarring hair loss, unspecified | CPT/HCPCS: 11721 ==

== ENCOUNTER → 2024-02-09 12:58 | Outpatient (BNVA) | payer MEDICARE, MEDICAID, SELFPAY | PROVIDERS: PCP Physician Assistant; Referring Provider Physician Assistant; Visit Provider Surgery | DX: L72.3 Sebaceous cyst (principal); F63.9 Impulse disorder, unspecified; F25.9 Schizoaffective disorder, unspecified; G20.C Parkinsonism, unspecified; Z68.36 Body mass index [BMI] 36.0-36.9, adult; E66.9 Obesity, unspecified; G40.909 Epilepsy, unspecified, not intractable, without status epilepticus; J44.9 Chronic obstructive pulmonary disease, unspecified | CPT/HCPCS: 99213 ==

== ENCOUNTER → 2024-04-12 12:33 | Outpatient (BNVA) | payer MEDICARE, MEDICAID, SELFPAY | PROVIDERS: PCP Physician Assistant; Visit Provider Surgery | DX: L72.3 Sebaceous cyst (principal); L81.9 Disorder of pigmentation, unspecified | CPT/HCPCS: 11421 ==

== ENCOUNTER → 2024-04-22 11:31 | Outpatient (BNVA) | payer MEDICARE, MEDICAID, SELFPAY | PROVIDERS: PCP Physician Assistant; Referring Provider Physician Assistant; Visit Provider Surgery | DX: Z12.11 Encounter for screening for malignant neoplasm of colon (principal); K64.9 Unspecified hemorrhoids ==

== ENCOUNTER 2024-05-07 10:07 | Day surgery (SDC) | payer MEDICARE, MEDICAID, SELFPAY ==
--- NOTE | 2024-05-06 16:06 | W.COLOREPORT ---
Date of service: 05/07/24 Time of Service: 13:04 Colonoscopy Report Date of procedure: 05/07/24 Pre-op diagnosis general: Serrated adenoma of the ascending colon Post-op diagnosis procedure note: other (Sigmoid diverticula) Surgeon: Nataly Holloway Anesthesia Type: General:No Airway Estimated blood loss (mL): 0 Pathology: none sent Complications: None Disposition: same day Prep: Miralax/Dulcolax Retraction Time: 15 Procedure Description: ASSESSMENT: The lesion is _1x1 Cm in size. Differential diagnosis includes:_Actinic keratosis versus melanoma Location: Mid upper back Procedural Sedation 1% buffered lidocaine 8_cc Technique Patient appears well. Vitals are normal. The patient has no allergies to lidocaine or suture material. The patient not on any blood thinners. The pt has no history of keloids or problems with healing in the past. Skin: see HPI Informed consent was obtained prior to beginning the procedure. The area was marked and doubled checked/ID?ed with the pt. PAUSE for the CAUSE completed. The risks of lesion removal include but are not limited to: bleeding, infection, scarring, reoccurrence, and the need for removal of more tissue, and complications of anesthesia. After informed consent was obtained, using Chloroprep for cleansing and 1% Buffered Lidocaine for anesthetic; using sterile technique, PROCEDURE:_Excision was performed. The lesion is _one by one cm in size. The incision was 1.5_Cm long. The incision is closed w/ interrupted sutures of 3-0 nylon. An Antibiotic salve and sterile dressing is applied, and wound care instructions provided. The procedure was well tolerated without complications. Plan: The patient will follow up in 10 days for suture removal and review of pathology. If there is any bleeding/redness/drainage/swelling/pain or tenderness- call the clinic. Patient was given instructions in wound care, activity, warning signs, appointment for follow up. If the patient has any questions or concerns, should call our clinic or go to ER/urgent care after hours. Patient expressed understanding in directions for care and was given a written copy of instructions. [facility], if appropriate Pt tolerated the procedure well without complications Patient was given instruction in activity restrictions, wound care and dressing changes. Medication usage, diet, warning signs to look for (and what to do if they occur), and an appointment for follow-up. After informed consent was obtained, explaining risks of the procedure, including but not limits to: bleeding, infections, complications of anesthesia, perforations (which may require antibiotics and /or surgery and stay in the hospital), and abdominal pain/cramping. The patient was taken to the procedure room and placed in a left decubitous position. Monitors were applied and a time out was done. The patients name, date of , procedure, allergies to medications and metal in their body was reviewed. The patient was then sedated. Once sedated and comfortable a rectal exam was done. External exam was normal. Internal exam revealed a normal sphincter tone and no palpable masses. The prostate no palpable masses The previously lubricated Olympus scope was then introduced (see RN notes for scope number) and retrofelexed. No internal hemorrhoids were identified. The scope was then advanced to the cecum without difficulty. The TI and appendiceal orifice were identified. The scope was then slowly retracted over 15 minutes back into the rectum. Polyps: No. Diverticula: pt had a moderate amount of small mouthed diverticula in the sigmoid colon. There were no signs of active bleeding or infection. The mucosa is pink and healthy w/ a normal vascular pattern. The scope was removed, and the patient was woken up and taken back to Same day surgery in stable condition. The patient tolerated the procedure well and there were no immediate complications. Follow up: The patient should follow up in 15 years, unless they develop changes in bowel habits or other new gastrointestinal complaints. Sharon Bowel Prep Sharon Bowel Prep Right Colon: 3 Left Colon: 3 Transverse Colon: 3 Total Score: 9
--- NOTE | 2024-05-06 16:09 | W.PM.DSUDISC ---
Date of service: 05/07/24 Time of Service: 12:54 Discharge Plan Disposition Patient Disposition: Home Discharge Details Reason For Visit: colon scope and lesion removal Attending Provider: Nataly Holloway Primary Care Provider: Rosanne Pritchett Home Meds and New Rx's Prescriptions: Continued naproxen 500 mg tablet 500 mg PO BID ferrous sulfate 325 mg (65 mg iron) tablet 325 mg PO DAILY risperidone [Risperdal] 2 mg tablet 2 mg PO DAILY Rx Instructions: at 1 pm topiramate [Topamax] 100 mg tablet 100 mg PO .COMPLEX Rx Instructions: 100 mg am and 200 mg at 1700 psyllium husk [Fiber (psyllium husk)] 0.52 gram capsule 0.52 g PO DAILY Bengay Ultra Strength 4-30-10 % cream 1 applic topical TID PRN Rx Instructions: to right upper leg prn pain quetiapine 100 mg tablet 150 mg PO QHS ketoconazole 2 % cream 1 applic topical DAILY Qty: 120 6RF Rx Instructions: Apply to toenails once daily urea 40 % cream 1 applic topical DAILY Qty: 28.35 3RF famotidine 20 mg tablet 40 mg PO HS lorazepam 2 mg tablet See Rx Instructions PO BID PRN (Reason: agitation) Rx Instructions: Takes 2mg daily at 1300 and another 2mg daily prn carbidopa-levodopa [Sinemet] 25-100 mg tablet 1 tab PO TID Qty: 270 3RF Rx Instructions: Take at 6am, 11am, and 4pm risperidone [Risperdal] 1 mg tablet 1 mg PO BID Lactaid Fast Act 9,000 unit tablet,chewable 18,000 unit PO PRN Rx Instructions: administer with meals and/or snacks gemfibrozil 600 mg tablet 600 mg PO DAILY omeprazole 40 mg capsule,delayed release(DR/EC) 40 mg PO DAILY lithium carbonate 300 mg capsule 300 mg PO DAILY docusate sodium 100 mg capsule 100 mg PO BID Qty: 180 3RF finasteride 5 mg tablet 5 mg PO DAILY Qty: 30 11RF tamsulosin 0.4 mg capsule 0.8 mg PO DAILY Qty: 60 11RF Cosentyx 75 mg/0.5 mL syringe 300 mg subcut MONTHLY clonazepam 1 mg tablet 1 mg PO BID lorazepam 1 mg tablet 1 mg PO HS Rx Instructions: . acetaminophen [Tylenol Extra Strength] 500 mg tablet 500 mg PO Q6H PRN (Reason: pain) Qty: 90 0RF cephalexin 500 mg capsule 500 mg PO QID Discontinued polyethylene glycol 3350 17 gram/dose powder 238 g PO ONCE Qty: 238 0RF Rx Instructions: take per colonoscopy instructions bisacodyl [Dulcolax (bisacodyl)] 5 mg tablet,delayed release (DR/EC) 5 mg PO ONCE Qty: 8 0RF Rx Instructions: take per colonoscopy instructions polyethylene glycol 3350 17 gram/dose powder See Rx Instructions .ROUTE .COMPLEX Qty: 510 0RF Dose Instruction: TAKE 17G BY MOUTH EVERY OTHER DAY Rx Instructions: TAKE 17G BY MOUTH EVERY OTHER DAY No Action famotidine 40 mg tablet lithium carbonate 600 mg capsule 600 mg PO HS Discharge Instructions Additional Instructions: DSU Colonoscopy Post-Op Instructions Instructions for Everyone who is given Anesthesia: For your safety, please do the following for the next twenty-four (24) hours: *Do Not operate a motor vehicle (car, truck, motorcycle, etc.) *Do Not drink alcoholic beverages or use any recreational drugs for the first 24 hours or while taking pain medications. The medications in your body may have a reaction that can be dangerous. *Do Not make any important decisions or sign any important papers. Findings: no polyps few diverticula Follow up: Repeat in 5 yrs time sutures come out in 10 days. Can follow-up in clinic for suture removal or have them taken out at home. 1. No lifting over 20 pounds or strenuous activity for the first 24 hours after your procedure. After 24 hours there are no restrictions on your activity but you may feel fatigued for a few days. 2. After you arrive home you may have a light meal and return to your normal diet as you can tolerate it without feeling sick to your stomach. 3. You may have a bloated, gaseous feeling in your belly (abdomen) after a colonoscopy. Passing gas and belching will help. Walking or lying down on your left side with your knees flexed may relieve the discomfort. Wound Care Instruction Pain Control Use ice!? Ice keeps the swelling down and swelling is what causes pain.? Never apply ice directly to the skin.? Wrap it in a towel or cloth.? Apply ice 20 minutes on and 20 minutes off for pain control.? Use as needed. Take Tylenol 500 mg by mouth with food every 4 hours as needed for pain. Or ibuprofen 600 mg by mouth with food every 6 hours as needed for pain.? Do not take Tylenol if you have a history of heavy drinking, hepatitis C or liver problems.? Do not take ibuprofen if you have a history of stomach ulcers/problems, bleeding problem or kidney issues. ? Always wash your hands before touching your incision. ? Keep the incision clean, dry, and out of water, keep the incision out of water. ? Do not to pick at the scabs. Scabs help protect the wound. ? You can take a shower in 24 hours and wash the incision with soap and water. Pat dry/don?t scrub. It?s OK to wash around the incision. But don?t spray water directly on it. ? Pat stitches dry if they get wet. Don't rub. ? Check the incision site daily for pain, redness, drainage, swelling, or separation of the incision edges. ? Make sure any clothing that touches the incision is loose-fitting. This will prevent rubbing. As your incision heals, the skin may appear pink or red. It may also feel slightly bumpy or raised. This is called a healing ridge. Over time, the color should fade and the raised skin will become less noticeable. When to seek medical care Call your healthcare provider right away if you have any of these: ? More pain, redness, swelling, bleeding, or foul-smelling discharge around the incision area ? Fever of 101?F (38.3?C) or higher, or as directed by your child's healthcare provider ? Shaking chills ? Vomiting or nausea that doesn?t go away ? Numbness, coldness, or tingling around the incision area, or changes in skin color ? Opening of the sutures or wound -Stitches or demetris that come apart or fall out or surgical tape falls off before 7 days, or as directed by your healthcare provider ?[facility]: [phone] Call the office at [phone] (Office) or [phone] (Hospital) right away if you notice any of the following: a.Vomiting of blood or ?coffee ground stools?. b.Rectal bleeding 1Tbsp, blood clots or continuous bleeding. c.Severe belly (abdominal) pain. d.A hard distended belly (abdomen) and an inability to pass gas. 4. Please don?t expect to have a normal BM (bowel movement) for 2-3 days after your procedure. 5. If there are questions regarding the findings of your procedure, please contact your doctor 6. If you are unable to contact your doctor with a problem, contact the hospital at [phone]. 7. Continue all your regular medications unless directed otherwise. I understand the above instructions and have no questions. Signature of Patient or Adult Escort Name of Responsible Adult Escort Signature of Nurse Date/Time Stand Alone Forms: Anesthesia Discharge InstRonnell, Alexis Riggins (DSU) Activity:: see above Remove Dressings/Wound Care:: 24 hours Shower/Bathe:: 24 hours Diet:: see above Discharge Orders Discharge Orders: Discharge Order (Routine); Ordered 05/06/24 Ordered By: Nataly Holloway DS: Diagnosis Discharge Diagnosis (1) Impulse disorder: Status: Acute (2) Schizoaffective disorder: Status: Acute (3) Hyperlipidemia: Status: Acute (4) Diabetes mellitus type 2 in obese: Status: Acute (5) BMI 36.0-36.9,adult: Status: Acute (6) Obesity: Status: Chronic (7) Sialorrhea: Status: Acute (8) Lactose intolerance: Status: Acute (9) Tubulovillous adenoma of colon: Status: Acute Asessment and Plan: The patient is seen and examined after their colonoscopy.? The patient has been able to pass gas.? They are not having abdominal pain.? They have been able to tolerate liquids and a snack.? They do not have any nausea or vomiting.? They are not having any chest pain or shortness of breath.??? They are not having any rectal bleeding. Their vital signs have been stable-see nursing notes. We discussed findings during their colonoscopy, and any biopsies that were done/polyps that were removed. The patient will be sent a letter with any biopsy results, and when to repeat the colonoscopy.-see discharge instructions. Patient was given explicit instructions to follow-up regarding colonoscopy-refer to discharge instructions.? We reviewed resumption of medications. Patient verbalized understanding and discharged in stable and satisfactory condition- See nursing notes. (10) Benign prostatic hyperplasia without lower urinary tract symptoms: Status: Acute (11) Parkinsonism: Status: Acute (12) Epilepsy: Status: Acute (13) Dysarthria: Status: Acute (14) COPD (chronic obstructive pulmonary disease): Status: Chronic (15) Psoriasis: Status: Chronic (16) Atypical pigmented lesion: Status: Acute
[2024-05-07 10:44] VITALS: BP 130/94; PULSE 74; RESP 18; TEMP 36.4; O2SAT 96
[2024-05-07] MEDS: Lactated Ringers 1,000 ML 80 ML IV (11:02)
--- NOTE | 2024-05-07 11:20 | W.ANESPRE ---
General Info Date of Service Date Performed: 05/07/24 Height: 5 ft 8 in Weight: 99.3 kg Body Mass Index (BMI): 33.3 Surgical Procedure: Operation Date: 05/07/24 10:40 Proposed Procedure Side Surgeon p Colonoscopy Nataly Holloway, DO s Excision Lesion on Back Nataly Holloway, Meds Allergies and Home Medications Allergies Allergy/AdvReac Type Severity Reaction Status Date / Time lactose Allergy Nausea Verified 05/07/24 10:28 Home Medication ?Medication ?Instructions ?Recorded clonazepam 1 mg tablet 1 mg PO BID 02/21/20 naproxen 500 mg tablet 500 mg PO BID 11/29/20 risperidone 1 mg tablet (Risperdal) 1 mg PO BID 11/29/20 famotidine 20 mg tablet 40 mg PO HS 02/28/21 lactase 9,000 unit chewable tablet 18,000 unit PO PRN 02/12/22 (Lactaid Fast Act) gemfibrozil 600 mg tablet 600 mg PO DAILY 04/26/22 omeprazole 40 mg capsule,delayed 40 mg PO DAILY 04/26/22 release camphor 4 %-methyl salicylate 30 1 applic topical TID PRN 01/02/23 %-menthol 10 % topical cream (Bengay Ultra Strength) ferrous sulfate 325 mg (65 mg 325 mg PO DAILY 01/02/23 iron) tablet psyllium husk 0.52 gram capsule 0.52 g PO DAILY 01/02/23 (Fiber (psyllium husk)) risperidone 2 mg tablet (Risperdal) 2 mg PO DAILY 01/02/23 topiramate 100 mg tablet (Topamax) 100 mg PO .COMPLEX 01/02/23 lithium carbonate 300 mg capsule 300 mg PO DAILY 01/06/23 lorazepam 1 mg tablet 1 mg PO HS 01/06/23 lorazepam 2 mg tablet See Rx Instructions PO BID PRN 01/06/23 agitation docusate sodium 100 mg capsule 100 mg PO BID #180 caps 07/09/23 finasteride 5 mg tablet 5 mg PO DAILY #30 tabs 08/04/23 tamsulosin 0.4 mg capsule 0.8 mg (2 x 0.4 mg) PO DAILY #60 10/27/23 caps carbidopa 25 mg-levodopa 100 mg 1 tab PO TID #270 tabs 11/19/23 tablet (Sinemet) quetiapine 100 mg tablet 150 mg PO QHS 12/08/23 acetaminophen 500 mg tablet 500 mg PO Q6H PRN pain #90 tabs 12/09/23 (Tylenol Extra Strength) ketoconazole 2 % topical cream 1 applic topical DAILY #120 grams 01/07/24 urea 40 % topical cream 1 applic topical DAILY #28.35 grams 01/07/24 secukinumab 75 mg/0.5 mL 300 mg subcut MONTHLY 04/14/24 subcutaneous syringe (Cosentyx) cephalexin 500 mg capsule 500 mg PO QID 05/06/24 famotidine 40 mg tablet mg 05/07/24 lithium carbonate 600 mg capsule 600 mg PO HS 05/07/24 Current Visit Medications: Current Medications Generic Name Dose Route Start Last Admin Trade Name Freq PRN Reason Stop Dose Admin Ringer's Solution 1,000 mls @ 80 mls/hr 05/07/24 06:00 05/07/24 11:02 IV 05/07/24 23:59 80 mls/hr INFUSION CRUZ Administration IV Miscellaneous Supplies 1 each 05/07/24 06:00 Iv Access IV 05/07/24 23:59 DIRECTED CRUZ Sodium Chloride 0 ml 05/07/24 06:00 Normal Saline Flush 10 Ml Syr IV 05/07/24 23:59 PRN PRN Sodium Chloride 0 ml 05/07/24 06:00 Normal Saline 10 Ml Vial IJ 05/07/24 23:59 DIRECTED PRN Sterile Water 0 ml 05/07/24 06:00 Water,Injection,Sterile 10 Ml Vial IJ 05/07/24 23:59 DIRECTED PRN PFSH Active Problems Active Problems: Problem Status Onset Code Atypical pigmented lesion Acute L81.9 Atypical pigmented skin lesion Acute L81.9 Sialorrhea Acute K11.7 Onychomycosis Acute B35.1 Obesity Chronic E66.9 Onychomycosis due to dermatophyte Acute B35.1 Infected sebaceous cyst of skin Acute L72.3, L08.9 Dysarthria Acute R47.1 Sebaceous cyst Acute L72.3 Corns and callosities Acute L84 Nail dystrophy Acute L60.3 BMI 36.0-36.9,adult Acute Z68.36 Benign prostatic hyperplasia without lower urinary tract symptoms Acute N40.0 Parkinsonism Acute G20 Edema Acute R60.9 Hemorrhoids Acute K64.9 Epilepsy Acute G40.909 Constipation Acute K59.00 Drooling Acute K11.7 Tubulovillous adenoma of colon Acute D12.6 Lactose intolerance Acute E73.9 Diabetes mellitus type 2 in obese Acute E11.69, E66.9 Hyperlipidemia Acute E78.5 Psoriasis Chronic L40.9 COPD (chronic obstructive pulmonary disease) Chronic J44.9 Schizoaffective disorder Acute F25.9 Impulse disorder Acute F63.9 Medical History Medical History Anemia Helicobacter pylori (H. pylori) Gastric antral vascular ectasia Serrated adenoma of colon Seizures per provider states its been a very very long time since he's had one, at least +6 years Chronic lower back pain History of splenomegaly Neuroleptic-induced parkinsonism Tubulovillous adenoma (~11/2016) 2016: with focal high grade dysplasia Skin cancer Asthma Sleep disturbance Urge incontinence Foot callus Drug-induced Parkinsonism Chronic diarrhea Urinary incontinence BPH (benign prostatic hyperplasia) Surgical History Surgical History History of incision and drainage (~12/2023) Sebaceous cyst on back History of esophagogastroduodenoscopy (EGD) (~05/10/22) S/P skin cancer resection Hx of colonoscopy H/O pilonidal cyst Colonoscopy - MAC (11/08/16) Tobacco Smoking/Tobacco Use Status: Former Tobacco Use Alcohol Alcohol Intake: never Substance Use Substance use: Never Substance use type: does not use Vital Signs and Lab Results Vital Signs Most Recent Vital Signs in EMR: Most Recent Vital Signs Temp Pulse Resp BP Pulse Ox 36.4 C L 74 18 130/94 H 96 05/07/24 10:44 05/07/24 10:44 05/07/24 10:44 05/07/24 10:44 05/07/24 10:44 Lab Results Blood Type / Crossmatch: No Data to Display Complete Blood Count: No Data to Display Complete Metabolic Panel: No Data to Display Liver Function Panel: No Data to Display Coagulation Panel: No Data to Display Cardiac Panel: No Data to Display Arterial Blood Gas: No Data to Display Venous Blood Gas: No Data to Display Pancreas Panel: No Data to Display Thyroid Panel: No Data to Display Infectious Disease: No Data to Display Blood Cultures: No Data to Display Toxicology Panel: No Data to Display Imaging and Studies Imaging and Studies Study information below may be from another EMR and interpreted by another provider. Please see original notes in EMR for more complete details. Echocardiogram Summary: Date of study: 09/09/2018 Transthoracic Echocardiography Summary: 1. Left ventricle: The cavity size was normal. Wall thickness was normal. Systolic function was normal. The estimated ejection fraction was 55-60%. Wall motion was normal; there were no regional wall motion abnormalities. Diastolic parameters were normal. 2. Right ventricle: The cavity size was normal. Wall thickness was normal. Systolic function was normal. Anesthesia Assessment and Plan Anesthesia History Personal History: No History of Anesthesia Complications Family History: No Family History of Anesthesia Complications Exercise Tolerance Exercise Tolerance: Metabolic Equivalents>4 Pertinent Negatives Pertinent Negatives: No Major Cardiovascular Symptoms or Complaints and No Major Pulmonary Symptoms or Complaints Cardiac & Pulmonary Exam Cardiac Exam: Normal S1/S2 Heart Sounds Pulmonary Exam: Clear Bilateral Breath Sounds Implantable Cardiac Device Does patient have a Pacemaker or an ICD?: No Airway Exam Known Difficult Airway: No Mallampati Class: 3 Mouth Opening: Normal (> 3cm) Thyromental Distance: Greater than 3 cm Neck Range of Motion: Full ROM Neck Circumference: Normal Teeth Condition: Generalized Poor Dentition (none loose per patient and caregiver) ASA Classification ASA Score: ASA 3 Emergency Case?: No NPO Status NPO Status: NPO Clears >2 hours, Solids >8 hours Anesthesia Plan Resuscitation Status: Full Code Anesthesia Technique: General Anesthesia Airway Planned: Natural Airway Monitors Used: Standard Monitors
[2024-05-07 11:22] VITALS: BMI 33.3
--- NOTE | 2024-05-07 12:00 | SKI_PTH ---
PATIENT: Carlos Collins LOC: [facility] U#:[id number] AGE/SX: 58/M ROOM: RE05/07/[address]: Nataly Holloway : 1965 BED: DIS: 05/07/2024 SPEC #: [id number] RECD: 05/07/24 17:31 STATUS: LUIS REQ #: [id number] DERRICK: 05/07/24 12:[address]: Nataly Holloway DEPT: Surgical Specimen RECD BY: Annie Park ENTERED: 05/07/24 17:35 SP TYPE: ANDRIA KIRAN DR: Rosanne Pritchett Tissues: 1 - SKIN BIOPSY(SHAVE/PUNCH) Procedures: SKIN LEVEL 4 Comments: [id number]
[2024-05-07 12:37] VITALS: BP 89/64; PULSE 77; RESP 20; TEMP 36.7; O2SAT 93
[2024-05-07 13:07] VITALS: BP 111/72; PULSE 70; RESP 20; TEMP 36.7; O2SAT 97
--- NOTE | 2024-05-07 13:09 | W.ANESPOSTOP ---
Postoperative Evaluation Date, Time and Location Date Performed: 05/07/24 Time Performed: 13:04 Patient Location: Day Surgery Unit Vital Signs Most Recent Imported Vital Signs: Most Recent Vital Signs Temp Pulse Resp BP Pulse Ox 36.7 C 70 20 111/72 97 05/07/24 13:07 05/07/24 13:07 05/07/24 13:07 05/07/24 13:07 05/07/24 13:07 Pain Score Most Recent Pain Score: Most Recent Pain Score Pain Level 0 05/07/24 13:07 Assessment Mental Status: Awake (Alert & Oriented to Patient Baseline) Airway and Respiratory Function: Patent airway with normal (patient baseline) respiratory exam Cardiovascular Function: Hemodynamically Stable Hydration Status: Adequately Hydrated Nausea & Vomiting: No Nausea or Vomiting Pain: Pt. Denies Any Pain Peripheral Nerve Block: Patient did not receive a nerve block
--- NOTE | 2024-05-07 13:10 | PDOC.DSDIS_ITS ---
Date of service: 05/07/24 Time of Service: 13:10 Discharge Plan Disposition Patient Disposition: Home Discharge Details Reason For Visit: colon scope and lesion removal Attending Provider: Nataly Holloway Primary Care Provider: Rosanne Pritchett Home Meds and New Rx's Prescriptions: Continued naproxen 500 mg tablet 500 mg PO BID ferrous sulfate 325 mg (65 mg iron) tablet 325 mg PO DAILY risperidone [Risperdal] 2 mg tablet 2 mg PO DAILY Rx Instructions: at 1 pm topiramate [Topamax] 100 mg tablet 100 mg PO .COMPLEX Rx Instructions: 100 mg am and 200 mg at 1700 psyllium husk [Fiber (psyllium husk)] 0.52 gram capsule 0.52 g PO DAILY Bengay Ultra Strength 4-30-10 % cream 1 applic topical TID PRN Rx Instructions: to right upper leg prn pain quetiapine 100 mg tablet 150 mg PO QHS ketoconazole 2 % cream 1 applic topical DAILY Qty: 120 6RF Rx Instructions: Apply to toenails once daily urea 40 % cream 1 applic topical DAILY Qty: 28.35 3RF famotidine 20 mg tablet 40 mg PO HS lorazepam 2 mg tablet See Rx Instructions PO BID PRN (Reason: agitation) Rx Instructions: Takes 2mg daily at 1300 and another 2mg daily prn carbidopa-levodopa [Sinemet] 25-100 mg tablet 1 tab PO TID Qty: 270 3RF Rx Instructions: Take at 6am, 11am, and 4pm risperidone [Risperdal] 1 mg tablet 1 mg PO BID Lactaid Fast Act 9,000 unit tablet,chewable 18,000 unit PO PRN Rx Instructions: administer with meals and/or snacks gemfibrozil 600 mg tablet 600 mg PO DAILY omeprazole 40 mg capsule,delayed release(DR/EC) 40 mg PO DAILY lithium carbonate 300 mg capsule 300 mg PO DAILY docusate sodium 100 mg capsule 100 mg PO BID Qty: 180 3RF finasteride 5 mg tablet 5 mg PO DAILY Qty: 30 11RF tamsulosin 0.4 mg capsule 0.8 mg PO DAILY Qty: 60 11RF Cosentyx 75 mg/0.5 mL syringe 300 mg subcut MONTHLY clonazepam 1 mg tablet 1 mg PO BID lorazepam 1 mg tablet 1 mg PO HS Rx Instructions: . acetaminophen [Tylenol Extra Strength] 500 mg tablet 500 mg PO Q6H PRN (Reason: pain) Qty: 90 0RF cephalexin 500 mg capsule 500 mg PO QID Discontinued polyethylene glycol 3350 17 gram/dose powder 238 g PO ONCE Qty: 238 0RF Rx Instructions: take per colonoscopy instructions bisacodyl [Dulcolax (bisacodyl)] 5 mg tablet,delayed release (DR/EC) 5 mg PO ONCE Qty: 8 0RF Rx Instructions: take per colonoscopy instructions polyethylene glycol 3350 17 gram/dose powder See Rx Instructions .ROUTE .COMPLEX Qty: 510 0RF Dose Instruction: TAKE 17G BY MOUTH EVERY OTHER DAY Rx Instructions: TAKE 17G BY MOUTH EVERY OTHER DAY No Action famotidine 40 mg tablet lithium carbonate 600 mg capsule 600 mg PO HS Discharge Instructions Additional Instructions: [facility] Colonoscopy Post- Op Instructions Instructions for Everyone who is given Anesthesia: For your safety, please do the following for the next twenty-four (24) hours: *Do Not operate a motor vehicle (car, truck, motorcycle, etc.) *Do Not drink alcoholic beverages or use any recreational drugs for the first 24 hours or while taking pain medications. The medications in your body may have a reaction that can be dangerous. *Do Not make any important decisions or sign any important papers. Findings: no polyps few diverticula Follow up: Repeat in 5 yrs time sutures come out in 10 days. Can follow-up in clinic for suture removal or have them taken out at home. Call [phone] 1. No lifting over 20 pounds or strenuous activity for the first 24 hours after your procedure. After 24 hours there are no restrictions on your activity but you may feel fatigued for a few days. 2. After you arrive home you may have a light meal and return to your normal diet as you can tolerate it without feeling sick to your stomach. 3. You may have a bloated, gaseous feeling in your belly (abdomen) after a colonoscopy. Passing gas and belching will help. Walking or lying down on your left side with your knees flexed may relieve the discomfort. Wound Care Instruction Pain Control Use ice!? Ice keeps the swelling down and swelling is what causes pain.? Never apply ice directly to the skin.? Wrap it in a towel or cloth.? Apply ice 20 minutes on and 20 minutes off for pain control.? Use as needed. Take Tylenol 500 mg by mouth with food every 4 hours as needed for pain. Or ibuprofen 600 mg by mouth with food every 6 hours as needed for pain.? Do not take Tylenol if you have a history of heavy drinking, hepatitis C or liver problems.? Do not take ibuprofen if you have a history of stomach ulcers/problems, bleeding problem or kidney issues. ? Always wash your hands before touching your incision. ? Keep the incision clean, dry, and out of water, keep the incision out of water. ? Do not to pick at the scabs. Scabs help protect the wound. ? You can take a shower in 24 hours and wash the incision with soap and water. Pat dry/don?t scrub. It?s OK to wash around the incision. But don?t spray water directly on it. ? Pat stitches dry if they get wet. Don't rub. ? Check the incision site daily for pain, redness, drainage, swelling, or separation of the incision edges. ? Make sure any clothing that touches the incision is loose-fitting. This will prevent rubbing. As your incision heals, the skin may appear pink or red. It may also feel slightly bumpy or raised. This is called a healing ridge. Over time, the color should fade and the raised skin will become less noticeable. When to seek medical care Call your healthcare provider right away if you have any of these: ? More pain, redness, swelling, bleeding, or foul-smelling discharge around the incision area ? Fever of 101?F (38.3?C) or higher, or as directed by your child's healthcare provider ? Shaking chills ? Vomiting or nausea that doesn?t go away ? Numbness, coldness, or tingling around the incision area, or changes in skin color ? Opening of the sutures or wound -Stitches or demetris that come apart or fall out or surgical tape falls off before 7 days, or as directed by your healthcare provider ?[facility]: [phone] Call the office at [phone] (Office) or [phone] (Hospital) right away if you notice any of the following: a.Vomiting of blood or ?coffee ground stools?. b.Rectal bleeding 1Tbsp, blood clots or continuous bleeding. c.Severe belly (abdominal) pain. d.A hard distended belly (abdomen) and an inability to pass gas. 4. Please don?t expect to have a normal BM (bowel movement) for 2-3 days after your procedure. 5. If there are questions regarding the findings of your procedure, please contact your doctor 6. If you are unable to contact your doctor with a problem, contact the hospital at [phone]. 7. Continue all your regular medications unless directed otherwise. I understand the above instructions and have no questions. Signature of Patient or Adult Escort Name of Responsible Adult Escort Signature of Nurse Date/Time Stand Alone Forms: Anesthesia Discharge Inst., Alexis Riggins ([facility]) Activity:: see above Remove Dressings/Wound Care:: 24 hours Shower/Bathe:: 24 hours Diet:: see above Discharge Orders Discharge Orders: Discharge Order (Routine); Ordered 05/06/24 Ordered By: Nataly oHlloway DS: Diagnosis Discharge Diagnosis (1) Impulse disorder: Status: Acute (2) Schizoaffective disorder: Status: Acute (3) Hyperlipidemia: Status: Acute (4) Diabetes mellitus type 2 in obese: Status: Acute (5) BMI 36.0-36.9,adult: Status: Acute (6) Obesity: Status: Chronic (7) Sialorrhea: Status: Acute (8) Lactose intolerance: Status: Acute (9) Tubulovillous adenoma of colon: Status: Acute (10) Benign prostatic hyperplasia without lower urinary tract symptoms: Status: Acute (11) Parkinsonism: Status: Acute (12) Epilepsy: Status: Acute (13) Dysarthria: Status: Acute (14) COPD (chronic obstructive pulmonary disease): Status: Chronic (15) Psoriasis: Status: Chronic (16) Atypical pigmented lesion: Status: Acute
== END 2024-05-07 13:30 | disposition home or self-care (01) ==
LOC: SUR 10:07
PROVIDERS: PCP Physician Assistant; Visit Provider Surgery
PROC: 0DJD8ZZ Inspection of Lower Intestinal Tract, Via Natural or Artificial Opening Endoscopic (ICD-10-PCS; CPT 45378; principal; 2024-05-07 10:30)
PROC: (CPT 11406; 2024-05-07 10:30)
DX: L72.3 Sebaceous cyst (principal); J44.9 Chronic obstructive pulmonary disease, unspecified; G40.909 Epilepsy, unspecified, not intractable, without status epilepticus; Z79.899 Other long term (current) drug therapy; F25.9 Schizoaffective disorder, unspecified; L82.1 Other seborrheic keratosis
CPT/HCPCS: 11406; 88305; J2003; J2371; J2704

== ENCOUNTER → 2024-05-19 13:25 | Outpatient (BNVA) | payer MEDICARE, MEDICAID, SELFPAY | PROVIDERS: PCP Physician Assistant; Referring Provider Physician Assistant; Visit Provider Physical Therapy Assistant | DX: Z48.817 Encounter for surgical aftercare following surgery on the skin and subcutaneous tissue (principal); L72.3 Sebaceous cyst; L08.9 Local infection of the skin and subcutaneous tissue, unspecified ==

== ENCOUNTER → 2024-05-19 13:45 | Outpatient (BNVA) | payer MEDICARE, MEDICAID, SELFPAY | PROVIDERS: PCP Physician Assistant; Visit Provider Psychiatry & Neurology Neurology | DX: K59.00 Constipation, unspecified (principal); G40.909 Epilepsy, unspecified, not intractable, without status epilepticus; R47.1 Dysarthria and anarthria; G21.11 Neuroleptic induced parkinsonism | CPT/HCPCS: 99213 ==

== ENCOUNTER → 2024-06-10 10:55 | Outpatient (BNVA) | payer MEDICARE, MEDICAID, SELFPAY | PROVIDERS: PCP Physician Assistant; Referring Provider Physician Assistant; Visit Provider Surgery | DX: L72.3 Sebaceous cyst (principal) | CPT/HCPCS: 11042 ==

== ENCOUNTER → 2024-07-01 11:30 | Outpatient (BNVA) | payer MEDICARE, MEDICAID, SELFPAY | PROVIDERS: PCP Physician Assistant; Referring Provider Physician Assistant; Visit Provider Surgery | DX: L72.3 Sebaceous cyst (principal); L08.9 Local infection of the skin and subcutaneous tissue, unspecified ==

== ENCOUNTER 2024-07-01 16:10 | Outpatient (REF) | payer MEDICARE, MEDICAID, SELFPAY ==
[2024-07-01 19:21] LABS: Abs Immature Grans 0.07 10^3/uL (0.0-0.06); Absolute Basophil Count 0.07 10^3/uL (0.0-0.2); Absolute Eosinophil Count 0.37 10^3/uL (0.0-0.7); Absolute Lymphocyte Count 1.39 10^3/uL (1.2-3.4); Absolute Monocyte Count 0.37 10^3/uL (0.1-0.8); Basophils % 1.2 %; Eosinophils % 6.5 %; HCT 43.6 % (40.0-50.0); HGB 14.4 g/dL (13.5-17.5); Immature Grans % 1.2 %; Lymphocytes % 24.5 %; MCH 30.4 pg (27.0-33.0); MCV 92 fL (80-95); MPV 12.1 fL (8.0-11.0); Monocytes % 6.5 %; Neutrophils % 60.1 %; Platelet Count 207 10^3/uL (130-400); RBC 4.74 10^6/uL (4.36-5.78); RDW 13.8 % (11.8-14.1); RDW-SD 46.7 fL; WBC 5.67 10^3/uL (4.4-10.8)
[2024-07-01 19:45] LABS: ALT 10 U/L (16-63); AST 15 U/L (15-37); Albumin 4.2 g/dL (3.4-5.0); Alkaline Phosphatase 71 U/L (46-116); Anion Gap 8.9 mmol/L (3-11); BUN 25 mg/dL (7-18); Bilirubin, Total 0.45 mg/dL (0.2-1.0); CO2 22.1 mmol/L (21.0-32.0); CREATININE 1.1 mg/dL (0.70-1.30); Calcium 9.6 mg/dL (8.5-10.1); Chloride 110 mmol/L (98-107); Ferritin 54 ng/mL (26-388); Glucose 110 mg/dL (74-106); Iron 60 ug/dL (65-175); Potassium 4.3 mmol/L (3.5-5.1); Sodium 141 mmol/L (136-145); TSH (W/Ref FT4) 1.42 uIU/mL (0.36-3.74); Total Iron Binding Capacity 378 ug/dL (250-450); Total Protein 8.2 g/dL (6.4-8.2); Transferrin Sat 16 % (20-55)
[2024-07-02 18:30] LABS: HIV-1/2 Ag & Ab Screen Negative (Negative)
[2024-07-02 18:44] LABS: Hepatitis C Ab w Rflx HCV PCR Negative (Negative)
== END 2024-07-01 16:11 | disposition home or self-care (01) ==
LOC: NCHCN 16:10
PROVIDERS: PCP Physician Assistant; Visit Provider Physician Assistant
DX: D50.9 Iron deficiency anemia, unspecified (principal); R04.2 Hemoptysis
CPT/HCPCS: 80053; 86803; 87389; 82728; 83540; 83550; 84443; 85025

== ENCOUNTER 2024-07-12 01:31 | Outpatient (CLI) | payer MEDICARE, MEDICAID, SELFPAY ==
--- NOTE | 2024-07-12 14:22 | DI.RAD_ITS ---
Exam(s) XR CHEST 2V PA LATERAL EXAM: XR CHEST 2V PA LATERAL CLINICAL HISTORY: HEMOPTYSIS, R04.2 TECHNIQUE: 2D digital imaging was performed. Two views. COMPARISON: No exams were available for comparison FINDINGS: Positioning suboptimal due to patient condition. HEART: Normal size. Aorta: Not dilated. PULMONARY VASCULATURE: Normal. MEDIASTINUM: Unremarkable. LUNGS: Patchy infiltrate seen in the right lower lobe PLEURAL SPACE: No pleural effusion or pneumothorax. BONE:Unremarkable for age. SOFT TISSUES: Unremarkable. IMPRESSION: Right lower lobe infiltrate. DATA REPOSITORY: RADIATION DOSE DELIVERED:
== END 2024-07-12 01:51 ==
LOC: DI 01:31
PROVIDERS: PCP Physician Assistant; Visit Provider Physician Assistant
DX: R04.2 Hemoptysis (principal); R91.8 Other nonspecific abnormal finding of lung field
CPT/HCPCS: 71046

== ENCOUNTER 2024-11-11 15:09 | Outpatient (REF) | payer MEDICARE, MEDICAID, SELFPAY ==
[2024-11-11 19:20] LABS: Abs Immature Grans 0.09 10^3/uL (0.0-0.06); Absolute Basophil Count 0.05 10^3/uL (0.0-0.2); Absolute Eosinophil Count 0.27 10^3/uL (0.0-0.7); Absolute Neutrophil Count 5.39 10^3/uL (1.2-6.7); Basophils % 0.7 %; Eosinophils % 3.7 %; HCT 46.1 % (40.0-50.0); HGB 14.6 g/dL (13.5-17.5); Immature Grans % 1.2 %; Lymphocytes % 15.1 %; MCH 29.7 pg (27.0-33.0); MCHC 31.7 % (32.0-36.0); MCV 94 fL (80-95); MPV 12.2 fL (8.0-11.0); Monocytes % 5.5 %; Neutrophils % 73.8 %; Platelet Count 231 10^3/uL (130-400); RBC 4.91 10^6/uL (4.36-5.78); RDW 14.1 % (11.8-14.1); RDW-SD 47.5 fL
[2024-11-11 19:55] LABS: Ferritin 110 ng/mL (26-388)
[2024-11-11 20:20] LABS: Iron 49 ug/dL (65-175); Total Iron Binding Capacity 338 ug/dL (250-450); Transferrin Sat 14 % (20-55)
== END 2024-11-11 15:10 | disposition home or self-care (01) ==
LOC: NCHCN 15:09
PROVIDERS: PCP Physician Assistant; Visit Provider Physician Assistant
DX: D50.9 Iron deficiency anemia, unspecified (principal)
CPT/HCPCS: 82728; 83540; 83550; 85025

== ENCOUNTER → 2024-11-17 12:40 | Outpatient (BNVA) | payer MEDICARE, MEDICAID, SELFPAY | PROVIDERS: PCP Physician Assistant; Referring Provider Physician Assistant; Visit Provider Psychiatry & Neurology Neurology | DX: K59.00 Constipation, unspecified (principal); G40.909 Epilepsy, unspecified, not intractable, without status epilepticus; R47.1 Dysarthria and anarthria; R73.03 Prediabetes; K11.7 Disturbances of salivary secretion | CPT/HCPCS: 99213 ==

== ENCOUNTER → 2024-12-21 09:48 | Outpatient (BNVA) | payer MEDICARE, MEDICAID, SELFPAY | PROVIDERS: PCP Physician Assistant; Visit Provider Nurse Practitioner Gerontology | DX: N40.0 Benign prostatic hyperplasia without lower urinary tract symptoms (principal); R39.9 Unspecified symptoms and signs involving the genitourinary system; G20.C Parkinsonism, unspecified | CPT/HCPCS: 51798; 99213 ==

== ENCOUNTER 2025-05-12 19:25 | Outpatient (REF) | payer MEDICARE, MEDICAID, SELFPAY ==
[2025-05-12 19:20] LABS: Abs Immature Grans 0.06 10^3/uL (0.0-0.06); HCT 42.2 % (40.0-50.0); HGB 13.9 g/dL (13.5-17.5); Immature Grans % 1.2 %; MCH 30.5 pg (27.0-33.0); MCHC 32.9 % (32.0-36.0); MCV 93 fL (80-95); MPV 12.8 fL (8.0-11.0); Platelet Count 171 10^3/uL (130-400); RBC 4.56 10^6/uL (4.36-5.78); RDW 13.9 % (11.8-14.1); RDW-SD 47.1 fL; WBC 4.89 10^3/uL (4.4-10.8)
[2025-05-12 19:32] LABS: Iron 98 ug/dL (65-175); Total Iron Binding Capacity 386 ug/dL (250-450); Transferrin Sat 25 % (20-55)
[2025-05-12 19:58] LABS: ALT 24 U/L (16-63); AST 20 U/L (15-37); Albumin 4.3 g/dL (3.4-5.0); Alkaline Phosphatase 68 U/L (46-116); Anion Gap 9.9 mmol/L (3-11); BUN 25 mg/dL (7-18); Bilirubin, Total 0.5 mg/dL (0.2-1.0); CO2 22.1 mmol/L (21.0-32.0); Calcium 9.4 mg/dL (8.5-10.1); Chloride 108 mmol/L (98-107); Estimated GFR 70.10 (mL/min/1.73m2); Ferritin 81 ng/mL (26-388); Glucose 108 mg/dL (74-106); Potassium 4.2 mmol/L (3.5-5.1); Sodium 140 mmol/L (136-145); Total Protein 7.6 g/dL (6.4-8.2)
== END 2025-05-12 19:26 | disposition home or self-care (01) ==
LOC: NCHCN 19:25
PROVIDERS: PCP Physician Assistant; Visit Provider Physician Assistant
DX: D50.9 Iron deficiency anemia, unspecified (principal); F25.9 Schizoaffective disorder, unspecified
CPT/HCPCS: 80053; 82728; 83540; 83550; 85025